=== PATIENT | female | born 1945 | race Caucasian/White ===

== ENCOUNTER 2017-02-25 03:53 | Inpatient (IN) | payer MEDICARE ==
[~2017-02-25] VITALS: Ht 157.5 cm; Wt 83.7 kg
[2017-02-25] VITALS (13 sets, daily range): BP systolic 134–178; BP diastolic 61–91; PULSE 92–115; RESP 18–19; TEMP 97.3–98.9; O2SAT 95–98
[2017-02-25] MEDS ORDERED: SODIUM CHLOR 0.9% 1000 ML INJ 1,000 ML IV SCH (04:35)
[2017-02-25] MEDS ORDERED: ASPI81CH37 CHEW (04:39)
[2017-02-25] MEDS ORDERED: XANA1TAB2 PO (04:39)
[2017-02-25] MEDS ORDERED: LEVO25TA4 PO (04:39)
[2017-02-25] MEDS ORDERED: PAXI40TA PO (04:39)
[2017-02-25] MEDS ORDERED: LISI10TA3 PO (04:39)
[2017-02-25] MEDS ORDERED: SODIUM CHLORIDE 0.9% FLUSH 10 ML FLUSH IV FLUSH PRN ×2 (04:45→07:15)
--- NOTE | 2017-02-25 05:08 | PD ---
HPI Chief Complaint: Complaint Time Seen by Provider: 04:35 Travel History International Travel<30 days: No Contact w/Intl Traveler<30days: No Traveled to known affect area: No History of Present Illness HPI 71-year-old female presents to the emergency department by private transportation for complaint of inability to urinate comfortably and decreased urine output volume since approximate 8:30 PM on evening. Patient complains of dysuria. Patient's noted some blood in her urine. Patient has prior history of kidney stones. Patient denies other concerns or complaints. Patient rates pain as moderate to severe. Patient is status post cholecystectomy. Patient also history of anxiety and took Xanax 2 mg prior to arrival to the emergency Department. No fever no chills no nausea no vomiting no flank pain. No vaginal discharge or abnormal stools. PFSH Past Medical History Narrative Medical Anxiety, hypertension, kidney stones, hypothyroidism, cholecystectomy, orthopedic surgery; no tobacco use; nursing notes reviewed Anxiety: Yes Cardiovascular Problems: Yes Diminished Hearing: No Hypertension: Yes Immunizations Current: Yes Thyroid Disease: Yes Tetanus Vaccination: Unknown Influenza Vaccination: Yes ?: Not Menopausal: Yes Social History Alcohol Use: Yes Tobacco Use: No Substance Use: No Allergies-Medications (Allergen,Severity, Reaction): Coded Allergies: No Known Allergies (Unverified , 02/25/17) Reported Meds & Prescriptions Reported Meds & Active Scripts Active Reported Xanax (Alprazolam) 1 Mg Tab 1 Mg PO Q6H PRN Aspirin Low Dose (Aspirin) 81 Mg Chew 81 Mg CHEW DAILY Lisinopril 10 Mg Tab 10 Mg PO DAILY Levothyroxine (Levothyroxine Sodium) 25 Mcg Tab 25 Mcg PO DAILY Paxil (Paroxetine HCl) 40 Mg Tab 50 Mg PO DAILY Review of Systems Except as stated in HPI: all other systems reviewed are Neg Physical Exam Narrative GENERAL: Well-developed well-nourished mildly anxious female in no respiratory distress SKIN: Warm and dry. HEAD: Normocephalic. EYES: No scleral icterus. No injection or drainage. NECK: Supple, trachea midline. No JVD or lymphadenopathy. CARDIOVASCULAR: Regular rate and rhythm without murmurs, gallops, or rubs. RESPIRATORY: Breath sounds equal bilaterally. No accessory muscle use. GASTROINTESTINAL: Abdomen soft, mild suprapubic and left sided tenderness to direct palpation without guarding or rebound, nondistended. MUSCULOSKELETAL: No cyanosis, or edema. BACK: Nontender without obvious deformity. No CVA tenderness. Data Data Last Documented VS Vital Signs Date Time Temp Pulse Resp B/P Pulse Ox O2 Delivery O2 Flow Rate FiO2 02/25/17 06:30 102 18 161/86 98 Room Air 02/25/17 04:24 98.7 Orders Basic Metabolic Panel (Bmp) (02/25/17 04:35) Complete Blood Count With Diff (02/25/17 04:35) Urinalysis - C+S If Indicated (02/25/17 04:35) Iv Access Insert/Monitor (02/25/17 04:35) Ecg Monitoring (02/25/17 04:35) Oximetry (02/25/17 04:35) Sodium Chlor 0.9% 1000 Ml Inj (Ns 1000 M (02/25/17 04:35) Sodium Chloride 0.9% Flush (Ns Flush) (02/25/17 04:45) Sodium Chlor 0.9% 1000 Ml Inj (Ns 1000 M (02/25/17 05:45) Blood Culture (02/25/17 05:31) Lactic Acid (02/25/17 05:31) Piperacil-Tazo 3.375 Gm Premix (Zosyn 3. (02/25/17 05:45) Urine Culture (02/25/17 04:50) Ct Abd/Pel W Iv Contrast(Rout) (02/25/17 ) Iohexol 350 Inj (Omnipaque 350 Inj) (02/25/17 06:15) Labs Laboratory Tests Test 02/25/17 02/25/17 04:40 04:50 Lactic Acid Level 1.7 mmol/L White Blood Count 21.0 TH/MM3 Red Blood Count 4.95 MIL/MM3 Hemoglobin 14.7 GM/DL Hematocrit 43.7 % Mean Corpuscular Volume 88.3 FL Mean Corpuscular Hemoglobin 29.6 PG Mean Corpuscular Hemoglobin 33.6 % Concent Red Cell Distribution Width 12.6 % Platelet Count 258 TH/MM3 Mean Platelet Volume 9.3 FL Neutrophils (%) (Auto) 79.1 % Lymphocytes (%) (Auto) 12.6 % Monocytes (%) (Auto) 5.3 % Eosinophils (%) (Auto) 1.7 % Basophils (%) (Auto) 1.3 % Neutrophils # (Auto) 16.5 TH/MM3 Lymphocytes # (Auto) 2.7 TH/MM3 Monocytes # (Auto) 1.1 TH/MM3 Eosinophils # (Auto) 0.4 TH/MM3 Basophils # (Auto) 0.3 TH/MM3 CBC Comment DIFF FINAL Differential Comment Urine Color YELLOW Urine Turbidity CLOUDY Urine pH 5.5 Urine Specific [place] 1.020 Urine Protein 300 OR GREATER mg/dL Urine Glucose (UA) NEG mg/dL Urine Ketones TRACE mg/dL Urine Occult Blood LARGE Urine Nitrite POS Urine Bilirubin NEG Urine Leukocyte Esterase MOD Urine RBC 50-99 /hpf Urine WBC 50-99 /hpf Urine WBC Clumps MOD Urine Squamous Epithelial 6-8 /hpf Cells Urine Bacteria MOD /hpf Microscopic Urinalysis Comment CULTURE INDICATED Sodium Level 138 MEQ/L Potassium Level 3.9 MEQ/L Chloride Level 103 MEQ/L Carbon Dioxide Level 26.1 MEQ/L Anion Gap 9 MEQ/L Blood Urea Nitrogen 17 MG/DL Creatinine 0.80 MG/DL Estimat Glomerular Filtration 71 ML/MIN Rate Random Glucose 118 MG/DL Calcium Level 9.0 MG/DL [facility] Medical Decision Making Medical Screen Exam Complete: Yes Emergency Medical Condition: Yes Medical Record Reviewed: Yes Interpretation(s) UA: Positive nitrites positive leukocyte Estrace positive WBCs positive for clumped wbc's, positive rbc's, positive blood positive bacteria cultures indicated Last Impressions Abdomen/Pelvis CT 02/25/17 0000 Signed Impressions: Service Date/Time: Saturday, February 25, 2017 06:05 - CONCLUSION: 1. Mild thickening of the bladder wall. Differential diagnosis includes cystitis in patient with history of dysuria. 2. No acute findings in the remainder of the abdomen and pelvis. Small hiatal hernia. Cholecystectomy. Mild fatty liver. Guille Justice MD CBC & BMP Diagram 02/25/17 04:50 Vital Signs Date Time Temp Pulse Resp B/P Pulse Ox O2 Delivery O2 Flow Rate FiO2 02/25/17 06:30 102 18 161/86 98 Room Air 02/25/17 06:30 102 18 02/25/17 05:34 106 18 151/75 95 Room Air 02/25/17 04:40 18 98 Room Air 02/25/17 04:26 115 18 02/25/17 04:24 98.7 115 18 178/91 98 02/25/17 04:05 98.7 115 18 178/91 98 Differential Diagnosis Cystitis, UTI, pyelonephritis, diverticulitis, renal colic, renal insufficiency , dehydration Narrative Course IV access obtained specimens collected and sent for resulting patient administered normal saline along with urine specimen collected Patient identified to have marked leukocytosis patient given additional IV fluid bolus lactic acid and blood cultures ordered patient administered Zosyn as well as CT abdomen and pelvis ordered At 6 AM patient now discloses a yesterday she had a non-syncopal trip and fall landing on her left knee and buttock but did not hit her head did not have loss of consciousness did not injure her neck or upper back also noninjected chest ribs or abdomen. Sepsis Criteria SIRS Criteria (2 or more): Heart rate over 90, WBC > 58346, < 4000 or > 10% bands Sepsis Criteria (SIRS+source): Infect source susp/known (UTI/pyelonephritis) Physician Communication Physician Communication call placed to [facility] service for admission --patient meets sepsis criterion Diagnosis Primary Impression: Cystitis Additional Impression: Sepsis Qualified Code: A41.9 - Sepsis, due to unspecified organism Admitting Information Admitting Physician Requests: Admit Maryan Kaplan MD February 25, 2017 05:08
[2017-02-25 05:10] LABS: AUTOMATED NEUTROPHIL # 16.5 TH/MM3 (1.8-7.7); BASOPHIL # 0.3 TH/MM3 (0-0.2); BASOPHIL % 1.3 % (0.0-2.0); EOSINOPHIL # 0.4 TH/MM3 (0-0.4); EOSINOPHIL % 1.7 % (0.0-4.0); HEMATOCRIT 43.7 % (35.0-46.0); LYMPH % 12.6 % (9.0-44.0); LYMPHOCYTE # 2.7 TH/MM3 (1.0-4.8); MEAN CELL VOLUME 88.3 FL (80.0-100.0); MEAN CORPUSCULAR HEMOGLOBIN 29.6 PG (27.0-34.0); MEAN CORPUSCULAR HGB CONC 33.6 % (32.0-36.0); MONO % 5.3 % (0.0-8.0); NEUT % 79.1 % (16.0-70.0); PLATELET COUNT 258 TH/MM3 (150-450); RED BLOOD COUNT 4.95 MIL/MM3 (4.00-5.30); RED CELL DISTRIBUTION WIDTH 12.6 % (11.6-17.2)
[2017-02-25 05:12] LABS: HEMO FLAGS DIFF FINAL
[2017-02-25 05:16] LABS: BLOOD, URINE LARGE (NEG); GLUCOSE,URINE NEG (NEG); KETONE, URINE TRACE mg/dL (NEG); PH, URINE 5.5 (5.0-8.5)
[2017-02-25 05:19] LABS: POTASSIUM 3.9 MEQ/L (3.5-5.1)
[2017-02-25 05:22] LABS: BICARBONATE 26.1 MEQ/L (21.0-32.0)
[2017-02-25 05:28] LABS: NITRITE,URINE POS (NEG)
[2017-02-25 05:32] LABS: URINE COLOR YELLOW (YELLW/STRAW)
[2017-02-25 05:33] LABS: BACTERIA, URINE MOD /hpf; COMMENT (UR) CULTURE INDICATED; CULTURE IF INDICATED CULTURE INDICATED
[2017-02-25] MEDS ORDERED: PIPERACIL-TAZO 3.375 GM PREMIX 50 ML IV ONE (05:45)
[2017-02-25] MEDS ORDERED: SODIUM CHLOR 0.9% 1000 ML INJ 1,000 ML IV ONE (05:45)
[2017-02-25] MEDS ORDERED: IOHEXOL 350 MG/ML 10 ML VIAL (for RAD DIAG) IV ONE (06:15)
--- NOTE | 2017-02-25 06:38 | RADHPO ---
EXAM DATE/TIME: 02/25/2017 06:05 [place] COMPARISON: No previous studies available for comparison. INDICATIONS : Dysuria. IV CONTRAST: 95 cc Omnipaque 350 (iohexol) IV ORAL CONTRAST: No oral contrast ingested. RADIATION DOSE: 16.77 CTDIvol (mGy) MEDICAL HISTORY : Hyperparathyroidism. SURGICAL HISTORY : None. ENCOUNTER: Initial ACUITY: 1 day PAIN SCALE: 4/10 LOCATION: Abdomen. TECHNIQUE: Volumetric scanning of the abdomen and pelvis was performed. Using automated exposure control and ad justment of the mA and/or kV according to patient size, radiation dose was kept as low as reasonably achievable to obtain optimal diagnostic quality images. FINDINGS: Lung bases are clear. Small hiatal hernia. Mild fatty liver. Spleen, adrenals and pancreas unremarkab le. Previous cholecystectomy. Small bilateral renal cysts. There is mild constipation. No adenopathy. No bowel obstruction. No free air or free fluid. Bladder wall is mildly thickened. Consider mild cystitis in patient with dysuria. CONCLUSION: 1. Mild thickening of the bladder wall. Differential diagnosis includes cystitis in patient with hist ory of dysuria. 2. No acute findings in the remainder of the abdomen and pelvis. Small hiatal hernia. Cholecystectomy . Mild fatty liver. Guille Justice MD on February 25, 2017 at 6:32 Board Certified Radiologist. This report was verified electronically.
[2017-02-25] MEDS ORDERED: ONDANSETRON HCL 4 MG/2 ML VIAL IVP PRN (07:15)
[2017-02-25] MEDS ORDERED: ACETAMINOPHEN 325 MG TAB PO PRN (07:15)
[2017-02-25] MEDS ORDERED: ENALAPRILAT 2.5 MG/2 ML VIAL IV PUSH PRN (07:15)
[2017-02-25] MEDS ORDERED: MAGNESIUM HYDROXIDE SUSP 30 ML CUP PO PRN (07:15)
[2017-02-25] MEDS ORDERED: SODIUM CHLORIDE 0.9% FLUSH 10 ML FLUSH IVF PRN (07:15)
[2017-02-25] MEDS ORDERED: ALPRAZolam 1 MG TAB PO PRN (07:15)
[2017-02-25] MEDS ORDERED: PILL SPLITTER OTHER PRN (07:30)
[2017-02-25] MEDS: SODIUM CHLOR 0.9% 1000 ML INJ 1,000 ML IV SCH ×2 (07:51→17:09)
[2017-02-25] MEDS: LEVOTHYROXINE SODIUM 25 MCG TAB PO SCH (07:52)
[2017-02-25] MEDS: LEVOFLOXACIN 750 MG PREMIX INJ 150 ML IV SCH (07:52)
[2017-02-25] MEDS: SODIUM CHLORIDE 0.9% FLUSH 10 ML FLUSH IV FLUSH SCH ×2 (07:54→21:00)
[2017-02-25] MEDS ORDERED: SODIUM CHLORIDE 0.9% FLUSH 10 ML FLUSH IV FLUSH SCH (09:00)
[2017-02-25] MEDS: PARoxetine HCL 20 MG TAB PO SCH (10:15)
[2017-02-25] MEDS: LISINOPRIL 10 MG TAB PO SCH (10:15)
--- NOTE | 2017-02-25 11:09 | HHI.HP ---
HPI Service [facility] Primary Care Physician Sabiha Ashton MD Admission Diagnosis Cystitis; sepsis Diagnoses: Chief Complaint: unable to urinate, suprapubic pain Travel History International Travel<30 Days: No Contact w/Intl Traveler <30 Da: No Traveled to Known Affected Are: No History of Present Illness 71-year-old female presents to the emergency department by private transportation for complaint of inability to urinate comfortably and decreased urine output volume since approximate 8:30 PM on evening. Patient complains of dysuria. Patient's noted some blood in her urine. Patient has prior history of kidney stones. Patient denies other concerns or complaints. Patient rates pain as moderate to severe. Patient is status post cholecystectomy. Patient also history of anxiety and took Xanax 2 mg prior to arrival to the emergency Department. No fever, no chills, no nausea, no vomiting, no flank pain. No vaginal discharge or abnormal stools. Patient says she was unable to urinate for 8 hrs and had severe suprapubic pain. Patient with sepsis/cystitis. Started IV abx and IVF. Patient has a good urine OP now. Review of Systems Except as stated in HPI: all other systems reviewed are Neg Past Family Social History Past Medical History HTN Hypothyroidism Depression Anxiety H/o kidney stones 19 ya Past Surgical History Cholecystectomy, orthopedic surgery Reported Medications Reported Meds & Active Scripts Active Reported Xanax (Alprazolam) 1 Mg Tab 1 Mg PO Q6H PRN Aspirin Low Dose (Aspirin) 81 Mg Chew 81 Mg CHEW DAILY Lisinopril 10 Mg Tab 10 Mg PO DAILY Levothyroxine (Levothyroxine Sodium) 25 Mcg Tab 25 Mcg PO DAILY Paxil (Paroxetine HCl) 40 Mg Tab 50 Mg PO DAILY Allergies: Coded Allergies: No Known Allergies (Unverified , 02/25/17) Family History Mother and sister with Afib Father at 53 ya, heart problems/ EtOH Social History Occasional EtOH use No tobacco use or illicit drug use Physical Exam Vital Signs Vital Signs Date Time Temp Pulse Resp B/P Pulse Ox O2 Delivery O2 Flow Rate FiO2 02/25/17 09:47 97.5 102 18 151/88 97 02/25/17 07:27 110 18 166/69 97 Room Air 02/25/17 06:30 102 18 161/86 98 Room Air 02/25/17 06:30 102 18 02/25/17 05:34 106 18 151/75 95 Room Air 02/25/17 04:40 18 98 Room Air 02/25/17 04:26 115 18 02/25/17 04:24 98.7 115 18 178/91 98 02/25/17 04:05 98.7 115 18 178/91 98 Physical Exam GENERAL: This is a pleasant 71 yo F, well-nourished, well-developed patient, in no apparent distress. SKIN: No rashes, ecchymoses or lesions. Cool and dry. HEAD: Atraumatic. Normocephalic. No temporal or scalp tenderness. EYES: Pupils equal round and reactive. Extraocular motions intact. No scleral icterus. No injection or drainage. ENT: Nose without bleeding, purulent drainage or septal hematoma. Throat without erythema, tonsillar hypertrophy or exudate. Uvula midline. Airway patent. NECK: Trachea midline. No JVD or lymphadenopathy. Supple, nontender, no meningeal signs. CARDIOVASCULAR: Regular rate and rhythm without murmurs, gallops, or rubs. RESPIRATORY: Clear to auscultation. Breath sounds equal bilaterally. No wheezes , rales, or rhonchi. GASTROINTESTINAL: Abdomen soft, mild suprapubic pain, no rebound, nondistended. No hepato-splenomegaly, or palpable masses. No guarding. MUSCULOSKELETAL: Extremities without clubbing, cyanosis, or edema. No joint tenderness, effusion, or edema noted. No calf tenderness. Negative Homans sign bilaterally. NEUROLOGICAL: Awake and alert. Cranial nerves II through XII intact. Motor and sensory grossly within normal limits. Five out of 5 muscle strength in all muscle groups. Normal speech. Laboratory Laboratory Tests Test 02/25/17 02/25/17 04:40 04:50 Lactic Acid Level 1.7 White Blood Count 21.0 Red Blood Count 4.95 Hemoglobin 14.7 Hematocrit 43.7 Mean Corpuscular Volume 88.3 Mean Corpuscular Hemoglobin 29.6 Mean Corpuscular Hemoglobin 33.6 Concent Red Cell Distribution Width 12.6 Platelet Count 258 Mean Platelet Volume 9.3 Neutrophils (%) (Auto) 79.1 Lymphocytes (%) (Auto) 12.6 Monocytes (%) (Auto) 5.3 Eosinophils (%) (Auto) 1.7 Basophils (%) (Auto) 1.3 Neutrophils # (Auto) 16.5 Lymphocytes # (Auto) 2.7 Monocytes # (Auto) 1.1 Eosinophils # (Auto) 0.4 Basophils # (Auto) 0.3 CBC Comment DIFF FINAL Differential Comment Urine Color YELLOW Urine Turbidity CLOUDY Urine pH 5.5 Urine Specific [place] 1.020 Urine Protein 300 OR GREATER Urine Glucose (UA) NEG Urine Ketones TRACE Urine Occult Blood LARGE Urine Nitrite POS Urine Bilirubin NEG Urine Leukocyte Esterase MOD Urine RBC 50-99 Urine WBC 50-99 Urine WBC Clumps MOD Urine Squamous Epithelial 6-8 Cells Urine Bacteria MOD Microscopic Urinalysis Comment CULTURE INDICATED Sodium Level 138 Potassium Level 3.9 Chloride Level 103 Carbon Dioxide Level 26.1 Anion Gap 9 Blood Urea Nitrogen 17 Creatinine 0.80 Estimat Glomerular Filtration 71 Rate Random Glucose 118 Calcium Level 9.0 Date/Time Procedure Status Source Growth 02/25/17 05:45 Aerobic Blood Culture Received Blood Peripheral Pending 02/25/17 05:45 Anaerobic Blood Culture Received Blood Peripheral Pending 02/25/17 04:50 Urine Culture Received Urine Clean Catch Pending Result Diagram: 02/25/17 0450 02/25/17 0450 Imaging Last Impressions Abdomen/Pelvis CT 02/25/17 0000 Signed Impressions: Service Date/Time: Saturday, February 25, 2017 06:05 - CONCLUSION: 1. Mild thickening of the bladder wall. Differential diagnosis includes cystitis in patient with history of dysuria. 2. No acute findings in the remainder of the abdomen and pelvis. Small hiatal hernia. Cholecystectomy. Mild fatty liver. Guille Justice MD Assessment and Plan Assessment and Plan Sepsis (Heart rate over 90, WBC > 59968, < 4000 or > 10% bands), source is UTI/ cystitis [place] normal Received zosyn IV in the ED. CT abd/pelvis reviewed and findings discussed with Dr Robertson ED physcian findings consistent with cystitis Urine cultures, blood cultures are pending Start IV levaquin Monitor VS PT for evaluation Chronic medical problems HTN, hypothyroidism, depression/anxiety appears stable at this time. Restart home meds. Monitor DVT ppx SCD/TEDs Discussed Condition With patient, nurse, ED physician Physician Certification 2 Midnight Certification Type: Admission for Inpatient Services Order for Inpatient Services The services are ordered in accordance with Medicare regulations or non- Medicare payer requirements, as applicable. In the case of services not specified as inpatient-only, they are appropriately provided as inpatient services in accordance with the 2-midnight benchmark. Estimated LOS (days): 3 days is the estimated time the patient will need to remain in the hospital, assuming treatment plan goals are met and no additional complications. Post-Hospital Plan: Not yet determined Di Olmos MD February 25, 2017 11:09
[2017-02-26 00:05] VITALS: BP 146/98; PULSE 92; RESP 16; TEMP 98.6; O2SAT 96
[2017-02-26] MEDS: SODIUM CHLOR 0.9% 1000 ML INJ 1,000 ML IV SCH (03:09)
[2017-02-26 04:16] VITALS: BP 144/73; PULSE 85; RESP 16; TEMP 97.9; O2SAT 97
[2017-02-26] MEDS: LEVOTHYROXINE SODIUM 25 MCG TAB PO SCH (05:59)
[2017-02-26 07:44] LABS: AUTOMATED NEUTROPHIL # 5.4 TH/MM3 (1.8-7.7); BASOPHIL # 0.1 TH/MM3 (0-0.2); BASOPHIL % 0.6 % (0.0-2.0); EOSINOPHIL # 0.6 TH/MM3 (0-0.4); EOSINOPHIL % 6.3 % (0.0-4.0); HEMATOCRIT 36.8 % (35.0-46.0); HEMO FLAGS DIFF FINAL; LYMPH % 29.7 % (9.0-44.0); MEAN CELL VOLUME 88.3 FL (80.0-100.0); MEAN CORPUSCULAR HEMOGLOBIN 29.7 PG (27.0-34.0); MEAN CORPUSCULAR HGB CONC 33.6 % (32.0-36.0); MONO % 9.1 % (0.0-8.0); NEUT % 54.3 % (16.0-70.0); PLATELET COUNT 210 TH/MM3 (150-450); RED BLOOD COUNT 4.16 MIL/MM3 (4.00-5.30); RED CELL DISTRIBUTION WIDTH 12.7 % (11.6-17.2)
[2017-02-26 07:57] LABS: POTASSIUM 3.6 MEQ/L (3.5-5.1)
[2017-02-26 08:00] VITALS: BP 135/69; PULSE 79; RESP 20; TEMP 96.9; O2SAT 98
[2017-02-26 08:19] LABS: BICARBONATE 26.1 MEQ/L (21.0-32.0)
[2017-02-26] MEDS: LEVOFLOXACIN 750 MG PREMIX INJ 150 ML IV SCH (08:30)
[2017-02-26] MEDS: SODIUM CHLORIDE 0.9% FLUSH 10 ML FLUSH IV FLUSH SCH ×2 (08:30→21:35)
[2017-02-26] MEDS: PARoxetine HCL 20 MG TAB PO SCH (08:31)
[2017-02-26] MEDS: LISINOPRIL 10 MG TAB PO SCH (08:31)
--- NOTE | 2017-02-26 08:43 | HHI.PR ---
Subjective Remarks Says she has increased urination now and was not able to sleep much overnight. Says urine is getting credit investigator in color. Less pain with urination. No fever or chills overnight. Able to eat some breakfast . No n/v/d/c. Feels improving today. Objective Vitals Vital Signs Date Time Temp Pulse Resp B/P Pulse Ox O2 Delivery O2 Flow Rate FiO2 02/26/17 08:00 96.9 79 20 135/69 98 02/26/17 04:16 97.9 85 16 144/73 97 02/26/17 00:05 98.6 92 16 146/98 96 02/25/17 20:40 96 21 02/25/17 20:16 98.9 92 18 134/61 97 02/25/17 20:00 92 02/25/17 16:47 96 21 02/25/17 16:20 97.6 105 18 152/87 96 02/25/17 13:22 97.3 104 19 154/89 96 02/25/17 09:47 97.5 102 18 151/88 97 I/O 02/25/17 02/25/17 02/25/17 02/26/17 02/26/17 02/26/17 07:00 15:00 23:00 07:00 15:00 23:00 Intake Total 1000 ml 900 ml 1200 ml 1200 ml Balance 1000 ml 900 ml 1200 ml 1200 ml Intake Oral 1200 ml IV Total 1000 ml 900 ml 1200 ml # Voids 4 2 Result Diagram: 02/26/17 0706 02/26/17 0706 Imaging Last Impressions Abdomen/Pelvis CT 02/25/17 0000 Signed Impressions: Service Date/Time: Saturday, February 25, 2017 06:05 - CONCLUSION: 1. Mild thickening of the bladder wall. Differential diagnosis includes cystitis in patient with history of dysuria. 2. No acute findings in the remainder of the abdomen and pelvis. Small hiatal hernia. Cholecystectomy. Mild fatty liver. Guille Justice MD Objective Remarks GENERAL: This is a pleasant 71 yo F, well-nourished, well-developed patient, in no apparent distress. SKIN: No rashes, ecchymoses or lesions. Cool and dry. HEAD: Atraumatic. Normocephalic. No temporal or scalp tenderness. EYES: Pupils equal round and reactive. Extraocular motions intact. No scleral icterus. No injection or drainage. ENT: Nose without bleeding, purulent drainage or septal hematoma. Throat without erythema, tonsillar hypertrophy or exudate. Uvula midline. Airway patent. NECK: Trachea midline. No JVD or lymphadenopathy. Supple, nontender, no meningeal signs. CARDIOVASCULAR: Regular rate and rhythm without murmurs, gallops, or rubs. RESPIRATORY: Clear to auscultation. Breath sounds equal bilaterally. No wheezes , rales, or rhonchi. GASTROINTESTINAL: Abdomen soft, mild suprapubic pain, no rebound, nondistended. No hepato-splenomegaly, or palpable masses. No guarding. MUSCULOSKELETAL: Extremities without clubbing, cyanosis, or edema. No joint tenderness, effusion, or edema noted. No calf tenderness. Negative Homans sign bilaterally. NEUROLOGICAL: Awake and alert. Cranial nerves II through XII intact. Motor and sensory grossly within normal limits. Five out of 5 muscle strength in all muscle groups. Normal speech. A/P Assessment and Plan Sepsis (Heart rate over 90, WBC > 84275, < 4000 or > 10% bands), source is UTI/ cystitis on admission [place] normal Received zosyn IV in the ED. CT abd/pelvis reviewed and findings discussed with Dr Robertson ED physcian findings consistent with cystitis Urine cultures, blood cultures are pending Continue IV levaquin Monitor VS PT for evaluation Chronic medical problems HTN, hypothyroidism, depression/anxiety appears stable at this time. Restart home meds. Monitor DVT ppx SCD/TEDs Discussed Condition With patient, nurse DC plan: PT recommends home with home health. Plan to DC when improved. Poss DC in 1-2 days if improving. Di Olmos MD February 26, 2017 08:43
[2017-02-26 12:00] VITALS: BP 141/78; PULSE 88; RESP 20; TEMP 96.4; O2SAT 96
[2017-02-26 16:00] VITALS: BP 146/86; PULSE 85; RESP 20; TEMP 97.5; O2SAT 97
[2017-02-26 21:22] VITALS: BP 155/83; PULSE 84; RESP 18; TEMP 98.4; O2SAT 96
[2017-02-27 00:55] VITALS: BP 140/83; PULSE 85; RESP 16; TEMP 98; O2SAT 96
[2017-02-27 05:12] VITALS: BP 133/65; PULSE 81; RESP 16; TEMP 97; O2SAT 96
[2017-02-27] MEDS: LEVOTHYROXINE SODIUM 25 MCG TAB PO SCH (06:12)
[2017-02-27 08:00] VITALS: BP 146/71; PULSE 83; RESP 18; TEMP 97; O2SAT 94
[2017-02-27 08:55] LABS: AUTOMATED NEUTROPHIL # 5.9 TH/MM3 (1.8-7.7); BASOPHIL # 0.1 TH/MM3 (0-0.2); BASOPHIL % 0.6 % (0.0-2.0); EOSINOPHIL # 0.7 TH/MM3 (0-0.4); EOSINOPHIL % 6.5 % (0.0-4.0); HEMATOCRIT 39.5 % (35.0-46.0); HEMO FLAGS DIFF FINAL; LYMPH % 27.5 % (9.0-44.0); LYMPHOCYTE # 2.9 TH/MM3 (1.0-4.8); MEAN CELL VOLUME 87.8 FL (80.0-100.0); MEAN CORPUSCULAR HEMOGLOBIN 29.9 PG (27.0-34.0); MEAN CORPUSCULAR HGB CONC 34.1 % (32.0-36.0); MONO % 8.2 % (0.0-8.0); NEUT % 57.2 % (16.0-70.0); PLATELET COUNT 237 TH/MM3 (150-450); RED CELL DISTRIBUTION WIDTH 13.1 % (11.6-17.2); WHITE BLOOD COUNT 10.5 TH/MM3 (4.0-11.0)
[2017-02-27] MEDS ORDERED: CIPR500T2 PO (08:57)
[2017-02-27 08:58] LABS: POTASSIUM 3.5 MEQ/L (3.5-5.1)
--- NOTE | 2017-02-27 08:58 | HHI.DS ---
Discharge Summary Admission Date February 25, 2017 at 07:12 Discharge Date: February 27, 2017 Admitting Diagnosis Cystitis; sepsis (1) Sepsis ICD Code: A41.9 Diagnosis: Principal (2) Cystitis ICD Code: N30.90 Diagnosis: Principal (3) Hypertension ICD Code: I10 Diagnosis: Secondary Procedures none Brief History - From Admission 71-year-old female presents to the emergency department by private transportation for complaint of inability to urinate comfortably and decreased urine output volume since approximate 8:30 PM on evening. Patient complains of dysuria. Patient's noted some blood in her urine. Patient has prior history of kidney stones. Patient denies other concerns or complaints. Patient rates pain as moderate to severe. Patient is status post cholecystectomy. Patient also history of anxiety and took Xanax 2 mg prior to arrival to the emergency Department. No fever, no chills, no nausea, no vomiting, no flank pain. No vaginal discharge or abnormal stools. Patient says she was unable to urinate for 8 hrs and had severe suprapubic pain. Patient with sepsis/cystitis. Started IV abx and IVF. Patient has a good urine OP now. CBC/BMP: 02/27/17 0811 02/26/17 0706 Significant Findings Laboratory Tests Test 02/25/17 02/26/17 02/27/17 04:50 07:06 08:11 Estimat Glomerular Filtration 71 ML/MIN (>89) 86 ML/MIN (>89) Rate Random Glucose 118 MG/DL (74-106) White Blood Count 21.0 TH/MM3 (4.0-11.0) Neutrophils (%) (Auto) 79.1 % (16.0-70.0) Neutrophils # (Auto) 16.5 TH/MM3 (1.8-7.7) Monocytes # (Auto) 1.1 TH/MM3 (0-0.9) Basophils # (Auto) 0.3 TH/MM3 (0-0.2) Urine Turbidity CLOUDY (CLEAR) Urine Protein 300 OR GREATER mg/dL (NEG-TRACE) Urine Ketones TRACE mg/dL (NEG) Urine Occult Blood LARGE (NEG) Urine Nitrite POS (NEG) Urine Leukocyte Esterase MOD (NEG) Urine RBC 50-99 /hpf (0-3) Urine WBC 50-99 /hpf (0-5) Urine WBC Clumps MOD (NONE) Urine Squamous Epithelial 6-8 /hpf (0-5) Cells Urine Bacteria MOD /hpf (NONE) Monocytes (%) (Auto) 9.1 % (0.0-8.0) 8.2 % (0.0-8.0) Eosinophils (%) (Auto) 6.3 % (0.0-4.0) 6.5 % (0.0-4.0) Eosinophils # (Auto) 0.6 TH/MM3 0.7 TH/MM3 (0-0.4) (0-0.4) Chloride Level 110 MEQ/L (98-107) Calcium Level 8.0 MG/DL (8.5-10.1) Imaging Last Impressions Abdomen/Pelvis CT 02/25/17 0000 Signed Impressions: Service Date/Time: Saturday, February 25, 2017 06:05 - CONCLUSION: 1. Mild thickening of the bladder wall. Differential diagnosis includes cystitis in patient with history of dysuria. 2. No acute findings in the remainder of the abdomen and pelvis. Small hiatal hernia. Cholecystectomy. Mild fatty liver. Guille Justice MD PE at Discharge GENERAL: This is a pleasant 71 yo F, well-nourished, well-developed patient, in no apparent distress. SKIN: No rashes, ecchymoses or lesions. Cool and dry. HEAD: Atraumatic. Normocephalic. No temporal or scalp tenderness. EYES: Pupils equal round and reactive. Extraocular motions intact. No scleral icterus. No injection or drainage. ENT: Nose without bleeding, purulent drainage or septal hematoma. Throat without erythema, tonsillar hypertrophy or exudate. Uvula midline. Airway patent. NECK: Trachea midline. No JVD or lymphadenopathy. Supple, nontender, no meningeal signs. CARDIOVASCULAR: Regular rate and rhythm without murmurs, gallops, or rubs. RESPIRATORY: Clear to auscultation. Breath sounds equal bilaterally. No wheezes , rales, or rhonchi. GASTROINTESTINAL: Abdomen soft, mild suprapubic pain, no rebound, nondistended. No hepato-splenomegaly, or palpable masses. No guarding. MUSCULOSKELETAL: Extremities without clubbing, cyanosis, or edema. No joint tenderness, effusion, or edema noted. No calf tenderness. Negative Homans sign bilaterally. NEUROLOGICAL: Awake and alert. Cranial nerves II through XII intact. Motor and sensory grossly within normal limits. Five out of 5 muscle strength in all muscle groups. Normal speech. Pt update on day of discharge Feels much better. No fever or chills. No events overnight. Hospital Course Sepsis (Heart rate over 90, WBC > 90724, < 4000 or > 10% bands), source is UTI/ cystitis on admission. GNR on urine cx. LA normal Received zosyn IV in the ED. CT abd/pelvis reviewed and findings discussed with ED physician findings consistent with cystitis Urine cultures GNR id and sensitivity pending, monitor and change antibiotics if need. Blood cultures are NTD Received IV levaquin, switch to PO antibiotics at DC Monitor VS PT for evaluation Chronic medical problems HTN, hypothyroidism, depression/anxiety appears stable at this time. Restart home meds. Monitor DVT ppx SCD/TEDs Discussed Condition With patient, nurse DC plan: PT recommends home with home health. Improved earlier than expected. Discharge home with home health in stable condition, to follow up as OP with PCP and consultants. Pt Condition on Discharge: Stable Discharge Disposition: Disch w/ Home Health Serv Discharge Time: > 30 minutes Discharge Instructions DIET: Follow Instructions for: Heart Healthy Diet Activities you can perform: Regular-No Restrictions Follow up Referrals: PCP Follow-up - 3-5 Days SNF/[facility]/ with [facility] New Medications: Ciprofloxacin (Ciprofloxacin) 500 Mg Tab 500 MG PO BID Infection #10 Ref 0 TAB Continued Medications: Alprazolam (Xanax) 1 Mg Tab 1 MG PO Q6H PRN ANXIETY Ref 0 TAB Aspirin (Aspirin Low Dose) 81 Mg Chew 81 MG CHEW DAILY Ref 0 TAB Levothyroxine (Levothyroxine) 25 Mcg Tab 25 MCG PO DAILY Thyroid #30 Ref 0 TAB Lisinopril (Lisinopril) 10 Mg Tab 10 MG PO DAILY #30 Ref 0 TAB Paroxetine (Paxil) 40 Mg Tab 50 MG PO DAILY #30 Ref 0 TAB Di Olmos MD February 27, 2017 08:58
[2017-02-27 09:01] LABS: BICARBONATE 28.3 MEQ/L (21.0-32.0); MAGNESIUM 2.2 MG/DL (1.5-2.5)
[2017-02-27] MEDS: LEVOFLOXACIN 750 MG PREMIX INJ 150 ML IV SCH (09:03)
[2017-02-27] MEDS: SODIUM CHLORIDE 0.9% FLUSH 10 ML FLUSH IV FLUSH SCH (09:03)
[2017-02-27] MEDS: LISINOPRIL 10 MG TAB PO SCH (09:04)
[2017-02-27] MEDS: PARoxetine HCL 20 MG TAB PO SCH (09:04)
--- NOTE | 2017-02-27 11:36 | HHI.FF ---
Face to Face Verification Diagnosis: (1) Sepsis (2) Cystitis (3) Hypertension Physical Therapy Order: Evaluate and Treat Home Health Nursing Order: Medical education Medication education-adverse effect Nursing assessment with vital signs I have seen patient Emilee Greco on 02/27/17. My clinical findings support the need for the requested home health care services because: Ltd mobility - disease progression I certify that my clinical findings support that this patient is homebound because: Post-op weakness Di Olmos MD February 27, 2017 11:36
== END 2017-02-27 11:12 | disposition home health service (06) | DRG 872 ==
LOC: PHED 03:53 → PHEDA 07:12 → PH3B 08:18
PROVIDERS: ADMIT Hospitalist; ATTEND Hospitalist
DX: A41.9 Sepsis, unspecified organism (principal); I10 Essential (primary) hypertension; N30.91 Cystitis, unspecified with hematuria; F41.9 Anxiety disorder, unspecified; E03.9 Hypothyroidism, unspecified; F32.9 Major depressive disorder, single episode, unspecified
CPT/HCPCS: 74177; 80048; 81001; 83605; 83735; 85025; 87040; 87077; 87086; 87186; 96361; 96365; J1956; J2543; J7030; Q9967

== ENCOUNTER 2017-09-06 16:47 | Emergency (ER) | payer MEDICARE ==
[~2017-09-06] VITALS: Ht 157.5 cm; Wt 82.8 kg
[~2017-09-06 16:47] MED LIST: ASPI81CH6 CHEW; CIPR500T2 PO; LEVO25TA4 PO; LISI10TA3 PO; PAXI40TA PO; XANA1TAB2 PO
[2017-09-06 17:07] VITALS: BP 148/71; PULSE 95; RESP 18; TEMP 98.1; O2SAT 97
[2017-09-06] MEDS ORDERED: PAXI30TA7 PO (17:24)
--- NOTE | 2017-09-06 17:49 | PD ---
HPI Chief Complaint: Lump, Cyst, Hernia Time Seen by Provider: 17:21 Travel History International Travel<30 days: No Contact w/Intl Traveler<30days: No Traveled to known affect area: No History of Present Illness HPI This patient came to the ER because she is had a sensation that there is a lump in her throat over the last 2-3 months. She has an ear nose throat appointment next week and has signed consent for laryngoscopy according to the . She is not having acute pain. There is no difficulty swallowing breath. Symptoms severity is mild. No alleviating factors. PFSH Past Medical History Arthritis: No Anxiety: Yes Depression: Yes Heart Rhythm Problems: No Cancer: No Cardiovascular Problems: No High Cholesterol: No Chest Pain: No Congestive Heart Failure: No Cerebrovascular Accident: No Diabetes: No Diminished Hearing: No Genitourinary: Yes Hypertension: Yes Kidney Stones: Yes Musculoskeletal: No Neurologic: No Reproductive: No Respiratory: No Immunizations Current: Yes Migraines: No Seizures: No Thyroid Disease: Yes Menopausal: Yes Past Surgical History Abdominal Surgery: Yes (lap choley) Cardiac Surgery: No Ear Surgery: No Endocrine Surgery: No Eye Surgery: No Genitourinary Surgery: Yes (enlarged ureter) Gynecologic Surgery: No Oral Surgery: No Thoracic Surgery: No Other Surgery: Yes Social History Alcohol Use: Yes Tobacco Use: No Substance Use: No Allergies-Medications (Allergen,Severity, Reaction): Coded Allergies: No Known Allergies (Unverified Adverse Reaction, Unknown, 09/06/17) Reported Meds & Prescriptions Reported Meds & Active Scripts Active Reported Paxil (Paroxetine HCl) 30 Mg Tab 50 Mg PO DAILY Xanax (Alprazolam) 1 Mg Tab 1 Mg PO Q6H PRN Aspirin Low Dose (Aspirin) 81 Mg Chew 81 Mg CHEW DAILY Lisinopril 10 Mg Tab 10 Mg PO DAILY Levothyroxine (Levothyroxine Sodium) 25 Mcg Tab 25 Mcg PO DAILY Review of Systems General / Constitutional: No: Fever HENT: No: Headaches Cardiovascular: No: Chest Pain or Discomfort Physical Exam Narrative NECK: Symmetrical appearance, midline trachea. No mass or crepitus. Thyroid without enlargement, tenderness, or mass. No visible swelling or bruising or asymmetry Oral cavity is clear with midline uvula and no swelling of lips or tongue No lesions seen SKIN: Focused skin assessment reveals no rash or ulcers. Skin is warm and dry. Palpation shows no induration or nodules. RESPIRATORY: Respiratory effort unlabored, no retractions or use of accessory muscles. Breath sounds are clear and symmetric. Data Data Last Documented VS Vital Signs Date Time Temp Pulse Resp B/P (MAP) Pulse Ox O2 Delivery O2 Flow Rate FiO2 09/06/17 17:07 98.1 95 18 148/71 (96) 97 MDM Medical Decision Making Medical Screen Exam Complete: Yes Emergency Medical Condition: Yes Medical Record Reviewed: Yes Differential Diagnosis Globus sensation, laryngeal polyp, oropharynx cancer Narrative Course I have reviewed the patient's electronic medical record. Patient has an atypical presentation of chronic sensation of lump in the throat. She is due for laryngoscopy next week. They came into the ER to see if that could be done today. No indication to do it emergently. She is in no distress. They got frustrated that this is not happening now. Tried to explain there is no practically to arrange that now. They're going to call the ENT physician tomorrow and see if that appointment can be moved up. Diagnosis Primary Impression: Globus sensation Referrals: Sabiha Ashton MD (PCP) call for appointment Patient Instructions: General Instructions Departure Forms: Tests/Procedures Disposition: DISCHARGE HOME Condition: Stable Rock Pfeiffer MD Sep 06, 2017 17:49
== END 2017-09-06 18:01 | disposition home or self-care (01) ==
LOC: PHEFT 16:47
DX: F45.8 Other somatoform disorders (principal); I10 Essential (primary) hypertension; F32.9 Major depressive disorder, single episode, unspecified; Z79.899 Other long term (current) drug therapy
CPT/HCPCS: 99281

== ENCOUNTER 2017-11-15 15:44 | Emergency (ER) | payer MEDICARE ==
[~2017-11-15 15:44] MED LIST changes: -CIPR500T2 PO; +PAXI30TA7 PO; -PAXI40TA PO
[2017-11-15 16:00] VITALS: BP 178/87; PULSE 109; RESP 18; TEMP 97.9; O2SAT 99
--- NOTE | 2017-11-15 17:21 | PD ---
HPI Chief Complaint: Fall Time Seen by Provider: 17:05 Travel History International Travel<30 days: No Contact w/Intl Traveler<30days: No Traveled to known affect area: No History of Present Illness HPI 72yo F with PMH of HTN, hypothyroidism and anxiety presents to the ED with bilateral lower back pain after trip and fall today. Pt said she trip over her shoe and fell backwards hitting her lower back at 1:30pm. Said she has not try to get up and walk. Denies any head trauma, LOC, chest pain, sob, dizziness, n/ v, abdominal pain, focal weakness or numbness, urinary complaints. Pain is worst with movement. PFSH Past Medical History Arthritis: No Anxiety: Yes Depression: Yes Heart Rhythm Problems: No Cancer: No Cardiovascular Problems: No High Cholesterol: No Chest Pain: No Congestive Heart Failure: No Cerebrovascular Accident: No Diabetes: No Diminished Hearing: No Genitourinary: Yes Hypertension: Yes Kidney Stones: Yes Musculoskeletal: No Neurologic: No Reproductive: No Respiratory: No Immunizations Current: Yes Migraines: No Seizures: No Thyroid Disease: Yes ?: Not Menopausal: Yes Past Surgical History Abdominal Surgery: Yes (lap choley) Cardiac Surgery: No Ear Surgery: No Endocrine Surgery: No Eye Surgery: No Genitourinary Surgery: Yes (enlarged ureter) Gynecologic Surgery: No Oral Surgery: No Thoracic Surgery: No Other Surgery: Yes Social History Alcohol Use: Yes Tobacco Use: No Substance Use: No Allergies-Medications (Allergen,Severity, Reaction): Coded Allergies: No Known Allergies (Unverified Adverse Reaction, Unknown, 11/15/17) Reported Meds & Prescriptions Reported Meds & Active Scripts Active Hydrocodone-Acetaminophen 5-325 mg Tab 1 Tab PO Q6H PRN Reported Paxil (Paroxetine HCl) 30 Mg Tab 50 Mg PO DAILY Xanax (Alprazolam) 1 Mg Tab 1 Mg PO Q6H PRN Aspirin Low Dose (Aspirin) 81 Mg Chew 81 Mg CHEW DAILY Lisinopril 10 Mg Tab 10 Mg PO DAILY Levothyroxine (Levothyroxine Sodium) 25 Mcg Tab 25 Mcg PO DAILY Review of Systems Except as stated in HPI: all other systems reviewed are Neg Physical Exam Narrative GENERAL: 72yo F in mild distress. SKIN: Focused skin assessment warm/dry. HEAD: Atraumatic. Normocephalic. EYES: Pupils equal and round. No scleral icterus. No injection or drainage. ENT: No nasal bleeding or discharge. Mucous membranes pink and moist. NECK: No midline cervical spine ttp. CARDIOVASCULAR: Regular rate and rhythm. No murmur appreciated. RESPIRATORY: No accessory muscle use. Clear to auscultation. Breath sounds equal bilaterally. GASTROINTESTINAL: Abdomen soft, non-tender, nondistended. No rebound tenderness or guarding. BACK: No midline ttp thoracic or lumbar spine ttp. +Paraspinal ttp bilaterally L4-L5. MUSCULOSKELETAL: No obvious deformities. No clubbing. No cyanosis. No edema. NEUROLOGICAL: Awake and alert. No obvious cranial nerve deficits. Motor grossly within normal limits in all extremities. Sensation equal and intact in all extremities. Normal speech. PSYCHIATRIC: Anxious. Data Data Last Documented VS Vital Signs Date Time Temp Pulse Resp B/P (MAP) Pulse Ox O2 Delivery O2 Flow Rate FiO2 11/15/17 20:46 100 16 152/69 (96) 98 Room Air 11/15/17 16:00 97.9 Orders Orders Pelvis, Ap Only (Routine) (11/15/17 ) Spine, Lumbar - Ltd (Ap & Lat) (11/15/17 ) Diazepam (Valium) (11/15/17 17:30) Ketorolac Inj (Toradol Inj) (11/15/17 17:30) TLSO (11/15/17 ) Acetamin-Hydrocod 325-5 Mg (Currie 5-325 (11/15/17 19:00) Hydralazine Inj (Apresoline Inj) (11/15/17 20:00) MDM Medical Decision Making Medical Screen Exam Complete: Yes Emergency Medical Condition: Yes Differential Diagnosis Musculoskeletal pain vs. fracture vs. contusion Narrative Course 72yo F here with lower back pain after mechanical fall today. No head trauma. No focal neurologic deficits. Pt is very anxious appearing. Xray LS showed compression fracture injury along superior endplate of L1. TLSO brace place. Instructed pt to follow up with neurosurgery as outpatient. Xray pelvis normal. Pt given valium, toradol but still with pain so given lortab. Said that helped with the pain and pt able to ambulate now. Return precautions given. Upon discharge, pt's blood pressure was elevated and pt denies any headache, visual changes, chest pain, sob, n/v, abdominal pain, focal weakness or numbness. Pt has history of HTN and takes losartan and said she took it today. She is insisting on IV blood pressure medication and after in depth discussion , ordered hydralazine 10mg IV. Repeat BP 152/69. Pt said she feels better now and wants to go home. Return precautions given. Diagnosis Primary Impression: Compression fracture of L1 lumbar vertebra Qualified Codes: S32.010A - Wedge compression fracture of first lumbar vertebra, initial encounter for closed fracture Referrals: Serg Alvarenga MD call for appointment Compression fracture injury along superior endplate of L1. Patient Instructions: General Instructions Departure Forms: Tests/Procedures Additional Instructions: Please follow up with neurosurgery at the earliest appointment possible. Return to the ED if symptoms worsen. Med/Other Pt SpecificInfo: Prescription(s) given Scripts Hydrocodone-Acetaminophen (Hydrocodone-Acetaminophen) 5-325 mg Tab 1 TAB PO Q6H Y for PAIN, #6 TAB 0 Refills Prov: Kristen Borrego DO 11/15/17 Disposition: 01 DISCHARGE HOME Condition: Stable Kristen Borrego DO Nov 15, 2017 17:21
[2017-11-15] MEDS ORDERED: KETOROLAC TROMETHAMINE 60 MG/2 ML (IM) VIAL IM ONE (17:30)
[2017-11-15] MEDS ORDERED: DIAZEPAM 5 MG TAB PO ONE (17:30)
--- NOTE | 2017-11-15 17:58 | RADRPT ---
EXAM DATE/TIME: 11/15/2017 17:32 [facility] COMPARISON: No previous studies available for comparison. INDICATIONS : Pelvic pain after fall. MEDICAL HISTORY : Hyperparathyroidism. SURGICAL HISTORY : Cholecystectomy. ENCOUNTER: Initial ACUITY: 1 day PAIN SCORE: 10/10 LOCATION: pelvis FINDINGS: A single frontal view of the pelvis demonstrates no evidence of fracture. The bony pelvic ring is in tact. Bony mineralization is normal. The soft tissues are intact. There are some mild degenerative changes of both hips. There is good alignment of the SI joints and pubic symphysis. CONCLUSION: Normal examination for a patient of this age. Joes C Ding MD on November 15, 2017 at 17:55 Board Certified Radiologist. This report was verified electronically.
--- NOTE | 2017-11-15 18:01 | RADRPT ---
EXAM DATE/TIME: 11/15/2017 17:33 [facility] COMPARISON: No previous studies available for comparison. INDICATIONS : Lower back pain after fall. MEDICAL HISTORY : Hyperparathyroidism. SURGICAL HISTORY : Cholecystectomy. ENCOUNTER: Initial ACUITY: 1 day PAIN SCORE: 10/10 LOCATION: lumbar FINDINGS: Two view examination was performed. There are five non-rib bearing vertebral bodies. There appears t o be some compression along the superior endplate of L1. The rest of the lumbar vertebral bodies are grossly intact. No spondylolisthesis. There is mild disc space narrowing L4-5. There is good alignmen t of the SI joints. CONCLUSION: Compression fracture injury along the superior endplate of L1. Jose C Ding MD on November 15, 2017 at 17:58 Board Certified Radiologist. This report was verified electronically.
[2017-11-15] MEDS ORDERED: ACETAMINOPHEN/HYDROcodone 325 MG/5 MG TAB PO ONE (19:00)
[2017-11-15 19:43] VITALS: BP 184/104; PULSE 134; PULSE 99; RESP 18; O2SAT 96
[2017-11-15] MEDS ORDERED: HYDR-3516 PO (19:44)
[2017-11-15] MEDS ORDERED: hydrALAZINE HCL 20 MG/ML VIAL IV PUSH ONE (20:00)
[2017-11-15 20:46] VITALS: BP 152/69; PULSE 100; RESP 16; O2SAT 98
== END 2017-11-15 21:11 | disposition home or self-care (01) ==
LOC: NEDAMB 15:44 → NEPD 21:11
DX: S32.010A Wedge compression fracture of first lumbar vertebra, initial encounter for closed fracture (principal); E03.9 Hypothyroidism, unspecified; I10 Essential (primary) hypertension; W01.0XXA Fall on same level from slipping, tripping and stumbling without subsequent striking against object, initial encounter
CPT/HCPCS: 72100; 72170; 96372; 96374; 99284; J0360; J1885; L0200; L0484

== ENCOUNTER 2017-11-17 18:35 | Emergency (ER) | payer MEDICARE ==
[~2017-11-17 18:35] MED LIST changes: +HYDR-3516 PO
[2017-11-17 18:40] VITALS: BP 181/82; PULSE 93; RESP 18; TEMP 98.4; O2SAT 96
[2017-11-17] MEDS ORDERED: KETOROLAC TROMETHAMINE 60 MG/2 ML (IM) VIAL IM ONE (19:30)
[2017-11-17] MEDS ORDERED: NORC5TAB PO (19:59)
--- NOTE | 2017-11-17 19:59 | PD ---
HPI Chief Complaint: Back/ Neck Pain or Injury Time Seen by Provider: 19:13 Travel History International Travel<30 days: No Contact w/Intl Traveler<30days: No Traveled to known affect area: No History of Present Illness HPI 72-year-old female here for low back pain. Patient was diagnosed with compression fracture several days ago. She was discharged home with a perception for [place]. Patient reports she is not taking the [place] but she does not want to take opiates. She denies reinjury or fall. She presents today for continued back pain. She denies paresthesia or weakness of the extremities. No incontinence. She has pain with movement. Pain is relieved with rest. Symptom severity is moderate. PFSH Past Medical History Arthritis: No Anxiety: Yes Depression: Yes Heart Rhythm Problems: No Cancer: No Cardiovascular Problems: No High Cholesterol: No Chest Pain: No Congestive Heart Failure: No Cerebrovascular Accident: No Diabetes: No Diminished Hearing: No Genitourinary: Yes Hypertension: Yes Kidney Stones: Yes Musculoskeletal: No Neurologic: No Reproductive: No Respiratory: No Immunizations Current: Yes Migraines: No Seizures: No Thyroid Disease: Yes ?: Not Menopausal: Yes Past Surgical History Abdominal Surgery: Yes (lap choley) Cardiac Surgery: No Ear Surgery: No Endocrine Surgery: No Eye Surgery: No Genitourinary Surgery: Yes (enlarged ureter) Gynecologic Surgery: No Oral Surgery: No Thoracic Surgery: No Other Surgery: Yes Social History Alcohol Use: Yes Tobacco Use: No Substance Use: No Allergies-Medications (Allergen,Severity, Reaction): Coded Allergies: No Known Allergies (Unverified Adverse Reaction, Unknown, 11/15/17) Reported Meds & Prescriptions Reported Meds & Active Scripts Active [place] (Hydrocodone-Acetaminophen) 5 Mg-325 Mg Tab 1 Tab PO Q6H PRN Hydrocodone-Acetaminophen 5-325 mg Tab 1 Tab PO Q6H PRN Reported Paxil (Paroxetine HCl) 30 Mg Tab 50 Mg PO DAILY Xanax (Alprazolam) 1 Mg Tab 1 Mg PO Q6H PRN Aspirin Low Dose (Aspirin) 81 Mg Chew 81 Mg CHEW DAILY Lisinopril 10 Mg Tab 10 Mg PO DAILY Levothyroxine (Levothyroxine Sodium) 25 Mcg Tab 25 Mcg PO DAILY Review of Systems Except as stated in HPI: all other systems reviewed are Neg General / Constitutional: No: Fever Eyes: No: Visual changes HENT: No: Headaches Cardiovascular: No: Chest Pain or Discomfort Respiratory: No: Shortness of Breath Gastrointestinal: No: Abdominal Pain Genitourinary: No: Dysuria Musculoskeletal: Positive: Pain (back pain) Skin: No Rash Physical Exam Narrative GENERAL: Alert and well-appearing 72-year-old female. No distress. SKIN: Warm and dry. HEAD: Normocephalic. EYES: No scleral icterus. No injection or drainage. NECK: Supple CARDIOVASCULAR: Regular rate and rhythm RESPIRATORY: Breath sounds equal bilaterally. No accessory muscle use. GASTROINTESTINAL: Abdomen soft, non-tender, nondistended. MUSCULOSKELETAL: No cyanosis, or edema. 5/5 strength in lower extremities. Normal sensation. Patient is able to flex and extend both great toes. 2+ distal pulses BACK: + Tenderness of the lumbar spine. without obvious deformity. No CVA tenderness. Data Data Last Documented VS Vital Signs Date Time Temp Pulse Resp B/P (MAP) Pulse Ox O2 Delivery O2 Flow Rate FiO2 11/17/17 18:40 98.4 93 18 181/82 (115) 96 Orders Orders Ketorolac Inj (Toradol Inj) (11/17/17 19:30) Ed Discharge Order (11/17/17 19:59) MDM Medical Decision Making Medical Screen Exam Complete: Yes Emergency Medical Condition: Yes Differential Diagnosis L1 compression fracture, medication noncompliance, other Narrative Course 72-year-old female here for low back pain. Patient was diagnosed with compression fracture several days ago. She was discharged home with a perception for [place]. Patient reports she is not taking the [place] but she does not want to take opiates. She presents today for continued back pain. She denies paresthesia or weakness of the extremities. No incontinence. She has pain with movement. Pain is relieved with rest. She was offered pain medication in the ER and declined. She did agree to take a shot of Toradol and had moderate symptom improvement. She is able to get up from the bed and ambulate to the restroom. She will be given a few more days applied [place] if needed. She was instructed take 800 mg ibuprofen every 6 hours as needed for pain. Diagnosis Primary Impression: Compression fracture of L1 lumbar vertebra Qualified Codes: S32.010D - Wedge compression fracture of first lumbar vertebra, subsequent encounter for fracture with routine healing Referrals: Orthopaedic Surgeon Primary Care Physician Additional Instructions: Take ibuprofen 800 mg every 6 hours as needed for pain. Take hydrocodone as needed for severe pain. Follow-up with her primary doctor. Follow-up with orthopedic doctor Scripts Hydrocodone-Acetaminophen ([place]) 5 Mg-325 Mg Tab 1 TAB PO Q6H Y for PAIN, #12 TAB 0 Refills Prov: Emely Coburn 11/17/17 Disposition: 01 DISCHARGE HOME Condition: Stable Emely Coburn Nov 17, 2017 19:59
== END 2017-11-17 20:28 | disposition home or self-care (01) ==
LOC: PHEFT 18:35
DX: S32.010A Wedge compression fracture of first lumbar vertebra, initial encounter for closed fracture (principal); F32.9 Major depressive disorder, single episode, unspecified; I10 Essential (primary) hypertension; X58.XXXA Exposure to other specified factors, initial encounter
CPT/HCPCS: 96372; 99283; J1885

== ENCOUNTER 2017-11-29 09:55 | Inpatient (IN) | payer MEDICARE ==
[2017-11-29] VITALS (9 sets, daily range): BP systolic 148–196; BP diastolic 76–96; PULSE 80–103; RESP 18–20; TEMP 97.5–97.8; O2SAT 94–98
[~2017-11-29 09:55] MED LIST changes: +NORC5TAB PO
[2017-11-29] MEDS ORDERED: LOSA25TA PO (10:02)
[2017-11-29] MEDS ORDERED: SODIUM CHLOR 0.9% 1000 ML INJ 1,000 ML IV ONE (10:15)
[2017-11-29 10:21] LABS: AUTOMATED NEUTROPHIL # 7.4 TH/MM3 (1.8-7.7); BASOPHIL # 0.1 TH/MM3 (0-0.2); BASOPHIL % 0.8 % (0.0-2.0); EOSINOPHIL # 0.1 TH/MM3 (0-0.4); EOSINOPHIL % 1.1 % (0.0-4.0); HEMOGLOBIN 14.1 GM/DL (11.6-15.3); LYMPH % 18.4 % (9.0-44.0); LYMPHOCYTE # 1.8 TH/MM3 (1.0-4.8); MEAN CELL VOLUME 88.2 FL (80.0-100.0); MEAN CORPUSCULAR HGB CONC 32.9 % (32.0-36.0); MEAN PLATELET VOLUME 9.4 FL (7.0-11.0); MONO % 4.4 % (0.0-8.0); MONOCYTE # 0.4 TH/MM3 (0-0.9); NEUT % 75.3 % (16.0-70.0); PLATELET COUNT 249 TH/MM3 (150-450); RED BLOOD COUNT 4.87 MIL/MM3 (4.00-5.30); RED CELL DISTRIBUTION WIDTH 13.1 % (11.6-17.2); WHITE BLOOD COUNT 9.8 TH/MM3 (4.0-11.0)
[2017-11-29 10:31] LABS: CHLORIDE 102 MEQ/L (98-107); SODIUM (NA) 136 MEQ/L (136-145)
[2017-11-29 10:34] LABS: ALBUMIN 3.4 GM/DL (3.4-5.0); BICARBONATE 26.3 MEQ/L (21.0-32.0); BLOOD UREA NITROGEN 13 MG/DL (7-18); CALCIUM 8.7 MG/DL (8.5-10.1); GLUCOSE,RANDOM 105 MG/DL (74-106)
--- NOTE | 2017-11-29 10:34 | PD ---
HPI Chief Complaint: Complaint Time Seen by Provider: 10:02 Travel History International Travel<30 days: No Contact w/Intl Traveler<30days: No Traveled to known affect area: No History of Present Illness HPI This 72-year-old female is complaining of back pain. She says the pain she is having is quite severe. It started on November 15. She had a fall on that day. She was seen in the emergency department and had x-rays done which showed that she had a compression fracture at L1. Is given prescription for Lortab and she was released. She came back on the complaining of pain. On that day she was given Toradol which seemed to help. She has not been doing well at home. She says the pain is unbearable when she tries to stand and her who is disabled himself is had to carry her around. She denies numbness or tingling in the legs. She says that she has had a loss of appetite. Initially she told me she had not urinated for 4 days later said that she was urinating but that it was difficult for her. She said when she tried to urinate sometimes urine came out and sometimes it didn't. She is not aware of any numbness or tingling. It is now been 2 weeks since the fall and she says the pain is no better now than it was initially. The pain is aggravated by sitting and by standing. She says the pain is unbearable. She is not having abdominal pain. There is been no vomiting. She does say that she has agoraphobia. PFSH Past Medical History Arthritis: No Anxiety: Yes Depression: Yes Heart Rhythm Problems: No Cancer: No Cardiovascular Problems: No High Cholesterol: No Chest Pain: No Congestive Heart Failure: No Cerebrovascular Accident: No Diabetes: No Diminished Hearing: No Genitourinary: Yes Hypertension: Yes Kidney Stones: Yes Musculoskeletal: No Neurologic: No Reproductive: No Respiratory: No Immunizations Current: Yes Migraines: No Seizures: No Thyroid Disease: Yes Menopausal: Yes Past Surgical History Abdominal Surgery: Yes (lap choley) Cardiac Surgery: No Ear Surgery: No Endocrine Surgery: No Eye Surgery: No Genitourinary Surgery: Yes (enlarged ureter) Gynecologic Surgery: No Oral Surgery: No Thoracic Surgery: No Other Surgery: Yes Social History Alcohol Use: Yes Tobacco Use: No Substance Use: No Allergies-Medications (Allergen,Severity, Reaction): Coded Allergies: No Known Allergies (Unverified Adverse Reaction, Unknown, 11/29/17) Reported Meds & Prescriptions Reported Meds & Active Scripts Active [place] (Hydrocodone-Acetaminophen) 5 Mg-325 Mg Tab 1 Tab PO Q6H PRN Reported Losartan (Losartan Potassium) 25 Mg Tab Unknown Dose PO DAILY Paxil (Paroxetine HCl) 30 Mg Tab 50 Mg PO DAILY Xanax (Alprazolam) 1 Mg Tab 1 Mg PO Q6H PRN Aspirin Low Dose (Aspirin) 81 Mg Chew 81 Mg CHEW DAILY Levothyroxine (Levothyroxine Sodium) 25 Mcg Tab 25 Mcg PO DAILY Review of Systems General / Constitutional: No: Fever, Chills Eyes: No: Diploplia, Blurred Vision HENT: No: Headaches, Vertigo Cardiovascular: No: Chest Pain or Discomfort, Palpitations Respiratory: No: Cough, Shortness of Breath Gastrointestinal: Positive: Loss of Appetite Genitourinary: Positive: Urgency, Frequency, Dysuria, Hesitancy Musculoskeletal: Positive: Arthralgias, Pain, No: Myalgias Skin: No Rash, No Itching Neurologic: No: Weakness Psychiatric: Positive: Anxiety Endocrine: No: Cold Intolerance Hematologic/Lymphatic: No: Easy Bruising Physical Exam Narrative GENERAL: Well-developed female. She complains of severe pain with movement SKIN: Focused skin assessment warm/dry. HEAD: Atraumatic. Normocephalic. EYES: Pupils equal and round. No scleral icterus. No injection or drainage. ENT: No nasal bleeding or discharge. Mucous membranes pink and moist. NECK: Trachea midline. No JVD. CARDIOVASCULAR: Regular rate and rhythm. No murmur appreciated. RESPIRATORY: No accessory muscle use. Clear to auscultation. Breath sounds equal bilaterally. GASTROINTESTINAL: Abdomen soft, non-tender, nondistended. Hepatic and splenic margins not palpable. MUSCULOSKELETAL: No obvious deformities. No clubbing. No cyanosis. No edema. NEUROLOGICAL: Awake and alert. No obvious cranial nerve deficits. Motor grossly within normal limits. Normal speech. Patient has good strength in plantar and dorsiflexion of the feet. Sensation of the feet and legs is intact. Perianal sensation was checked and is intact. [employer]ist are equal PSYCHIATRIC: Patient does have significant anxiety; insight and judgment normal. Data Data Last Documented VS Vital Signs Date Time Temp Pulse Resp B/P (MAP) Pulse Ox O2 Delivery O2 Flow Rate FiO2 11/29/17 11:32 83 20 173/91 (118) 97 11/29/17 09:57 97.8 Orders Orders Complete Blood Count With Diff (11/29/17 10:02) Comprehensive Metabolic Panel (11/29/17 10:02) Prothrombin Time / Inr (Pt) (11/29/17 10:02) Act Partial Throm Time (Ptt) (11/29/17 10:02) Urinalysis - C+S If Indicated (11/29/17 10:02) Urinary Catheter Insert/Apply (11/29/17 10:02) Sodium Chlor 0.9% 1000 Ml Inj (Ns 1000 M (11/29/17 10:15) Ct Thor Spine W/O Contrast (11/29/17 10:14) Ct Lumb Spine W/O Contrast (11/29/17 10:14) Labs Laboratory Tests Test 11/29/17 10:15 11/29/17 10:30 White Blood Count 9.8 TH/MM3 Red Blood Count 4.87 MIL/MM3 Hemoglobin 14.1 GM/DL Hematocrit 43.0 % Mean Corpuscular Volume 88.2 FL Mean Corpuscular Hemoglobin 29.0 PG Mean Corpuscular Hemoglobin Concent 32.9 % Red Cell Distribution Width 13.1 % Platelet Count 249 TH/MM3 Mean Platelet Volume 9.4 FL Neutrophils (%) (Auto) 75.3 % Lymphocytes (%) (Auto) 18.4 % Monocytes (%) (Auto) 4.4 % Eosinophils (%) (Auto) 1.1 % Basophils (%) (Auto) 0.8 % Neutrophils # (Auto) 7.4 TH/MM3 Lymphocytes # (Auto) 1.8 TH/MM3 Monocytes # (Auto) 0.4 TH/MM3 Eosinophils # (Auto) 0.1 TH/MM3 Basophils # (Auto) 0.1 TH/MM3 CBC Comment DIFF FINAL Differential Comment Prothrombin Time 10.4 SEC Prothromb Time International Ratio 1.0 RATIO Activated Partial Thromboplast Time 22.2 SEC Blood Urea Nitrogen 13 MG/DL Creatinine 0.81 MG/DL Random Glucose 105 MG/DL Total Protein 7.2 GM/DL Albumin 3.4 GM/DL Calcium Level 8.7 MG/DL Alkaline Phosphatase 132 U/L Aspartate Amino Transf (AST/SGOT) 21 U/L Alanine Aminotransferase (ALT/SGPT) 21 U/L Total Bilirubin 0.4 MG/DL Sodium Level 136 MEQ/L Potassium Level 3.8 MEQ/L Chloride Level 102 MEQ/L Carbon Dioxide Level 26.3 MEQ/L Anion Gap 8 MEQ/L Estimat Glomerular Filtration Rate 70 ML/MIN Urine Collection Type CLEAN CATCH Urine Color YELLOW Urine Turbidity CLEAR Urine pH 6.5 Urine Specific [place] 1.014 Urine Protein NEG mg/dL Urine Glucose (UA) NEG mg/dL Urine Ketones NEG mg/dL Urine Occult Blood TRACE Urine Nitrite NEG Urine Bilirubin NEG Urine Leukocyte Esterase NEG Urine WBC 0-2 /hpf Urine Squamous Epithelial Cells 0-5 /hpf Microscopic Urinalysis Comment CULT NOT INDICATED MDM Medical Decision Making Medical Screen Exam Complete: Yes Emergency Medical Condition: Yes Medical Record Reviewed: Yes Differential Diagnosis Differential includes lumbar fracture, cord compression, dehydration, intractable pain Narrative Course I advised the patient that I would like to perform an MRI of her thoracic and lumbar spines. Patient adamantly refuses MRI and says she can only tolerate an open MRI because of severe agoraphobia. Her initial diagnosis was based on plain films of the lumbar spine and I will order a CT of the thoracic and lumbar spines. CT shows L1 superior endplate compression with sclerosis and thin fracture lines and retropulsed posterior superior cortex indenting on the thecal sac. I discussed the case with Dr. Mosher. Patient is having intractable pain. She'll be admitted to the main hospital with consult to by Dr. Mosher Diagnosis Primary Impression: Fracture of L1 vertebra Additional Impression: Intractable pain Admitting Information Admitting Physician Requests: Admit Brice Blood MD Nov 29, 2017 10:34
[2017-11-29 10:35] LABS: PROTHROMBIN TIME - PATIENT 10.4 SEC (9.8-11.6)
[2017-11-29 10:37] LABS: ALT (GPT) 21 U/L (10-53); AST (GOT) 21 U/L (15-37); CREATININE 0.81 MG/DL (0.50-1.00); GLOMERULAR FILTRATION RATE 70 ML/MIN (>89)
[2017-11-29 10:38] LABS: BILIRUBIN, URINE NEG (NEG); BLOOD, URINE TRACE (NEG); GLUCOSE,URINE NEG (NEG); KETONE, URINE NEG (NEG); NITRITE,URINE NEG (NEG); PH, URINE 6.5 (5.0-8.5); URINE LEUKOCYTE ESTERASE NEG (NEG)
[2017-11-29 10:39] LABS: TOTAL BILIRUBIN ADULT 0.4 MG/DL (0.2-1.0); TOTAL PROTEIN 7.2 GM/DL (6.4-8.2)
[2017-11-29 10:40] LABS: ALKALINE PHOSPHATASE 132 U/L (45-117)
[2017-11-29 10:46] LABS: URINE COLOR YELLOW (YELLW/STRAW)
[2017-11-29 10:49] LABS: SQUAMOUS EPITHELIAL CELL URINE 0-5 /hpf (0-5); WBC, URINE 0-2 /hpf (0-5)
--- NOTE | 2017-11-29 12:07 | RADRPT ---
EXAM DATE/TIME: 11/29/2017 10:55 [facility] COMPARISON: No previous studies available for comparison. INDICATIONS : Patient fell two weeks ago. Still has pain and difficulty urinating. Abnormal xray. Evaluate for c ord compression. RADIATION DOSE: 43.13 CTDIvol (mGy) ; Combined studies - Thoracic Spine/Lumbar Spine MEDICAL HISTORY : Hypertension. SURGICAL HISTORY : Cholecystectomy. Shoulder surgery. Enlarged ureter surgery. ENCOUNTER: Initial ACUITY: 2 weeks PAIN SCALE: 9/10 LOCATION: spine TECHNIQUE: Volumetric scanning of the lumbar spine was performed. Multiplanar reconstructions in the sagittal, coronal and oblique axial planes were performed. Using automated exposure control and adjustment of the mA and/or kV according to patient size, radiation dose was kept as low as reasonably achievable t o obtain optimal diagnostic quality images. DICOM format image data is available electronically for review and comparison. FINDINGS: There is a 60% compression deformity of the superior endplate of the L1 vertebral body with sclerosis of the compressed portion and mild concentric extension and about the deformity which does causing i ndentation on the ventral thecal sac measuring 6 mm. On the axial images, there is an thin fracture lucency is horizontal to the mid vertebral body. Questionable hairline fracture through the left ped icle is seen on axial images. The remainder of the vertebral bodies of the lumbar spine are intact. No evidence of spondylolisthesis. Moderate hypertrophic changes in posterior elements L4-S1 without evidence of pars defect. T12-L1: Flattening of the ventral margin of the thecal side due to the retropulsed posterior cortex. AP dime nsion of the thecal sac measures 1.3 cm. The neural foramina are patent. L1-L2: The thecal sac has a normal diameter. No evidence of disc bulge or protrusion. The neural foramina are patent bilaterally. L2-L3: The thecal sac has a normal diameter. No evidence of disc bulge or protrusion. The neural foramina are patent bilaterally. L3-L4: Minimal bulging of the disc flattens the ventral thecal sac. The neural foramen remain patent. L4-L5: Broad-based bulging of the disc flattens the ventral to the thecal sac. There is bilateral facet rosalee nt hypertrophy and vacuum phenomenon is seen adjacent to the left facet joint indicating significant left sided neural foramina stenosis. L5-S1: The thecal sac has a normal diameter. No evidence of disc bulge or protrusion. The neural foramina are patent bilaterally. CONCLUSION: 1. L1 superior endplate compression fracture with sclerosis and thin fracture lines and retro-pulsed posterior superior cortex indenting on the thecal sac. The neural foramen remain patent. Possible n ondisplaced hairline fracture through the left pedicle. 2. Prominent bilateral facet joint hypertrophy at L4-5, greater in severity in the left side with ass ociated neural foraminal stenosis superimposed upon broad-based bulging of the disc. Augustin Simmons MD on November 29, 2017 at 11:56 Board Certified Radiologist. This report was verified electronically.
--- NOTE | 2017-11-29 12:10 | RADRPT ---
EXAM DATE/TIME: 11/29/2017 10:55 [facility] COMPARISON: No previous studies available for comparison. INDICATIONS : Patient fell two weeks ago. Still has severe pain in spine. RADIATION DOSE: 43.13 CTDIvol (mGy) ; Combined studies - Thoracic Spine/Lumbar Spine MEDICAL HISTORY : Hypertension. SURGICAL HISTORY : Cholecystectomy. Enlarged ureter surgery. Shoulder surgery. ENCOUNTER: Initial ACUITY: 2 weeks PAIN SCALE: 9/10 LOCATION: spine TECHNIQUE: Volumetric scanning of the thoracic spine was performed. Multiplanar reconstructions in the sagittal , coronal and oblique axial planes were performed. Using automated exposure control and adjustment o f the mA and/or kV according to patient size, radiation dose was kept as low as reasonably achievable to obtain optimal diagnostic quality images. DICOM format image data is available electronically f or review and comparison. FINDINGS: There is a 50% compression deformity of the superior endplate of L1 with retropulsed superior cortex indenting on the thecal sac. This is described on lumbar spine CT. The alignment of the thoracic vertebral bodies is maintained in sagittal plane and there is a mild cu rvature of the upper thoracic spine convex towards the right. Moderate degenerative changes with par tially bridging anterior vertebral ossification is present from T6-T10. No thoracic compression defo rmities. CONCLUSION: 1. No evidence of acute compression deformity or spondylolisthesis in the thoracic spine. 2. Superior endplate compression fracture at L1 with posterior protruding superior cortex indenting t he thecal sac. Augustin Simmons MD on November 29, 2017 at 12:06 Board Certified Radiologist. This report was verified electronically.
[2017-11-29] MEDS ORDERED: ALPRAZolam 1 MG TAB PO ONE (12:45)
[2017-11-29] MEDS ORDERED: LORazepam 2 MG/ML VIAL IV PUSH ONE (13:00)
[2017-11-29] MEDS ORDERED: SENNOSIDES 8.6 MG TAB PO PRN (14:00)
[2017-11-29] MEDS ORDERED: ONDANSETRON HCL 4 MG/2 ML VIAL IVP PRN (14:00)
[2017-11-29] MEDS ORDERED: NALOXONE HCL 0.4 MG/ML AMP IV PUSH PRN (14:00)
[2017-11-29] MEDS ORDERED: SODIUM CHLORIDE 0.9% FLUSH 10 ML FLUSH IV FLUSH PRN (14:00)
[2017-11-29] MEDS: SODIUM CHLOR 0.9% 1000 ML INJ 1,000 ML IV SCH (14:37)
[2017-11-29] MEDS: KETOROLAC TROMETHAMINE 30 MG/ML (IVP) VIAL IV PUSH PRN ×2 (14:42→21:30)
[2017-11-29] MEDS ORDERED: FLUMAZENIL 0.5 MG/5 ML VIAL IV PUSH PRN (15:15)
[2017-11-29] MEDS ORDERED: LORazepam 2 MG TAB PO PRN (15:15)
[2017-11-29] MEDS ORDERED: LORazepam 2 MG/ML VIAL IV PUSH PRN ×2 (15:15)
[2017-11-29] MEDS ORDERED: hydrALAZINE HCL 20 MG/ML VIAL IV PUSH ONE (15:15)
--- NOTE | 2017-11-29 15:26 | HHI.HP ---
[facility] Service [facility] Primary Care Physician Sabiha Ashton MD Admission Diagnosis FRACTURE L1, INTRACTABLE PAIN Diagnoses: Chief Complaint: back pain Travel History International Travel<30 Days: No Contact w/Intl Traveler <30 Da: No Traveled to Known Affected Are: No History of Present Illness Patient is a 72-year-old female who fell about 2 weeks ago while getting the trash out. She had pain that became pretty severe so she went to the emergency room. At that time she was told she had a L1 fracture and was prescribed hydrocodone but did not take it because she was free of "side effects". She noted Toradol did improve the pain in the past but there was only a one-time dose. Patient then has had increased pain and had not been able to ambulate. She has not had any urinary trouble and no trouble with numbness in the legs. She has had poor oral intake and reports that she feels quite dehydrated. In fact she does have some clinical picture of dehydration with dry mucous membranes. Her blood pressure however is elevated and her electrolytes appear stable at this time. Patient did have repeat imaging done in thoracic and lumbar spines which do show L1 endplate compression fracture. The patient has been admitted for further evaluation by neurosurgery and for pain control Review of Systems Constitutional: DENIES: Diaphoretic episodes, Fatigue, Fever, Weight gain, Weight loss, Chills, Dizziness, Change in appetite, Night Sweats Endocrine: DENIES: Abnorml menstrual pattern, Heat/cold intolerance, Polydipsia , Polyuria, Polyphagia Eyes: DENIES: Blurred vision, Diplopia, Eye inflammation, Eye pain, Vision loss , Photosensitivity, Double Vision Ears, nose, mouth, throat: DENIES: Tinnitus, Hearing loss, Vertigo, Nasal discharge, Oral lesions, Throat pain, Hoarseness, Ear Pain, Running Nose, Epistaxis, Sinus Pain, Toothache, Odynophagia Respiratory: DENIES: Apneas, Cough, Snoring, Wheezing, Hemoptysis, Sputum production, Shortness of breath Cardiovascular: DENIES: Chest pain, Palpitations, Syncope, Dyspnea on Exertion , PND, Lower Extremity Edema, Orthopnea, Claudication Gastrointestinal: DENIES: Abdominal pain, Black stools, Bloody stools, Constipation, Diarrhea, Nausea, Vomiting, Difficulty Swallowing, Anorexia Genitourinary: DENIES: Abnormal vaginal bleeding, Dysmenorrhea, Dyspareunia, Sexual dysfunction, Urinary frequency, Urinary incontinence, Urgency, Hematuria , Dysuria, Nocturia, Vaginal discharge Musculoskeletal: COMPLAINS OF: Back pain, DENIES: Joint pain, Muscle aches, Stiffness, Joint Swelling, Neck pain Integumentary: DENIES: Abnormal pigmentation, Pruritus, Rash, Nail changes, Breast masses, Breast skin changes, Nipple discharge Hematologic/lymphatic: DENIES: Bruising, Lymphadenopathy Immunologic/allergic: DENIES: Eczema, Urticaria Neurologic: DENIES: Abnormal gait, Headache, Localized weakness, Paresthesias, Seizures, Speech Problems, Tremor, Poor Balance Psychiatric: DENIES: Anxiety, Confusion, Mood changes, Depression, Hallucinations, Agitation, Suicidal Ideation, Homicidal Ideation, Delusions Except as stated in HPI: all other systems reviewed are Neg Past Family Social History Past Medical History Hypertension Anxiety Hypothyroid disorder Past Surgical History Shoulder spur surgery, rotatorcuff surgery, ureteral surgery as a child, cholecystectomy Reported Medications Reviewed in the EMR Allergies: Coded Allergies: No Known Allergies (Unverified Adverse Reaction, Unknown, 11/29/17) Active Ordered Medications Reviewed in the EMR Family History Mother has dementia but is alive, father at 53 from unknown causes Social History No tobacco, drinks wine every evening as well as liquor, has been in detox Physical Exam Vital Signs Vital Signs Date Time Temp Pulse Resp B/P (MAP) Pulse Ox O2 Delivery O2 Flow Rate FiO2 11/29/17 14:58 87 20 182/82 (115) 97 11/29/17 14:01 90 20 190/95 (126) 95 11/29/17 13:18 80 18 193/83 (119) 95 11/29/17 12:33 80 20 196/88 (124) 96 11/29/17 11:32 83 20 173/91 (118) 97 11/29/17 09:57 97.8 82 20 178/96 (123) 94 Physical Exam GENERAL: This is a well-nourished, well-developed patient, in no apparent distress. SKIN: [place], No rashes, ecchymoses or lesions. Cool and dry. HEAD: Atraumatic. Normocephalic. No temporal or scalp tenderness. EYES: Pupils equal round and reactive. Extraocular motions intact. No scleral icterus. No injection or drainage. ENT: Nose without bleeding, purulent drainage or septal hematoma. Throat without erythema, tonsillar hypertrophy or exudate. Uvula midline. Airway patent. NECK: Trachea midline. No JVD or lymphadenopathy. Supple, nontender, no meningeal signs. CARDIOVASCULAR: Regular rate and rhythm without murmurs, gallops, or rubs. RESPIRATORY: Clear to auscultation. Breath sounds equal bilaterally. No wheezes , rales, or rhonchi. GASTROINTESTINAL: Abdomen soft, non-tender, nondistended. No hepato-splenomegaly , or palpable masses. No guarding. MUSCULOSKELETAL: mid back pain, Extremities without clubbing, cyanosis, or edema. No joint tenderness, effusion, or edema noted. No calf tenderness. Negative Homans sign bilaterally. NEUROLOGICAL: Awake and alert. Cranial nerves II through XII intact. Motor and sensory grossly within normal limits. Five out of 5 muscle strength in all muscle groups. Normal speech. Laboratory Laboratory Tests Test 11/29/17 10:15 11/29/17 10:30 White Blood Count 9.8 Red Blood Count 4.87 Hemoglobin 14.1 Hematocrit 43.0 Mean Corpuscular Volume 88.2 Mean Corpuscular Hemoglobin 29.0 Mean Corpuscular Hemoglobin Concent 32.9 Red Cell Distribution Width 13.1 Platelet Count 249 Mean Platelet Volume 9.4 Neutrophils (%) (Auto) 75.3 Lymphocytes (%) (Auto) 18.4 Monocytes (%) (Auto) 4.4 Eosinophils (%) (Auto) 1.1 Basophils (%) (Auto) 0.8 Neutrophils # (Auto) 7.4 Lymphocytes # (Auto) 1.8 Monocytes # (Auto) 0.4 Eosinophils # (Auto) 0.1 Basophils # (Auto) 0.1 CBC Comment DIFF FINAL Differential Comment Prothrombin Time 10.4 Prothromb Time International Ratio 1.0 Activated Partial Thromboplast Time 22.2 Blood Urea Nitrogen 13 Creatinine 0.81 Random Glucose 105 Total Protein 7.2 Albumin 3.4 Calcium Level 8.7 Alkaline Phosphatase 132 Aspartate Amino Transf (AST/SGOT) 21 Alanine Aminotransferase (ALT/SGPT) 21 Total Bilirubin 0.4 Sodium Level 136 Potassium Level 3.8 Chloride Level 102 Carbon Dioxide Level 26.3 Anion Gap 8 Estimat Glomerular Filtration Rate 70 Urine Collection Type CLEAN CATCH Urine Color YELLOW Urine Turbidity CLEAR Urine pH 6.5 Urine Specific [place] 1.014 Urine Protein NEG Urine Glucose (UA) NEG Urine Ketones NEG Urine Occult Blood TRACE Urine Nitrite NEG Urine Bilirubin NEG Urine Leukocyte Esterase NEG Urine WBC 0-2 Urine Squamous Epithelial Cells 0-5 Microscopic Urinalysis Comment CULT NOT INDICATED Result Diagram: 11/29/17 1015 11/29/17 1015 Imaging Last Impressions Thoracic Spine CT 11/29/17 1014 Signed Impressions: Service Date/Time: Wednesday, November 29, 2017 10:55 - CONCLUSION: 1. No evidence of acute compression deformity or spondylolisthesis in the thoracic spine. 2. Superior endplate compression fracture at L1 with posterior protruding superior cortex indenting the thecal sac. Augustin Simmons MD Lumbar Spine CT 11/29/17 1014 Signed Impressions: Service Date/Time: Wednesday, November 29, 2017 10:55 - CONCLUSION: 1. L1 superior endplate compression fracture with sclerosis and thin fracture lines and retro-pulsed posterior superior cortex indenting on the thecal sac. The neural foramen remain patent. Possible nondisplaced hairline fracture through the left pedicle. 2. Prominent bilateral facet joint hypertrophy at L4-5, greater in severity in the left side with associated neural foraminal stenosis superimposed upon broad-based bulging of the disc. MD Anibal Freed VTE Risk Assessment Caprini VTE Risk Assessment: Mod/High Risk (score >= 2) Caprini Risk Assessment Model Point Value = 1 Point Value = 2 Point Value = 3 Point Value = 5 Age 41-60 Minor surgery BMI > 25 kg/m2 Swollen legs Varicose veins or History of unexplained or recurrent spontaneous Oral contraceptives or hormone replacement Sepsis (< 1 month) Serious lung disease, including pneumonia (< 1 month) Abnormal pulmonary function Acute myocardial infarction Congestive heart failure (< 1 month) History of inflammatory bowel disease Medical patient at bed rest Age 61-74 Arthroscopic surgery Major open surgery (> 45 min) Laparoscopic surgery (> 45 min) Malignancy Confined to bed (> 72 hours) Immobilizing plaster cast Central venous access Age >= 75 History of VTE Family history of VTE Factor V Leiden Prothrombin [id number] Lupus anticoagulant Anticardiolipin antibodies Elevated serum homocysteine Heparin-induced thrombocytopenia Other congenital or acquired thrombophilia Stroke (< 1 month) Elective arthroplasty Hip, pelvis, or leg fracture Acute spinal cord injury (< 1 month) Prophylaxis Regimen Total Risk Factor Score Risk Level Prophylaxis Regimen 0-1 Low Early ambulation 2 Moderate Order ONE of the following: *Sequential Compression Device (SCD) *Heparin 5000 units SQ BID 3-4 Higher Order ONE of the following medications: *Heparin 5000 units SQ TID *Enoxaparin/Lovenox 40 mg SQ daily (WT < 150 kg, CrCl > 30 mL/min) *Enoxaparin/Lovenox 30 mg SQ daily (WT < 150 kg, CrCl > 10-29 mL/min) *Enoxaparin/Lovenox 30 mg SQ BID (WT < 150 kg, CrCl > 30 mL/min) AND/OR *Sequential Compression Device (SCD) 5 or more Highest Order ONE of the following medications: *Heparin 5000 units SQ TID (Preferred with Epidurals) *Enoxaparin/Lovenox 40 mg SQ daily (WT < 150 kg, CrCl > 30 mL/min) *Enoxaparin/Lovenox 30 mg SQ daily (WT < 150 kg, CrCl > 10-29 mL/min) *Enoxaparin/Lovenox 30 mg SQ BID (WT < 150 kg, CrCl > 30 mL/min) AND *Sequential Compression Device (SCD) Assessment and Plan Problem List: (1) Fracture of L1 vertebra ICD Code: S32.019A - Unspecified fracture of first lumbar vertebra, initial encounter for closed fracture Status: Acute Plan: Continue with IV nonnarcotic pain regimen Follow-up with neurosurgery for further evaluation (2) Thyroid disease ICD Code: E07.9 - Disorder of thyroid, unspecified Plan: Continue Synthroid (3) HTN (hypertension) ICD Code: I10 - Essential (primary) hypertension Plan: Continue with losartan, control pain Continue with IV blood pressure medicine (4) Anxiety ICD Code: F41.9 - Anxiety disorder, unspecified Plan: Patient does take Paxil and Xanax (5) Dehydration ICD Code: E86.0 - Dehydration Plan: Continue with aggressive IV hydration, follow electrolytes Assessment and Plan transfer [place] [facility] [place] Code Status full code Discussed Condition With patient ERMD Physician Certification 2 Midnight Certification Type: Admission for Inpatient Services Order for Inpatient Services The services are ordered in accordance with Medicare regulations or non- Medicare payer requirements, as applicable. In the case of services not specified as inpatient-only, they are appropriately provided as inpatient services in accordance with the 2-midnight benchmark. Estimated LOS (days): 3 3 days is the estimated time the patient will need to remain in the hospital, assuming treatment plan goals are met and no additional complications. Post-Hospital Plan: Home Sharmila Clifton MD Nov 29, 2017 15:26
[2017-11-29] MEDS: LOSARTAN 25 MG TAB PO SCH (16:18)
--- NOTE | 2017-11-29 17:01 | PD.CONS ---
[facility] Service neurosurg Consult Requested By Dr Cook Reason for Consult Lumbar fracture Primary Care Physician Sabiha Ashton MD History of Present Illness This is a 72-year-old female who fell approximately 2 weeks ago while getting the garbage out. No head injury. No LOC. She developed back pain that became pretty severe so she went to the emergency room. At that time she was diagnosed with a L1 fracture, and was prescribed hydrocodone. She did not take it because she was free of "side effects". She toock Toradol but did improve the pain. She has had increased pain and had not been able to ambulate. She has not had any urinary trouble and no trouble with numbness in the legs. She has had poor oral intake and reports that she feels quite dehydrated. Her blood pressure however was elevated in the ER. She has been admitted for pain control Review of Systems Constitutional: DENIES: Diaphoretic episodes, Fatigue, Fever, Weight gain, Weight loss, Chills, Dizziness, Change in appetite, Night Sweats Endocrine: DENIES: Abnorml menstrual pattern, Heat/cold intolerance, Polydipsia , Polyuria, Polyphagia Eyes: DENIES: Blurred vision, Diplopia, Eye inflammation, Eye pain, Vision loss , Photosensitivity, Double Vision Ears, nose, mouth, throat: DENIES: Tinnitus, Hearing loss, Vertigo, Nasal discharge, Oral lesions, Throat pain, Hoarseness, Ear Pain, Running Nose, Epistaxis, Sinus Pain, Toothache, Odynophagia Respiratory: DENIES: Apneas, Cough, Snoring, Wheezing, Hemoptysis, Sputum production, Shortness of breath Cardiovascular: DENIES: Chest pain, Palpitations, Syncope, Dyspnea on Exertion , PND, Lower Extremity Edema, Orthopnea, Claudication Gastrointestinal: DENIES: Abdominal pain, Black stools, Bloody stools, Constipation, Diarrhea, Nausea, Vomiting, Difficulty Swallowing, Anorexia Genitourinary: DENIES: Abnormal vaginal bleeding, Dysmenorrhea, Dyspareunia, Sexual dysfunction, Urinary frequency, Urinary incontinence, Urgency, Hematuria , Dysuria, Nocturia, Vaginal discharge Musculoskeletal: COMPLAINS OF: Back pain, DENIES: Joint pain, Muscle aches, Stiffness, Joint Swelling, Neck pain Integumentary: DENIES: Abnormal pigmentation, Pruritus, Rash, Nail changes, Breast masses, Breast skin changes, Nipple discharge Hematologic/lymphatic: DENIES: Bruising, Lymphadenopathy Immunologic/allergic: DENIES: Eczema, Urticaria Neurologic: DENIES: Abnormal gait, Headache, Localized weakness, Paresthesias, Seizures, Speech Problems, Tremor, Poor Balance Psychiatric: DENIES: Anxiety, Confusion, Mood changes, Depression, Hallucinations, Agitation, Suicidal Ideation, Homicidal Ideation, Delusions Except as stated in HPI: all other systems reviewed are Neg Past Family Social History Allergies: Uncoded Allergies: NARCOTICS (Allergy, Unknown, 12/05/17) Pt does not like the way it makes her feel. Past Medical History Hypertension Anxiety Hypothyroid disorder Past Surgical History Shoulder spur surgery, rotatorcuff surgery, ureteral surgery as a child, cholecystectomy Active Ordered Medications Current Medications Sodium Chloride 1,000 ml @ 200 mls/hr Q5H ONCE IV Last administered on at 10:42; Start 11/29/17 at 10:15; Stop 11/29/17 at 15:14; Status DC Alprazolam (Xanax) 1 mg ONCE ONCE PO Last administered on 11/29/17at 12:52; Start 11/29/17 at 12:45; Stop 11/29/17 at 12:57; Status DC Lorazepam (Ativan Inj) 1 mg ONCE ONCE IV PUSH Last administered on 11/29/17at 13:16; Start 11/29/17 at 13:00; Stop 11/29/17 at 13:01; Status DC Sodium Chloride 1,000 ml @ 100 mls/hr Q10H IV Last administered on 11/29/17at 14:37; Start 11/29/17 at 14:00 Sodium Chloride (NS Flush) 2 ml UNSCH PRN IV FLUSH FLUSH AFTER USING IV ACCESS ; Start 11/29/17 at 14:00 Sodium Chloride (NS Flush) 2 ml BID IV FLUSH Last administered on 11/29/17at 20: 03; Start 11/29/17 at 21:00 Acetaminophen (Tylenol) 650 mg Q4H PRN PO TEMP > 100.4; Start 11/29/17 at 14:00 Ondansetron HCl (Zofran Inj) 4 mg Q6H PRN IVP NAUSEA OR VOMITING Last administered on 11/29/17at 17:34; Start 11/29/17 at 14:00 Naloxone HCl (Narcan Inj) 0.4 mg UNSCH PRN IV PUSH SEE LABEL COMMENTS; Start at 14:00 Sennosides (Senokot) 17.2 mg Q12H PRN PO Moderate constipation; Start 11/29/17 at 14:00 Ketorolac Tromethamine (Toradol Inj) 15 mg Q6H PRN IV PUSH PAIN SCALE 1 TO 10 Last administered on 11/29/17at 14:42; Start 11/29/17 at 14:15; Stop 12/02/17 at 13:59 Levothyroxine Sodium (Synthroid) 25 mcg DAILY PO ; Start 11/30/17 at 09:00 Paroxetine HCl (Paxil Cr) 50 mg DAILY PO ; Start 11/30/17 at 09:00 Losartan Potassium (Cozaar) 25 mg DAILY PO Last administered on 11/29/17at 16:18 ; Start 11/29/17 at 15:15 Clonidine (Catapres) 0.1 mg Q6H PRN PO SBP>160, DBP>90; Start 11/29/17 at 15:15 Flumazenil (Romazicon Inj) 0.2 mg Q1M PRN IV PUSH SEE LABEL COMMENTS; Start at 15:15 Lorazepam (Ativan) 1 mg Q4H PRN PO CIWA 8 - 10; Start 11/29/17 at 15:15 Lorazepam (Ativan Inj) 1 mg Q4H PRN IV PUSH CIWA 8 - 10 Last administered on at 17:34; Start 11/29/17 at 15:15 Lorazepam (Ativan) 2 mg Q2H PRN PO CIWA 11-14; Start 11/29/17 at 15:15 Lorazepam (Ativan Inj) 2 mg Q2H PRN IV PUSH CIWA 11-14; Start 11/29/17 at 15:15 Lorazepam (Ativan Inj) 2 mg Q1H PRN IV PUSH CIWA 15-20; Start 11/29/17 at 15:15 Lorazepam (Ativan Inj) 2 mg Q15M PRN IV PUSH CIWA > 20; Start 11/29/17 at 15:15 Hydralazine HCl (Apresoline Inj) 20 mg ONCE ONCE IV PUSH Last administered on 11/29/17at 16:04; Start 11/29/17 at 15:15; Stop 11/29/17 at 15:39; Status DC Family History Mother has dementia but is alive, father at 53 from unknown causes Social History No tobacco, drinks wine every evening as well as liquor, has been in detox Physical Exam Vital Signs Vital Signs Date Time Temp Pulse Resp B/P (MAP) Pulse Ox O2 Delivery O2 Flow Rate FiO2 11/29/17 16:05 87 20 178/83 (114) 98 11/29/17 14:58 87 20 182/82 (115) 97 11/29/17 14:01 90 20 190/95 (126) 95 11/29/17 13:18 80 18 193/83 (119) 95 11/29/17 12:33 80 20 196/88 (124) 96 11/29/17 11:32 83 20 173/91 (118) 97 11/29/17 09:57 97.8 82 20 178/96 (123) 94 Physical Exam Ms Greco is well-nourished, well-developed, in no apparent distress. Alert, awake and oriented to time, place and person. Speech is fluent. Cranial nerve examination: pupils to be equal, round and reactive to light. Extra-ocular movements are intact. Facial motor and sensory function are normal and symmetrical. Gross hearing appears intact. Sternocleidomastoid and trapezius muscles are symmetrical. Other cranial nerves are intact. Neck is soft and supple with a good range of motion without pain. Muscle strength is normal in all muscle groups of both upper and lower extremities. Sensory examination is intact to light touch and pin prick in both the upper and lower extremities. Deep tendon reflexes are symmetrical in both upper and lower extremities. There is a bilateral plantar flexion response. Cerebellar examination is unremarkable, without deficits. SKIN: No rashes, ecchymoses or lesions. Cool and dry. HEAD: Atraumatic. Normocephalic. No temporal or scalp tenderness. EYES: Pupils equal round and reactive. Extraocular motions intact. No scleral icterus. No injection or drainage. ENT: Nose without bleeding, purulent drainage or septal hematoma. Throat without erythema, tonsillar hypertrophy or exudate. Uvula midline. Airway patent. NECK: Trachea midline. No JVD or lymphadenopathy. Supple, nontender, no meningeal signs. CARDIOVASCULAR: Regular rate and rhythm without murmurs, gallops, or rubs. RESPIRATORY: Clear . Breath sounds equal bilaterally. No wheezes, rales, or rhonchi. Laboratory Laboratory Tests Test 11/29/17 10:15 11/29/17 10:30 White Blood Count 9.8 Red Blood Count 4.87 Hemoglobin 14.1 Hematocrit 43.0 Mean Corpuscular Volume 88.2 Mean Corpuscular Hemoglobin 29.0 Mean Corpuscular Hemoglobin Concent 32.9 Red Cell Distribution Width 13.1 Platelet Count 249 Mean Platelet Volume 9.4 Neutrophils (%) (Auto) 75.3 Lymphocytes (%) (Auto) 18.4 Monocytes (%) (Auto) 4.4 Eosinophils (%) (Auto) 1.1 Basophils (%) (Auto) 0.8 Neutrophils # (Auto) 7.4 Lymphocytes # (Auto) 1.8 Monocytes # (Auto) 0.4 Eosinophils # (Auto) 0.1 Basophils # (Auto) 0.1 CBC Comment DIFF FINAL Differential Comment Prothrombin Time 10.4 Prothromb Time International Ratio 1.0 Activated Partial Thromboplast Time 22.2 Blood Urea Nitrogen 13 Creatinine 0.81 Random Glucose 105 Total Protein 7.2 Albumin 3.4 Calcium Level 8.7 Alkaline Phosphatase 132 Aspartate Amino Transf (AST/SGOT) 21 Alanine Aminotransferase (ALT/SGPT) 21 Total Bilirubin 0.4 Sodium Level 136 Potassium Level 3.8 Chloride Level 102 Carbon Dioxide Level 26.3 Anion Gap 8 Estimat Glomerular Filtration Rate 70 Urine Collection Type CLEAN CATCH Urine Color YELLOW Urine Turbidity CLEAR Urine pH 6.5 Urine Specific [place] 1.014 Urine Protein NEG Urine Glucose (UA) NEG Urine Ketones NEG Urine Occult Blood TRACE Urine Nitrite NEG Urine Bilirubin NEG Urine Leukocyte Esterase NEG Urine WBC 0-2 Urine Squamous Epithelial Cells 0-5 Microscopic Urinalysis Comment CULT NOT INDICATED Result Diagram: 11/29/17 1015 11/29/17 1015 Imaging Last Impressions Thoracic Spine CT 11/29/17 1014 Signed Impressions: Service Date/Time: Wednesday, November 29, 2017 10:55 - CONCLUSION: 1. No evidence of acute compression deformity or spondylolisthesis in the thoracic spine. 2. Superior endplate compression fracture at L1 with posterior protruding superior cortex indenting the thecal sac. Augustin Simmons MD Lumbar Spine CT 11/29/17 1014 Signed Impressions: Service Date/Time: Wednesday, November 29, 2017 10:55 - CONCLUSION: 1. L1 superior endplate compression fracture with sclerosis and thin fracture lines and retro-pulsed posterior superior cortex indenting on the thecal sac. The neural foramen remain patent. Possible nondisplaced hairline fracture through the left pedicle. 2. Prominent bilateral facet joint hypertrophy at L4-5, greater in severity in the left side with associated neural foraminal stenosis superimposed upon broad-based bulging of the disc. Augustin Simmons MD Assessment and Plan Assessment and Plan Caprini VTE Risk Assessment Caprini VTE Risk Assessment Caprini VTE Risk Assessment: Mod/High Risk (score >= 2) Caprini Risk Assessment Model Point Value = 1 Point Value = 2 Point Value = 3 Point Value = 5 Age 41-60 Minor surgery BMI > 25 kg/m2 Swollen legs Varicose veins or History of unexplained or recurrent spontaneous Oral contraceptives or hormone replacement Sepsis (< 1 month) Serious lung disease, including pneumonia (< 1 month) Abnormal pulmonary function Acute myocardial infarction Congestive heart failure (< 1 month) History of inflammatory bowel disease Medical patient at bed rest Age 61-74 Arthroscopic surgery Major open surgery (> 45 min) Laparoscopic surgery (> 45 min) Malignancy Confined to bed (> 72 hours) Immobilizing plaster cast Central venous access Age >= 75 History of VTE Family history of VTE Factor V Leiden Prothrombin [id number] Lupus anticoagulant Anticardiolipin antibodies Elevated serum homocysteine Heparin-induced thrombocytopenia Other congenital or acquired thrombophilia Stroke (< 1 month) Elective arthroplasty Hip, pelvis, or leg fracture Acute spinal cord injury (< 1 month) Prophylaxis Regimen Total Risk Factor Score Risk Level Prophylaxis Regimen 0-1 Low Early ambulation 2 Moderate Order ONE of the following: *Sequential Compression Device (SCD) *Heparin 5000 units SQ BID 3-4 Higher Order ONE of the following medications: *Heparin 5000 units SQ TID *Enoxaparin/Lovenox 40 mg SQ daily (WT < 150 kg, CrCl > 30 mL/min) *Enoxaparin/Lovenox 30 mg SQ daily (WT < 150 kg, CrCl > 10-29 mL/min) *Enoxaparin/Lovenox 30 mg SQ BID (WT < 150 kg, CrCl > 30 mL/min) AND/OR *Sequential Compression Device (SCD) 5 or more Highest Order ONE of the following medications: *Heparin 5000 units SQ TID (Preferred with Epidurals) *Enoxaparin/Lovenox 40 mg SQ daily (WT < 150 kg, CrCl > 30 mL/min) *Enoxaparin/Lovenox 30 mg SQ daily (WT < 150 kg, CrCl > 10-29 mL/min) *Enoxaparin/Lovenox 30 mg SQ BID (WT < 150 kg, CrCl > 30 mL/min) AND *Sequential Compression Device (SCD) Attending Statement (1) Fracture of L1 vertebra ICD Code: S32.019A - Unspecified fracture of first lumbar vertebra, initial encounter for closed fracture Status: Acute Plan: neuro checks in a serial fashion. IV nonnarcotic pain regimen. Recommend MRI lumbar spine I discussed with her the alternatves of treatment including a kyphoplasty as a last resort. She is requesting nonoperative treatment for now. TLSO brace ordered Recommend follow up uprightr xrays (2) Thyroid disease ICD Code: E07.9 - Disorder of thyroid, unspecified Plan: Continue Synthroid (3) HTN (hypertension) ICD Code: I10 - Essential (primary) hypertension Plan: Continue with losartan, control pain Continue with IV blood pressure medicine (4) Anxiety ICD Code: F41.9 - Anxiety disorder, unspecified Plan: Patient does take Paxil and Xanax (5) Dehydration ICD Code: E86.0 - Dehydration Plan: Continue with aggressive IV hydration, follow electrolytes Protonix for stress ulver prophylaxis DVT prophylaxis with mookie szymanski and SCD;s Further recommendations depending on clinical evolution and follow up studies Wesley Mosher MD Nov 29, 2017 17:01
[2017-11-29] MEDS: LORazepam 2 MG/ML VIAL IV PUSH PRN (17:34)
[2017-11-29] MEDS ORDERED: XANA1TAB2 PO (17:54)
[2017-11-29] MEDS: SODIUM CHLORIDE 0.9% FLUSH 10 ML FLUSH IV FLUSH SCH (20:03)
[2017-11-30] VITALS (8 sets, daily range): BP systolic 134–188; BP diastolic 67–86; PULSE 87–99; RESP 18; TEMP 97.7–98.7; O2SAT 94–98
[2017-11-30] MEDS: SODIUM CHLOR 0.9% 1000 ML INJ 1,000 ML IV SCH ×3 (02:58→22:12)
[2017-11-30] MEDS: KETOROLAC TROMETHAMINE 30 MG/ML (IVP) VIAL IV PUSH PRN ×3 (03:49→21:09)
[2017-11-30] MEDS: cloNIDine HCL 0.1 MG TAB PO PRN ×2 (03:49→16:29)
[2017-11-30] MEDS: LORazepam 1 MG TAB PO PRN ×4 (04:21→21:11)
[2017-11-30] MEDS: SODIUM CHLORIDE 0.9% FLUSH 10 ML FLUSH IV FLUSH SCH ×2 (07:47→21:00)
[2017-11-30] MEDS: PARoxetine 25 MG CONTROLLED RELEASE TAB PO SCH (07:47)
[2017-11-30] MEDS: LOSARTAN 25 MG TAB PO SCH (07:47)
[2017-11-30] MEDS: LEVOTHYROXINE SODIUM 25 MCG TAB PO SCH (07:47)
--- NOTE | 2017-11-30 08:12 | EKG ---
Date Performed: 11/29/2017 Time Performed: 17:46:09 PTAGE: 72 years EKG: Sinus rhythm BORDERLINE LEFT AXIS DEVIATION BORDERLINE ECG INTERPRETATION BASED ON A DEFAULT AGE OF 41 YEARS NO PREVIOUS TRACING DOCTOR: Dagoberto Triplett Interpretating Date/Time 11/30/2017 08:11:54
--- NOTE | 2017-11-30 08:14 | HHI.PR ---
Subjective Remarks In the bed , says pain in her back is fairly controlled. Says she is anxious and xanax works better for her. Thinks she will not tolerate MRI because of anxiety. No n/v/d/c. No fever or chills. Objective Vitals Vital Signs Date Time Temp Pulse Resp B/P (MAP) Pulse Ox O2 Delivery O2 Flow Rate FiO2 11/30/17 05:57 134/68 (90) 11/30/17 03:43 98.1 99 18 188/86 (120) 97 11/30/17 00:02 97.7 99 18 158/78 (104) 97 11/29/17 20:00 97.5 95 18 148/76 (100) 97 11/29/17 19:04 11/29/17 17:20 103 20 180/78 (112) 96 11/29/17 16:05 87 20 178/83 (114) 98 11/29/17 14:58 87 20 182/82 (115) 97 11/29/17 14:01 90 20 190/95 (126) 95 11/29/17 13:18 80 18 193/83 (119) 95 11/29/17 12:33 80 20 196/88 (124) 96 11/29/17 11:32 83 20 173/91 (118) 97 11/29/17 09:57 97.8 82 20 178/96 (123) 94 I/O 11/29/17 11/29/17 11/29/17 11/30/17 11/30/17 11/30/17 07:00 15:00 23:00 07:00 15:00 23:00 Intake Total 1000 ml Output Total 900 ml Balance 100 ml Intake IV Total 1000 ml Output Urine Total 900 ml Bladder Scan Volume Amount 4 ml Result Diagram: 11/29/17 1015 11/29/17 1015 Imaging Last Impressions Thoracic Spine CT 11/29/17 1014 Signed Impressions: Service Date/Time: Wednesday, November 29, 2017 10:55 - CONCLUSION: 1. No evidence of acute compression deformity or spondylolisthesis in the thoracic spine. 2. Superior endplate compression fracture at L1 with posterior protruding superior cortex indenting the thecal sac. Augustin Simmons MD Lumbar Spine CT 11/29/17 1014 Signed Impressions: Service Date/Time: Wednesday, November 29, 2017 10:55 - CONCLUSION: 1. L1 superior endplate compression fracture with sclerosis and thin fracture lines and retro-pulsed posterior superior cortex indenting on the thecal sac. The neural foramen remain patent. Possible nondisplaced hairline fracture through the left pedicle. 2. Prominent bilateral facet joint hypertrophy at L4-5, greater in severity in the left side with associated neural foraminal stenosis superimposed upon broad-based bulging of the disc. Augustin Simmons MD Objective Remarks GENERAL: This is a well-nourished, well-developed patient, in no apparent distress. SKIN: No rashes, ecchymoses or lesions. Cool and dry. CARDIOVASCULAR: Regular rate and rhythm without murmurs, gallops, or rubs. RESPIRATORY: Clear to auscultation. Breath sounds equal bilaterally. No wheezes , rales, or rhonchi. GASTROINTESTINAL: Abdomen soft, non-tender, nondistended. No hepato-splenomegaly , or palpable masses. No guarding. MUSCULOSKELETAL: Mid back pain, Extremities without clubbing, cyanosis, or edema. No joint tenderness, effusion, or edema noted. No calf tenderness. Negative Homans sign bilaterally. NEUROLOGICAL: Awake and alert. Cranial nerves II through XII intact. Motor and sensory grossly within normal limits. Five out of 5 muscle strength in all muscle groups. Normal speech. A/P Problem List: (1) Fracture of L1 vertebra ICD Code: S32.019A - Unspecified fracture of first lumbar vertebra, initial encounter for closed fracture Status: Acute (2) Thyroid disease ICD Code: E07.9 - Disorder of thyroid, unspecified (3) HTN (hypertension) ICD Code: I10 - Essential (primary) hypertension (4) Anxiety ICD Code: F41.9 - Anxiety disorder, unspecified (5) Dehydration ICD Code: E86.0 - Dehydration Assessment and Plan Fracture of L1 vertebra Continue with IV nonnarcotic pain regimen Neurosurgery consulted, appreciate recommendations continue conservative managemnt at this time. Thyroid disease Continue Synthroid HTN (hypertension) Continue with losartan, control pain Continue with IV blood pressure medicine Anxiety Patient does take Paxil and Xanax Dehydration Continue with aggressive IV hydration, follow electrolytes Assessment and Plan transfer to [facility] [place] nsgy eval Code Status full code Discussed Condition With patient, nurse Di Olmos MD Nov 30, 2017 08:14
[2017-11-30 09:18] LABS: AUTOMATED NEUTROPHIL # 8.3 TH/MM3 (1.8-7.7); BASOPHIL % 0.3 % (0.0-2.0); EOSINOPHIL # 0.1 TH/MM3 (0-0.4); HEMATOCRIT 40.3 % (35.0-46.0); HEMOGLOBIN 13.5 GM/DL (11.6-15.3); LYMPH % 18.3 % (9.0-44.0); LYMPHOCYTE # 2.1 TH/MM3 (1.0-4.8); MEAN CELL VOLUME 88.2 FL (80.0-100.0); MEAN CORPUSCULAR HEMOGLOBIN 29.5 PG (27.0-34.0); MEAN CORPUSCULAR HGB CONC 33.5 % (32.0-36.0); MEAN PLATELET VOLUME 9.2 FL (7.0-11.0); MONO % 6.2 % (0.0-8.0); MONOCYTE # 0.7 TH/MM3 (0-0.9); NEUT % 74.2 % (16.0-70.0); PLATELET COUNT 277 TH/MM3 (150-450); RED BLOOD COUNT 4.57 MIL/MM3 (4.00-5.30); RED CELL DISTRIBUTION WIDTH 14.2 % (11.6-17.2); WHITE BLOOD COUNT 11.2 TH/MM3 (4.0-11.0)
[2017-11-30 09:49] LABS: BICARBONATE 25.5 MEQ/L (21.0-32.0); CALCIUM 8.7 MG/DL (8.5-10.1); CREATININE 0.61 MG/DL (0.50-1.00)
[2017-11-30] MEDS: LORazepam 0.5 MG TAB PO PRN (12:25)
[2017-11-30] MEDS ORDERED: ALPRAZolam 1 MG TAB PO ONE (14:15)
--- NOTE | 2017-11-30 15:20 | HHI.NSPN ---
(Jazmine Avalos) Note Status Status: Progress Note (Jazmine Avalos) Interval History Interval History 11/30: remains painful in the low back, pain worsens with movement. reports to be severely claustrophobic does not feel she can go through an MRI without being put to sleep. (Jazmine Avalos) Labs, Micro, & Vital Signs Results Date Time Temp Pulse Resp B/P (MAP) Pulse Ox O2 Delivery O2 Flow Rate FiO2 11/30/17 12:00 98.0 95 18 167/81 (109) 97 11/30/17 10:39 140/67 (91) 11/30/17 08:00 98.7 95 18 170/83 (112) 97 11/30/17 05:57 134/68 (90) 11/30/17 03:43 98.1 99 18 188/86 (120) 97 11/30/17 00:02 97.7 99 18 158/78 (104) 97 11/29/17 20:00 97.5 95 18 148/76 (100) 97 11/29/17 19:04 11/29/17 17:20 103 20 180/78 (112) 96 11/29/17 16:05 87 20 178/83 (114) 98 12/01/17 06:59 Output Total 400 ml Balance -400 ml Constitutional Vital Signs Date Time Temp Pulse Resp B/P (MAP) Pulse Ox O2 Delivery O2 Flow Rate FiO2 11/30/17 12:00 98.0 95 18 167/81 (109) 97 11/30/17 10:39 140/67 (91) 11/30/17 08:00 98.7 95 18 170/83 (112) 97 11/30/17 05:57 134/68 (90) 11/30/17 03:43 98.1 99 18 188/86 (120) 97 11/30/17 00:02 97.7 99 18 158/78 (104) 97 11/29/17 20:00 97.5 95 18 148/76 (100) 97 11/29/17 19:04 11/29/17 17:20 103 20 180/78 (112) 96 11/29/17 16:05 87 20 178/83 (114) 98 12/01/17 06:59 Output Total 400 ml Balance -400 ml (Jazmine Avalos) Review of Systems Constitutional: DENIES: Fever Respiratory: DENIES: Shortness of breath Cardiovascular: DENIES: Chest pain, Palpitations Musculoskeletal: COMPLAINS OF: Back pain Neurologic: DENIES: Localized weakness (Jazmine Avalos) Physical Exam Ms. Greco is alert, awake and oriented to time, place and person. Speech is fluent. Cranial nerve examination: pupils equal, round, and reactive to light. Extra- ocular movements are intact. Facial motor are normal and symmetrical. HEENT: normocephalic. nonicteric sclera. Neck is soft and supple. Musculoskeletal: moves all four extremities well Sensory examination is intact to light touch in both the upper and lower extremities Deep tendon reflexes: In the lower extremities, the patellar and Achilles are 1+ , bilaterally. There is a bilateral plantar flexion response. There is no clonus Heart: regular rate Lungs: clear, no wheezing (Jazmine Avalos) Ms. Greco is alert, awake and oriented to time, place and person. Speech is fluent. Cranial nerve examination: pupils equal, round, and reactive to light. Extra- ocular movements are intact. Facial motor are normal and symmetrical. HEENT: normocephalic. nonicteric sclera. Neck is soft and supple. Musculoskeletal: moves all four extremities well Sensory examination is intact to light touch in both the upper and lower extremities Deep tendon reflexes: In the lower extremities, the patellar and Achilles are 1+ , bilaterally. There is a bilateral plantar flexion response. There is no clonus Heart: regular rate Lungs: clear, no wheezing (Wesley Mosher MD) Medications Current Medications Current Medications Medications (Trade) Dose Ordered Sig/Faith Route PRN Reason Start Time Stop Time Status Last Admin Dose Admin Sodium Chloride 1,000 ml @ 100 mls/hr Q10H IV 11/29/17 14:00 11/30/17 02:58 Sodium Chloride (NS Flush) 2 ml UNSCH PRN IV FLUSH FLUSH AFTER USING IV ACCESS 11/29/17 14:00 Sodium Chloride (NS Flush) 2 ml BID IV FLUSH 11/29/17 21:00 11/30/17 07:47 Acetaminophen (Tylenol) 650 mg Q4H PRN PO TEMP > 100.4 11/29/17 14:00 Ondansetron HCl (Zofran Inj) 4 mg Q6H PRN IVP NAUSEA OR VOMITING 11/29/17 14:00 11/29/17 17:34 Naloxone HCl (Narcan Inj) 0.4 mg UNSCH PRN IV PUSH SEE LABEL COMMENTS 11/29/17 14:00 Sennosides (Senokot) 17.2 mg Q12H PRN PO Moderate constipation 11/29/17 14:00 Ketorolac Tromethamine (Toradol Inj) 15 mg Q6H PRN IV PUSH PAIN SCALE 1 TO 10 11/29/17 14:15 12/02/17 13:59 11/30/17 14:00 Levothyroxine Sodium (Synthroid) 25 mcg DAILY PO 11/30/17 09:00 11/30/17 07:47 Paroxetine HCl (Paxil Cr) 50 mg DAILY PO 11/30/17 09:00 11/30/17 07:47 Losartan Potassium (Cozaar) 25 mg DAILY PO 11/29/17 15:15 11/30/17 07:47 Clonidine (Catapres) 0.1 mg Q6H PRN PO SBP>160, DBP>90 11/29/17 15:15 11/30/17 03:49 Flumazenil (Romazicon Inj) 0.2 mg Q1M PRN IV PUSH SEE LABEL COMMENTS 11/29/17 15:15 Lorazepam (Ativan) 1 mg Q4H PRN PO CIWA 8 - 10 11/29/17 15:15 11/30/17 08:19 Lorazepam (Ativan Inj) 1 mg Q4H PRN IV PUSH CIWA 8 - 10 11/29/17 15:15 11/29/17 17:34 Lorazepam (Ativan) 2 mg Q2H PRN PO CIWA 11-14 11/29/17 15:15 Lorazepam (Ativan Inj) 2 mg Q2H PRN IV PUSH CIWA 11-14 11/29/17 15:15 Lorazepam (Ativan Inj) 2 mg Q1H PRN IV PUSH CIWA 15-20 11/29/17 15:15 Lorazepam (Ativan Inj) 2 mg Q15M PRN IV PUSH CIWA > 20 11/29/17 15:15 Lorazepam (Ativan) 0.5 mg Q8H PRN PO anxiety 11/30/17 11:00 11/30/17 12:25 Haloperidol Lactate (Haldol Inj) 2 mg Q8HR PRN IV PUSH ANXIETY /AGITATION 11/30/17 15:00 (Jazmine Avalos) Current Medications Current Medications Sodium Chloride 1,000 ml @ 200 mls/hr Q5H ONCE IV Last administered on at 10:42; Start 11/29/17 at 10:15; Stop 11/29/17 at 15:14; Status DC Alprazolam (Xanax) 1 mg ONCE ONCE PO Last administered on 11/29/17at 12:52; Start 11/29/17 at 12:45; Stop 11/29/17 at 12:57; Status DC Lorazepam (Ativan Inj) 1 mg ONCE ONCE IV PUSH Last administered on 11/29/17at 13:16; Start 11/29/17 at 13:00; Stop 11/29/17 at 13:01; Status DC Sodium Chloride 1,000 ml @ 100 mls/hr Q10H IV Last administered on 12/01/17at 06:00; Start 11/29/17 at 14:00; Stop 12/01/17 at 10:17; Status DC Sodium Chloride (NS Flush) 2 ml UNSCH PRN IV FLUSH FLUSH AFTER USING IV ACCESS ; Start 11/29/17 at 14:00 Sodium Chloride (NS Flush) 2 ml BID IV FLUSH Last administered on 12/02/17at 09: 00; Start 11/29/17 at 21:00 Acetaminophen (Tylenol) 650 mg Q4H PRN PO TEMP > 100.4; Start 11/29/17 at 14:00 Ondansetron HCl (Zofran Inj) 4 mg Q6H PRN IVP NAUSEA OR VOMITING Last administered on 11/29/17at 17:34; Start 11/29/17 at 14:00 Naloxone HCl (Narcan Inj) 0.4 mg UNSCH PRN IV PUSH SEE LABEL COMMENTS; Start at 14:00 Sennosides (Senokot) 17.2 mg Q12H PRN PO Moderate constipation; Start 11/29/17 at 14:00 Ketorolac Tromethamine (Toradol Inj) 15 mg Q6H PRN IV PUSH PAIN SCALE 1 TO 10 Last administered on 12/02/17at 12:06; Start 11/29/17 at 14:15; Stop 12/02/17 at 13:59; Status DC Levothyroxine Sodium (Synthroid) 25 mcg DAILY PO Last administered on at 09:31; Start 11/30/17 at 09:00 Paroxetine HCl (Paxil Cr) 50 mg DAILY PO Last administered on 12/02/17 09:30; Start 11/30/17 at 09:00 Losartan Potassium (Cozaar) 25 mg DAILY PO Last administered on 12/02/17 09:30 ; Start 11/29/17 at 15:15 Clonidine (Catapres) 0.1 mg Q6H PRN PO SBP>160, DBP>90 Last administered on at 05:54; Start 11/29/17 at 15:15 Flumazenil (Romazicon Inj) 0.2 mg Q1M PRN IV PUSH SEE LABEL COMMENTS; Start at 15:15 Lorazepam (Ativan) 1 mg Q4H PRN PO CIWA 8 - 10 Last administered on 12/02/17at 05:54; Start 11/29/17 at 15:15 Lorazepam (Ativan Inj) 1 mg Q4H PRN IV PUSH CIWA 8 - 10 Last administered on at 17:34; Start 11/29/17 at 15:15 Lorazepam (Ativan) 2 mg Q2H PRN PO CIWA 11-14; Start 11/29/17 at 15:15 Lorazepam (Ativan Inj) 2 mg Q2H PRN IV PUSH CIWA 11-14 Last administered on at 10:08; Start 11/29/17 at 15:15 Lorazepam (Ativan Inj) 2 mg Q1H PRN IV PUSH CIWA 15-20 Last administered on at 16:25; Start 11/29/17 at 15:15 Lorazepam (Ativan Inj) 2 mg Q15M PRN IV PUSH CIWA > 20; Start 11/29/17 at 15:15 Hydralazine HCl (Apresoline Inj) 20 mg ONCE ONCE IV PUSH Last administered on 11/29/17at 16:04; Start 11/29/17 at 15:15; Stop 11/29/17 at 15:39; Status DC Lorazepam (Ativan) 0.5 mg Q8H PRN PO anxiety Last administered on 12/01/17at 06: 46; Start 11/30/17 at 11:00 Alprazolam (Xanax) 1 mg [employer] ONCE PO Last administered on 11/30/17at 14:15; Start 11/30/17 at 14:15; Stop 11/30/17 at 14:16; Status DC Haloperidol Lactate (Haldol Inj) 2 mg Q8HR PRN IV PUSH ANXIETY /AGITATION Last administered on 12/01/17at 15:48; Start 11/30/17 at 15:00 Potassium Chloride (KCl) 40 meq ONCE ONCE PO Last administered on 12/01/17at 10 :45; Start 12/01/17 at 10:30; Stop 12/01/17 at 10:31; Status DC Alprazolam (Xanax) 1 mg Q8H PRN PO ANXIETY if refusing ativan; Start 12/01/17 at 10:30; Stop 12/01/17 at 13:48; Status DC Alprazolam (Xanax) 1 mg Q6H PRN PO ANXIETY if refusing ativan Last administered on 12/02/17at 09:39; Start 12/01/17 at 14:00; Stop 12/02/17 at 10:51 ; Status DC Diphenhydramine HCl (Benadryl Inj) 25 mg [employer] ONCE IM Last administered on 12/01/17at 15:52; Start 12/01/17 at 14:00; Stop 12/01/17 at 14:01; Status DC Gadodiamide (Omniscan Pf Inj) 15 ml STK-MED ONCE IVCONTRAST Last administered on 12/01/17at 17:37; Start 12/01/17 at 17:37; Stop 12/01/17 at 17:38; Status DC Potassium Chloride (KCl) 30 meq ONCE ONCE PO Last administered on 12/02/17at 09 :39; Start 12/02/17 at 08:15; Stop 12/02/17 at 08:16; Status DC Gabapentin (Neurontin) 300 mg TID PO Last administered on 12/02/17at 12:07; Start 12/02/17 at 13:00 Potassium Chloride (KCl) 40 meq ONCE ONCE PO ; Start 12/02/17 at 15:00; Stop at 15:01; Status DC (Wesley Mosher MD) Medical Decision Making MDM Remarks 72 y/o female s/p fall with intractable back pain CT studies with L1 compression fracture (Jazmine Avalos) MDM Remarks Last 48 hours Impressions Lumbar Spine MRI 12/01/17 0000 Signed Impressions: Service Date/Time: November 16:44 - CONCLUSION: Moderate severity subacute compression fracture injury at L1. This lesion does appear amenable to reduction and stabilization with kyphoplasty. Chano Cade MD (Wesley Mosher MD) Plan Plan Remarks Dr. Mosher recommends MRI L spine, patient however is claustrophobic will require heavy sedation, Dr. Mosher derring to attending physician cont supportive care further recommendations to follow upon completion of MRI (Jazmine Avalos) Plan Remarks well-nourished, well-developed patient, in no apparent distress. Alert, awake and oriented to time, place and person. Speech is fluent. Cranial nerve examination: pupils to be equal, round and reactive to light. Extra-ocular movements are intact. Facial motor and sensory function are normal and symmetrical. Gross hearing appears intact. Sternocleidomastoid and trapezius muscles are symmetrical. Other cranial nerves are intact. Neck is soft and supple with a good range of motion without pain. Muscle strength is normal in all muscle groups of both upper and lower extremities. Sensory examination is intact to light touch and pin prick in both the upper and lower extremities. Deep tendon reflexes are symmetrical in both upper and lower extremities. There is a bilateral plantar flexion response. Cerebellar examination is unremarkable, without deficits. SKIN: No rashes, ecchymoses or lesions. Cool and dry. HEAD: Atraumatic. Normocephalic. No temporal or scalp tenderness. EYES: Pupils equal round and reactive. Extraocular motions intact. No scleral icterus. No injection or drainage. ENT: Nose without bleeding, purulent drainage or septal hematoma. Throat without erythema, tonsillar hypertrophy or exudate. Uvula midline. Airway patent. NECK: Trachea midline. No JVD or lymphadenopathy. Supple, nontender, no meningeal signs. CARDIOVASCULAR: Regular rate and rhythm without murmurs, gallops, or rubs. RESPIRATORY: Clear . Breath sounds equal bilaterally. No wheezes, rales, or rhonchi. Laboratory Laboratory Tests Test 11/29/17 10:15 11/29/17 10:30 White Blood Count 9.8 Red Blood Count 4.87 Hemoglobin 14.1 Hematocrit 43.0 Mean Corpuscular Volume 88.2 Mean Corpuscular Hemoglobin 29.0 Mean Corpuscular Hemoglobin Concent 32.9 Red Cell Distribution Width 13.1 Platelet Count 249 Mean Platelet Volume 9.4 Neutrophils (%) (Auto) 75.3 Lymphocytes (%) (Auto) 18.4 Monocytes (%) (Auto) 4.4 Eosinophils (%) (Auto) 1.1 Basophils (%) (Auto) 0.8 Neutrophils # (Auto) 7.4 Lymphocytes # (Auto) 1.8 Monocytes # (Auto) 0.4 Eosinophils # (Auto) 0.1 Basophils # (Auto) 0.1 CBC Comment DIFF FINAL Differential Comment Prothrombin Time 10.4 Prothromb Time International Ratio 1.0 Activated Partial Thromboplast Time 22.2 Blood Urea Nitrogen 13 Creatinine 0.81 Random Glucose 105 Total Protein 7.2 Albumin 3.4 Calcium Level 8.7 Alkaline Phosphatase 132 Aspartate Amino Transf (AST/SGOT) 21 Alanine Aminotransferase (ALT/SGPT) 21 Total Bilirubin 0.4 Sodium Level 136 Potassium Level 3.8 Chloride Level 102 Carbon Dioxide Level 26.3 Anion Gap 8 Estimat Glomerular Filtration Rate 70 Urine Collection Type CLEAN CATCH Urine Color YELLOW Urine Turbidity CLEAR Urine pH 6.5 Urine Specific Hyndman 1.014 Urine Protein NEG Urine Glucose (UA) NEG Urine Ketones NEG Urine Occult Blood TRACE Urine Nitrite NEG Urine Bilirubin NEG Urine Leukocyte Esterase NEG Urine WBC 0-2 Urine Squamous Epithelial Cells 0-5 Microscopic Urinalysis Comment CULT NOT INDICATED Result Diagram: 11/29/17 1015 11/29/17 1015 Imaging Last Impressions Thoracic Spine CT 11/29/17 1014 Signed Impressions: Service Date/Time: Wednesday, November 29, 2017 10:55 - CONCLUSION: 1. No evidence of acute compression deformity or spondylolisthesis in the thoracic spine. 2. Superior endplate compression fracture at L1 with posterior protruding superior cortex indenting the thecal sac. Augustin Simmons MD Lumbar Spine CT 11/29/17 1014 Signed Impressions: Service Date/Time: Wednesday, November 29, 2017 10:55 - CONCLUSION: 1. L1 superior endplate compression fracture with sclerosis and thin fracture lines and retro-pulsed posterior superior cortex indenting on the thecal sac. The neural foramen remain patent. Possible nondisplaced hairline fracture through the left pedicle. 2. Prominent bilateral facet joint hypertrophy at L4-5, greater in severity in the left side with associated neural foraminal stenosis superimposed upon broad-based bulging of the disc. Augustin Simmons MD Assessment and Plan Assessment and Plan Caprini VTE Risk Assessment Caprini VTE Risk Assessment Caprini VTE Risk Assessment: Mod/High Risk (score >= 2) Caprini Risk Assessment Model Point Value = 1 Point Value = 2 Point Value = 3 Point Value = 5 Age 41-60 Minor surgery BMI > 25 kg/m2 Swollen legs Varicose veins or History of unexplained or recurrent spontaneous Oral contraceptives or hormone replacement Sepsis (< 1 month) Serious lung disease, including pneumonia (< 1 month) Abnormal pulmonary function Acute myocardial infarction Congestive heart failure (< 1 month) History of inflammatory bowel disease Medical patient at bed rest Age 61-74 Arthroscopic surgery Major open surgery (> 45 min) Laparoscopic surgery (> 45 min) Malignancy Confined to bed (> 72 hours) Immobilizing plaster cast Central venous access Age >= 75 History of VTE Family history of VTE Factor V Leiden Prothrombin [id number] Lupus anticoagulant Anticardiolipin antibodies Elevated serum homocysteine Heparin-induced thrombocytopenia Other congenital or acquired thrombophilia Stroke (< 1 month) Elective arthroplasty Hip, pelvis, or leg fracture Acute spinal cord injury (< 1 month) Prophylaxis Regimen Total Risk Factor Score Risk Level Prophylaxis Regimen 0-1 Low Early ambulation 2 Moderate Order ONE of the following: *Sequential Compression Device (SCD) *Heparin 5000 units SQ BID 3-4 Higher Order ONE of the following medications: *Heparin 5000 units SQ TID *Enoxaparin/Lovenox 40 mg SQ daily (WT < 150 kg, CrCl > 30 mL/min) *Enoxaparin/Lovenox 30 mg SQ daily (WT < 150 kg, CrCl > 10-29 mL/min) *Enoxaparin/Lovenox 30 mg SQ BID (WT < 150 kg, CrCl > 30 mL/min) AND/OR *Sequential Compression Device (SCD) 5 or more Highest Order ONE of the following medications: *Heparin 5000 units SQ TID (Preferred with Epidurals) *Enoxaparin/Lovenox 40 mg SQ daily (WT < 150 kg, CrCl > 30 mL/min) *Enoxaparin/Lovenox 30 mg SQ daily (WT < 150 kg, CrCl > 10-29 mL/min) *Enoxaparin/Lovenox 30 mg SQ BID (WT < 150 kg, CrCl > 30 mL/min) AND *Sequential Compression Device (SCD) (Wesley Mosher MD) Attending Statement (1) Fracture of L1 vertebra ICD Code: S32.019A - Unspecified fracture of first lumbar vertebra, initial encounter for closed fracture Status: Acute Plan: neuro checks in a serial fashion. IV nonnarcotic pain regimen. I reviewed her MRI lumbar spine and discussed with her the alternatves of treatment, including a kyphoplasty as a last resort. She is continuing to request nonoperative treatment for now. TLSO brace ordered Recommend follow up uprightr xrays (2) Thyroid disease ICD Code: E07.9 - Disorder of thyroid, unspecified Plan: Continue Synthroid (3) HTN (hypertension) ICD Code: I10 - Essential (primary) hypertension Plan: Continue with losartan, control pain Continue with IV blood pressure medicine (4) Anxiety ICD Code: F41.9 - Anxiety disorder, unspecified Plan: Patient does take Paxil and Xanax (5) Dehydration ICD Code: E86.0 - Dehydration Plan: Continue with aggressive IV hydration, follow electrolytes Protonix for stress ulver prophylaxis DVT prophylaxis with mookie hose and SCD;s Further recommendations depending on clinical evolution and follow up studiesThe exam, history, and the medical decision-making described in the above note were completed with the assistance of the mid-level provider. I reviewed and agree with the findings presented. I attest that I had a face-to- face encounter with the patient on the same day, and personally performed and documented my assessment and findings in the medical record. (Wesley Mosher MD) Jazmine Avalos Nov 30, 2017 15:20 Wesley Mosher MD Dec 02, 2017 15:58
[2017-12-01] VITALS: BP 167/77; PULSE 92; RESP 18; TEMP 98.3; O2SAT 97
[2017-12-01 04:00] VITALS: BP 188/84; PULSE 100; RESP 18; TEMP 98.6; O2SAT 95
[2017-12-01 05:34] LABS: AUTOMATED NEUTROPHIL # 8.1 TH/MM3 (1.8-7.7); BASOPHIL % 0.4 % (0.0-2.0); EOSINOPHIL # 0.2 TH/MM3 (0-0.4); HEMATOCRIT 39.7 % (35.0-46.0); HEMOGLOBIN 13.3 GM/DL (11.6-15.3); LYMPHOCYTE # 2.4 TH/MM3 (1.0-4.8); MEAN CELL VOLUME 88.4 FL (80.0-100.0); MEAN CORPUSCULAR HEMOGLOBIN 29.7 PG (27.0-34.0); MEAN CORPUSCULAR HGB CONC 33.6 % (32.0-36.0); MEAN PLATELET VOLUME 9.6 FL (7.0-11.0); MONO % 6.5 % (0.0-8.0); MONOCYTE # 0.8 TH/MM3 (0-0.9); NEUT % 70.1 % (16.0-70.0); PLATELET COUNT 267 TH/MM3 (150-450); RED BLOOD COUNT 4.49 MIL/MM3 (4.00-5.30); RED CELL DISTRIBUTION WIDTH 13.5 % (11.6-17.2); WHITE BLOOD COUNT 11.5 TH/MM3 (4.0-11.0)
[2017-12-01 05:48] LABS: CALCIUM 8.2 MG/DL (8.5-10.1); CREATININE 0.63 MG/DL (0.50-1.00); MAGNESIUM 1.8 MG/DL (1.5-2.5)
[2017-12-01] MEDS: SODIUM CHLOR 0.9% 1000 ML INJ 1,000 ML IV SCH (06:00)
[2017-12-01] MEDS: KETOROLAC TROMETHAMINE 30 MG/ML (IVP) VIAL IV PUSH PRN ×3 (06:45→21:20)
[2017-12-01] MEDS: LORazepam 0.5 MG TAB PO PRN (06:46)
[2017-12-01] MEDS: LEVOTHYROXINE SODIUM 25 MCG TAB PO SCH (08:23)
[2017-12-01] MEDS: PARoxetine 25 MG CONTROLLED RELEASE TAB PO SCH (08:23)
[2017-12-01] MEDS: SODIUM CHLORIDE 0.9% FLUSH 10 ML FLUSH IV FLUSH SCH ×2 (08:23→21:25)
[2017-12-01] MEDS: LOSARTAN 25 MG TAB PO SCH (08:23)
[2017-12-01 08:26] VITALS: BP 159/91; PULSE 94; RESP 18; TEMP 98; O2SAT 97
[2017-12-01] MEDS ORDERED: ALPRAZolam 1 MG TAB PO PRN (10:30)
[2017-12-01] MEDS ORDERED: POTASSIUM CHLORIDE 10 MEQ CONTROLLED RELEASE TAB PO ONE (10:30)
[2017-12-01 12:00] VITALS: BP 192/91; PULSE 95; RESP 18; TEMP 98.3; O2SAT 95
--- NOTE | 2017-12-01 12:49 | HHI.PR ---
Subjective Remarks Back pain controlled by meds. She is however anxious for going to MRI No motor or sensory deficit. No fever or chills. No n/v/d/c. Objective Vitals Vital Signs Date Time Temp Pulse Resp B/P (MAP) Pulse Ox O2 Delivery O2 Flow Rate FiO2 12/01/17 12:00 98.3 95 18 192/91 (124) 95 12/01/17 08:26 98.0 94 18 159/91 (113) 97 12/01/17 04:00 98.6 100 18 188/84 (118) 95 12/01/17 00:00 98.3 92 18 167/77 (107) 97 11/30/17 20:00 98.7 87 18 174/83 (113) 98 11/30/17 16:04 98.1 91 18 178/81 (113) 94 I/O 11/30/17 11/30/17 11/30/17 12/01/17 12/01/17 12/01/17 07:00 15:00 23:00 07:00 15:00 23:00 Intake Total 1000 ml 480 ml Output Total 900 ml 400 ml 200 ml Balance 100 ml 80 ml -200 ml Intake Oral 480 ml IV Total 1000 ml Output Urine Total 900 ml 400 ml 200 ml Bladder Scan Volume Amount 4 ml # Voids 5 5 Result Diagram: 12/01/17 0441 12/01/17 0441 Imaging Last Impressions Lumbar Spine MRI 12/01/17 0000 Signed Impressions: Service Date/Time: November 16:44 - CONCLUSION: Moderate severity subacute compression fracture injury at L1. This lesion does appear amenable to reduction and stabilization with kyphoplasty. Chano Cade MD Thoracic Spine CT 11/29/17 1014 Signed Impressions: Service Date/Time: Wednesday, November 29, 2017 10:55 - CONCLUSION: 1. No evidence of acute compression deformity or spondylolisthesis in the thoracic spine. 2. Superior endplate compression fracture at L1 with posterior protruding superior cortex indenting the thecal sac. Augustin Simmons MD Lumbar Spine CT 11/29/17 1014 Signed Impressions: Service Date/Time: Wednesday, November 29, 2017 10:55 - CONCLUSION: 1. L1 superior endplate compression fracture with sclerosis and thin fracture lines and retro-pulsed posterior superior cortex indenting on the thecal sac. The neural foramen remain patent. Possible nondisplaced hairline fracture through the left pedicle. 2. Prominent bilateral facet joint hypertrophy at L4-5, greater in severity in the left side with associated neural foraminal stenosis superimposed upon broad-based bulging of the disc. Augustin Simmons MD Objective Remarks GENERAL: This is a well-nourished, well-developed patient, in no apparent distress. SKIN: No rashes, ecchymoses or lesions. Cool and dry. CARDIOVASCULAR: Regular rate and rhythm without murmurs, gallops, or rubs. RESPIRATORY: Clear to auscultation. Breath sounds equal bilaterally. No wheezes , rales, or rhonchi. GASTROINTESTINAL: Abdomen soft, non-tender, nondistended. No hepato-splenomegaly , or palpable masses. No guarding. MUSCULOSKELETAL: Mid back pain, Extremities without clubbing, cyanosis, or edema. No joint tenderness, effusion, or edema noted. No calf tenderness. Negative Homans sign bilaterally. NEUROLOGICAL: Awake and alert. Cranial nerves II through XII intact. Motor and sensory grossly within normal limits. Five out of 5 muscle strength in all muscle groups. Normal speech. A/P Problem List: (1) Fracture of L1 vertebra ICD Code: S32.019A - Unspecified fracture of first lumbar vertebra, initial encounter for closed fracture Status: Acute (2) Thyroid disease ICD Code: E07.9 - Disorder of thyroid, unspecified (3) HTN (hypertension) ICD Code: I10 - Essential (primary) hypertension (4) Anxiety ICD Code: F41.9 - Anxiety disorder, unspecified (5) Dehydration ICD Code: E86.0 - Dehydration Assessment and Plan Fracture of L1 vertebra Continue with IV nonnarcotic pain regimen Neurosurgery consulted, appreciate recommendations continue conservative management at this time. plan for MRI , patient with anxiety, will pretreat before MRI Thyroid disease Continue Synthroid HTN (hypertension) Continue with losartan, control pain Continue with IV blood pressure medicine Anxiety Patient does take Paxil and Xanax. on ciwa protocol Consult psych Dehydration Continue with aggressive IV hydration, follow electrolytes Code Status full code Discussed Condition With patient, nurse Di Olmos MD Dec 01, 2017 12:49
[2017-12-01] MEDS: LORazepam 2 MG/ML VIAL IV PUSH PRN ×2 (13:18→16:25)
[2017-12-01] MEDS ORDERED: diphenhydrAMINE HCL 50 MG/ML VIAL IM ONE (14:00)
[2017-12-01] MEDS: ALPRAZolam 1 MG TAB PO PRN (15:48)
[2017-12-01] MEDS: HALOPERIDOL LACTATE 5 MG/ML AMP IV PUSH PRN (15:48)
[2017-12-01 16:03] VITALS: BP 156/74; PULSE 94; RESP 18; TEMP 98.3; O2SAT 96
[2017-12-01] MEDS ORDERED: GADODIAMIDE PF 287 MG/ML 5 ML VIAL (for RAD MRI) IVCONTRAST ONE (17:37)
--- NOTE | 2017-12-01 17:59 | RADRPT ---
EXAM DATE/TIME: 12/01/2017 16:44 [facility] COMPARISON: No previous studies available for comparison. INDICATIONS : Pain. CONTRAST: 15 cc Omniscan (gadodiamide) IV MEDICAL HISTORY : Hypertension. Renal insufficiency. SURGICAL HISTORY : Cholecystectomy. Tonsillectomy. Right kidney and right rotator cuff. ENCOUNTER: Initial ACUITY: 1 day PAIN SCORE: 6/10 LOCATION: Lower back. TECHNIQUE: Multiplanar multisequence MRI of the lumbar spine was performed with and without contrast. FINDINGS: The most caudal appearing lumbar vertebra is numbered as L5. VERTEBRAE: There is a moderate severity subacute compression injury involving L1 vertebral body with close to 50 % loss of central vertebral body height. There is minimal dorsal retropulsion of the upper aspect of the posterior vertebral body. There is nothing to suggest a pathologic etiology. The vertebrae are ot herwise intact. Alignment is normal CONUS: Normal level and configuration. POST CONTRAST: Other than enhancement within the fractured vertebra, no suspicious enhancement is identified in or a round the canal T12-L1: Slight dorsal retropulsion of the upper aspect of L1 vertebral body with minimal indentation of the t hecal sac Central to slightly left paracentral. L1-L2: The thecal sac has a normal diameter. No evidence of disc bulge or protrusion. The neural foramina are patent bilaterally. L2-L3: The thecal sac has a normal diameter. No evidence of disc bulge or protrusion. The neural foramina are patent bilaterally. L3-L4: Minimal annular disc bulge without focal protrusion, canal or foraminal stenosis. L4-L5: Normal annular disc bulge without focal protrusion, canal or foraminal stenosis. Moderate bilateral p osterior facet arthropathy. L5-S1: The thecal sac has a normal diameter. No evidence of disc bulge or protrusion. The neural foramina are patent bilaterally. Moderate bilateral posterior facet arthropathy. CONCLUSION: Moderate severity subacute compression fracture injury at L1. This lesion does appear amenable to red uction and stabilization with kyphoplasty. Chano Cade MD on December 01, 2017 at 17:53 Board Certified Radiologist. This report was verified electronically.
[2017-12-01 20:41] VITALS: BP 168/76; PULSE 93; RESP 18; TEMP 99.1; O2SAT 96
[2017-12-01] MEDS: LORazepam 1 MG TAB PO PRN (21:20)
[2017-12-02] VITALS: BP 164/74; PULSE 85; RESP 19; TEMP 98.2; O2SAT 97
[2017-12-02 04:59] VITALS: BP 169/80; PULSE 90; RESP 19; TEMP 98.2; O2SAT 96
[2017-12-02] MEDS: LORazepam 1 MG TAB PO PRN ×2 (05:54→20:46)
[2017-12-02] MEDS: KETOROLAC TROMETHAMINE 30 MG/ML (IVP) VIAL IV PUSH PRN ×2 (05:54→12:06)
[2017-12-02] MEDS: cloNIDine HCL 0.1 MG TAB PO PRN (05:54)
[2017-12-02 08:00] VITALS: BP 146/70; PULSE 81; RESP 18; TEMP 98.5; O2SAT 98
[2017-12-02] MEDS ORDERED: POTASSIUM CHLORIDE 10 MEQ CONTROLLED RELEASE TAB PO ONE ×2 (08:15→15:00)
[2017-12-02] MEDS: SODIUM CHLORIDE 0.9% FLUSH 10 ML FLUSH IV FLUSH SCH ×2 (09:00→21:00)
--- NOTE | 2017-12-02 09:07 | HHI.NSPN ---
(Jazmine Avalos) Note Status Status: Progress Note (Jazmine Avalos) Interval History Interval History 11/30: remains painful in the low back, pain worsens with movement. reports to be severely claustrophobic does not feel she can go through an MRI without being put to sleep. 12/02: MRI Lumbar spine completed late yesterday afternoon shows subacute L1 compression fracture amenable to Kyphoplasty. she reports to be doing better however, lumbar pain better and controlled on pain medications. denies focal weakness, radiculopathy, bowel or bladder incontinence, fevers, chills, chest pain, difficulty breathing, SOB. (Jazmine Avalos) Labs, Micro, & Vital Signs Results Date Time Temp Pulse Resp B/P (MAP) Pulse Ox O2 Delivery O2 Flow Rate FiO2 12/02/17 08:00 98.5 81 18 146/70 (95) 98 12/02/17 04:59 98.2 90 19 169/80 (109) 96 12/02/17 00:00 98.2 85 19 164/74 (104) 97 12/01/17 20:41 99.1 93 18 168/76 (106) 96 12/01/17 16:03 98.3 94 18 156/74 (101) 96 12/01/17 12:00 98.3 95 18 192/91 (124) 95 Constitutional Vital Signs Date Time Temp Pulse Resp B/P (MAP) Pulse Ox O2 Delivery O2 Flow Rate FiO2 12/02/17 08:00 98.5 81 18 146/70 (95) 98 12/02/17 04:59 98.2 90 19 169/80 (109) 96 12/02/17 00:00 98.2 85 19 164/74 (104) 97 12/01/17 20:41 99.1 93 18 168/76 (106) 96 12/01/17 16:03 98.3 94 18 156/74 (101) 96 12/01/17 12:00 98.3 95 18 192/91 (124) 95 (Jazmine Avalos) Physical Exam Ms. Greco is alert, awake and oriented to time, place and person. Speech is fluent. Cranial nerve examination: pupils equal, round, and reactive to light. Extra- ocular movements are intact. Facial motor are normal and symmetrical. HEENT: normocephalic. nonicteric sclera. Neck is soft and supple. Musculoskeletal: moves all four extremities well 5/5 Sensory examination is intact to light touch in both the upper and lower extremities Deep tendon reflexes: In the lower extremities, the patellar and Achilles are 1+ , bilaterally. There is a bilateral plantar flexion response. There is no clonus Heart: regular rate Lungs: clear, no wheezing (Jazmine Avalos) Ms. Greco is alert, awake and oriented to time, place and person. Speech is fluent. Cranial nerve examination: pupils equal, round, and reactive to light. Extra- ocular movements are intact. Facial motor are normal and symmetrical. HEENT: normocephalic. nonicteric sclera. Neck is soft and supple. Musculoskeletal: moves all four extremities well 5/5 Sensory examination is intact to light touch in both the upper and lower extremities Deep tendon reflexes: In the lower extremities, the patellar and Achilles are 1+ , bilaterally. There is a bilateral plantar flexion response. There is no clonus Heart: regular rate Lungs: clear, no wheezing (Wesley Mosher MD) Medications Current Medications Current Medications Medications (Trade) Dose Ordered Sig/Faith Route PRN Reason Start Time Stop Time Status Last Admin Dose Admin Sodium Chloride (NS Flush) 2 ml UNSCH PRN IV FLUSH FLUSH AFTER USING IV ACCESS 11/29/17 14:00 Sodium Chloride (NS Flush) 2 ml BID IV FLUSH 11/29/17 21:00 12/01/17 21:25 Acetaminophen (Tylenol) 650 mg Q4H PRN PO TEMP > 100.4 11/29/17 14:00 Ondansetron HCl (Zofran Inj) 4 mg Q6H PRN IVP NAUSEA OR VOMITING 11/29/17 14:00 11/29/17 17:34 Naloxone HCl (Narcan Inj) 0.4 mg UNSCH PRN IV PUSH SEE LABEL COMMENTS 11/29/17 14:00 Sennosides (Senokot) 17.2 mg Q12H PRN PO Moderate constipation 11/29/17 14:00 Ketorolac Tromethamine (Toradol Inj) 15 mg Q6H PRN IV PUSH PAIN SCALE 1 TO 10 11/29/17 14:15 12/02/17 13:59 12/02/17 05:54 Levothyroxine Sodium (Synthroid) 25 mcg DAILY PO 11/30/17 09:00 12/01/17 08:23 Paroxetine HCl (Paxil Cr) 50 mg DAILY PO 11/30/17 09:00 12/01/17 08:23 Losartan Potassium (Cozaar) 25 mg DAILY PO 11/29/17 15:15 12/01/17 08:23 Clonidine (Catapres) 0.1 mg Q6H PRN PO SBP>160, DBP>90 11/29/17 15:15 12/02/17 05:54 Flumazenil (Romazicon Inj) 0.2 mg Q1M PRN IV PUSH SEE LABEL COMMENTS 11/29/17 15:15 Lorazepam (Ativan) 1 mg Q4H PRN PO CIWA 8 - 10 11/29/17 15:15 12/02/17 05:54 Lorazepam (Ativan Inj) 1 mg Q4H PRN IV PUSH CIWA 8 - 10 11/29/17 15:15 11/29/17 17:34 Lorazepam (Ativan) 2 mg Q2H PRN PO CIWA 11-14 11/29/17 15:15 Lorazepam (Ativan Inj) 2 mg Q2H PRN IV PUSH CIWA 11-14 11/29/17 15:15 12/01/17 10:08 Lorazepam (Ativan Inj) 2 mg Q1H PRN IV PUSH CIWA 15-20 11/29/17 15:15 12/01/17 16:25 Lorazepam (Ativan Inj) 2 mg Q15M PRN IV PUSH CIWA > 20 11/29/17 15:15 Lorazepam (Ativan) 0.5 mg Q8H PRN PO anxiety 11/30/17 11:00 12/01/17 06:46 Haloperidol Lactate (Haldol Inj) 2 mg Q8HR PRN IV PUSH ANXIETY /AGITATION 11/30/17 15:00 12/01/17 15:48 Alprazolam (Xanax) 1 mg Q6H PRN PO ANXIETY if refusing ativan 12/01/17 14:00 12/01/17 15:48 (Jazmine Avalos) Current Medications Current Medications Sodium Chloride 1,000 ml @ 200 mls/hr Q5H ONCE IV Last administered on at 10:42; Start 11/29/17 at 10:15; Stop 11/29/17 at 15:14; Status DC Alprazolam (Xanax) 1 mg ONCE ONCE PO Last administered on 11/29/17at 12:52; Start 11/29/17 at 12:45; Stop 11/29/17 at 12:57; Status DC Lorazepam (Ativan Inj) 1 mg ONCE ONCE IV PUSH Last administered on 11/29/17at 13:16; Start 11/29/17 at 13:00; Stop 11/29/17 at 13:01; Status DC Sodium Chloride 1,000 ml @ 100 mls/hr Q10H IV Last administered on 12/01/17at 06:00; Start 11/29/17 at 14:00; Stop 12/01/17 at 10:17; Status DC Sodium Chloride (NS Flush) 2 ml UNSCH PRN IV FLUSH FLUSH AFTER USING IV ACCESS ; Start 11/29/17 at 14:00; Stop 12/08/17 at 13:31; Status DC Sodium Chloride (NS Flush) 2 ml BID IV FLUSH Last administered on 12/08/17at 08: 23; Start 11/29/17 at 21:00; Stop 12/08/17 at 13:31; Status DC Acetaminophen (Tylenol) 650 mg Q4H PRN PO TEMP > 100.4/pain 1 - 10 Last administered on 12/05/17at 02:56; Start 11/29/17 at 14:00; Stop 12/08/17 at 13:31 ; Status DC Ondansetron HCl (Zofran Inj) 4 mg Q6H PRN IVP NAUSEA OR VOMITING Last administered on 11/29/17at 17:34; Start 11/29/17 at 14:00; Stop 12/08/17 at 13:31 ; Status DC Naloxone HCl (Narcan Inj) 0.4 mg UNSCH PRN IV PUSH SEE LABEL COMMENTS; Start at 14:00; Stop 12/08/17 at 13:31; Status DC Sennosides (Senokot) 17.2 mg Q12H PRN PO Moderate constipation; Start 11/29/17 at 14:00; Stop 12/08/17 at 13:31; Status DC Ketorolac Tromethamine (Toradol Inj) 15 mg Q6H PRN IV PUSH PAIN SCALE 1 TO 10 Last administered on 12/02/17at 12:06; Start 11/29/17 at 14:15; Stop 12/02/17 at 13:59; Status DC Levothyroxine Sodium (Synthroid) 25 mcg DAILY PO Last administered on 12/08/17at 08:23; Start 11/30/17 at 09:00; Stop 12/08/17 at 13:31; Status DC Paroxetine HCl (Paxil Cr) 50 mg DAILY PO Last administered on 12/08/17at 08:29; Start 11/30/17 at 09:00; Stop 12/08/17 at 13:31; Status DC Losartan Potassium (Cozaar) 25 mg DAILY PO Last administered on 12/08/17at 08:23 ; Start 11/29/17 at 15:15; Stop 12/08/17 at 13:31; Status DC Clonidine (Catapres) 0.1 mg Q6H PRN PO SBP>160, DBP>90 Last administered on at 05:30; Start 11/29/17 at 15:15; Stop 12/08/17 at 13:31; Status DC Flumazenil (Romazicon Inj) 0.2 mg Q1M PRN IV PUSH SEE LABEL COMMENTS; Start at 15:15; Stop 12/08/17 at 13:31; Status DC Lorazepam (Ativan) 1 mg Q4H PRN PO CIWA 8 - 10 Last administered on 12/03/17at 05:58; Start 11/29/17 at 15:15; Stop 12/03/17 at 12:55; Status DC Lorazepam (Ativan Inj) 1 mg Q4H PRN IV PUSH CIWA 8 - 10 Last administered on at 16:22; Start 11/29/17 at 15:15; Stop 12/03/17 at 12:55; Status DC Lorazepam (Ativan) 2 mg Q2H PRN PO CIWA 11-14; Start 11/29/17 at 15:15; Stop at 12:55; Status DC Lorazepam (Ativan Inj) 2 mg Q2H PRN IV PUSH CIWA 11-14 Last administered on at 10:08; Start 11/29/17 at 15:15; Stop 12/03/17 at 12:55; Status DC Lorazepam (Ativan Inj) 2 mg Q1H PRN IV PUSH CIWA 15-20 Last administered on at 16:25; Start 11/29/17 at 15:15; Stop 12/03/17 at 12:55; Status DC Lorazepam (Ativan Inj) 2 mg Q15M PRN IV PUSH CIWA > 20; Start 11/29/17 at 15:15 ; Stop 12/03/17 at 12:55; Status DC Hydralazine HCl (Apresoline Inj) 20 mg ONCE ONCE IV PUSH Last administered on 11/29/17at 16:04; Start 11/29/17 at 15:15; Stop 11/29/17 at 15:39; Status DC Lorazepam (Ativan) 0.5 mg Q8H PRN PO anxiety Last administered on 12/03/17at 08: 50; Start 11/30/17 at 11:00; Stop 12/03/17 at 12:55; Status DC Alprazolam (Xanax) 1 mg [place] ONCE PO Last administered on 11/30/17at 14:15; Start 11/30/17 at 14:15; Stop 11/30/17 at 14:16; Status DC Haloperidol Lactate (Haldol Inj) 2 mg Q8HR PRN IV PUSH ANXIETY /AGITATION Last administered on 12/04/17at 14:57; Start 11/30/17 at 15:00; Stop 12/08/17 at 13:31; Status DC Potassium Chloride (KCl) 40 meq ONCE ONCE PO Last administered on 12/01/17at 10 :45; Start 12/01/17 at 10:30; Stop 12/01/17 at 10:31; Status DC Alprazolam (Xanax) 1 mg Q8H PRN PO ANXIETY if refusing ativan; Start 12/01/17 at 10:30; Stop 12/01/17 at 13:48; Status DC Alprazolam (Xanax) 1 mg Q6H PRN PO ANXIETY if refusing ativan Last administered on 12/02/17at 09:39; Start 12/01/17 at 14:00; Stop 12/02/17 at 10:51 ; Status DC Diphenhydramine HCl (Benadryl Inj) 25 mg [place] ONCE IM Last administered on 12/01/17at 15:52; Start 12/01/17 at 14:00; Stop 12/01/17 at 14:01; Status DC Gadodiamide (Omniscan Pf Inj) 15 ml STK-MED ONCE IVCONTRAST Last administered on 12/01/17at 17:37; Start 12/01/17 at 17:37; Stop 12/01/17 at 17:38; Status DC Potassium Chloride (KCl) 30 meq ONCE ONCE PO Last administered on 12/02/17at 09 :39; Start 12/02/17 at 08:15; Stop 12/02/17 at 08:16; Status DC Gabapentin (Neurontin) 300 mg TID PO Last administered on 12/08/17at 08:23; Start 12/02/17 at 13:00; Stop 12/08/17 at 13:31; Status DC Potassium Chloride (KCl) 40 meq ONCE ONCE PO Last administered on 12/02/17at 16 :20; Start 12/02/17 at 15:00; Stop 12/02/17 at 15:01; Status DC Tramadol HCl (Ultram) 50 mg Q6H PRN PO pain 2-10 Last administered on at 12:03; Start 12/02/17 at 21:45; Stop 12/05/17 at 15:33; Status DC Ketorolac Tromethamine (Toradol Inj) 15 mg Q6H PRN IM breakthrough pain Last administered on 12/04/17at 20:41; Start 12/02/17 at 21:45; Stop 12/04/17 at 21:44 ; Status DC Alprazolam (Xanax) 0.5 mg Q8H PRN PO anxiety Last administered on 12/04/17at 09 :01; Start 12/03/17 at 13:00; Stop 12/04/17 at 10:01; Status DC Gabapentin (Neurontin) 300 mg TID PO ; Start 12/04/17 at 10:00; Status Cancel Lactulose (Lactulose Liq) 30 ml ONCE ONCE PO Last administered on 12/04/17at 10 :50; Start 12/04/17 at 10:00; Stop 12/04/17 at 10:02; Status DC Alprazolam (Xanax) 0.5 mg Q8H PRN PO preoperative anxiety Last administered on 12/07/17at 21:03; Start 12/05/17 at 09:30; Stop 12/08/17 at 06:00; Status DC Lactated Ringer's 1,000 ml @ 30 mls/hr Q24H PRN IV SEE LABEL COMMENTS; Start at 12:00; Stop 12/08/17 at 11:59; Status DC Sodium Chloride 500 ml @ 30 mls/hr [id number] PRN IV SEE LABEL COMMENTS; Start at 12:00; Stop 12/08/17 at 11:59; Status DC Metoprolol Tartrate (Lopressor) 25 mg [place] PRN PO SEE LABEL COMMENTS; Start 12/05/17 at 12:00; Stop 12/08/17 at 11:59; Status DC Povidone Iodine (Betadine 5% Antisepsis Kit) 1 applic [place] PRN EACH NARE SEE LABEL COMMENTS; Start 12/05/17 at 12:00; Stop 12/08/17 at 11:59; Status DC Chlorhexidine Gluconate (Chlorhexidine 2% Cloth) 3 pack [place] PRN TOPICAL SEE LABEL COMMENTS; Start 12/05/17 at 12:00; Stop 12/08/17 at 11:59; Status DC Acetaminophen/ Hydrocodone Bitart ([place]ola 10-325 Mg) 1 tab Q4H PRN PO PAIN SCALE 1 TO 5 Last administered on 12/05/17at 16:24; Start 12/05/17 at 15:45; Stop 12/05/17 at 18:08; Status DC Acetaminophen/ Hydrocodone Bitart (Viola 10-325 Mg) 2 tab Q4H PRN PO PAIN SCALE 6 TO 10; Start 12/05/17 at 15:45; Stop 12/05/17 at 18:08; Status DC Morphine Sulfate (Morphine Inj) 2 mg Q2HR PRN IV PUSH breakthrough pain; Start 12/05/17 at 15:45; Stop 12/05/17 at 18:08; Status DC Cefazolin Sodium/ Dextrose 50 ml @ 150 mls/hr ONCE ONCE IV Last administered on 12/06/17at 15:40; Start 12/06/17 at 06:00; Stop 12/06/17 at 06:19; Status DC Chlorhexidine Gluconate (Hibiclens 4% Top Soln) 1 applic HS TOP Last administered on 12/07/17at 20:30; Start 12/05/17 at 21:00; Stop 12/07/17 at 21:01 ; Status DC Tramadol HCl (Ultram) 50 mg Q6H PRN PO pain Last administered on 12/08/17at 08:32 ; Start 12/05/17 at 18:15; Stop 12/08/17 at 13:31; Status DC Bupivacaine HCl/ Epinephrine Bitart (Sensorcaine-Epinephrine Pf 0.5% Inj) 30 ml STK-MED ONCE .ROUTE Last administered on 12/06/17at 16:33; Start 12/06/17 at 15: 27; Stop 12/06/17 at 15:28; Status DC Sodium Chloride 1,000 ml @ 100 mls/hr Q10H IV Last administered on 12/06/17at 18:00; Start 12/06/17 at 15:28; Stop 12/08/17 at 13:31; Status DC Cefazolin Sodium/ Dextrose 50 ml @ 100 mls/hr Q8H IV Last administered on 12/07at 17:22; Start 12/07/17 at 00:00; Stop 12/07/17 at 16:29; Status DC Pantoprazole Sodium (Protonix) 40 mg DAILY PO Last administered on 12/08/17at 08: 22; Start 12/07/17 at 09:00; Stop 12/08/17 at 13:31; Status DC Albuterol Sulfate (Albuterol Neb) 2.5 mg Q4HR NEB PRN INH WHEEZING; Start 12/06 at 15:30; Stop 12/08/17 at 13:31; Status DC Midazolam HCl (Versed Inj) 2 mg STK-MED ONCE .ROUTE ; Start 12/06/17 at 16:31; Stop 12/06/17 at 16:32; Status DC Acetaminophen 100 ml @ As Directed STK-MED ONCE IV ; Start 12/06/17 at 16:34; Stop 12/06/17 at 16:35; Status DC Ondansetron HCl (*ZOFRAN INJ PERIprocedural ONLY) 4 mg STK-MED ONCE .ROUTE Last administered on 12/06/17at 17:21; Start 12/06/17 at 17:21; Stop 12/06/17 at 17:22; Status DC Fentanyl Citrate (fentaNYL INJ) 100 mcg STK-MED ONCE .ROUTE ; Start 12/06/17 at 17:36; Stop 12/06/17 at 17:37; Status DC Midazolam HCl (Versed Inj) 4 mg STK-MED ONCE .ROUTE ; Start 12/06/17 at 17:36; Stop 12/06/17 at 17:37; Status DC Sugammadex Sodium (Bridion Inj) 200 mg STK-MED ONCE IV PUSH ; Start 12/06/17 at 17:36; Stop 12/06/17 at 17:37; Status DC Labetalol HCl (Trandate Inj) 100 mg STK-MED ONCE .ROUTE Last administered on at 17:54; Start 12/06/17 at 17:54; Stop 12/06/17 at 17:55; Status DC Miscellaneous Information ALL NURSING DEPARTME... UNSCH PRN .XX SEE LABEL COMMENTS; Start 12/06/17 at 17:11; Stop 12/07/17 at 17:10; Status DC Lidocaine HCl (Xylocaine-Mpf 1% Inj) 5 ml STK-MED ONCE OTHER ; Start 12/06/17 at 12:00; Stop 12/08/17 at 10:43; Status DC Rocuronium [place] (Zemuron Inj) 50 mg STK-MED ONCE IV PUSH ; Start 12/06/17 at 12:00; Stop 12/08/17 at 10:43; Status DC Phenylephrine HCl (Neosynephrine/ NS 1000 Mcg/10ml Syr) 1,000 mcg STK-MED ONCE IV ; Start 12/06/17 at 12:00; Stop 12/08/17 at 10:44; Status DC Ephedrine Sulfate (ePHEDrine/NS 25 MG/5 ML SYR) 25 mg STK-MED ONCE IV ; Start at 12:00; Stop 12/08/17 at 10:44; Status DC Metoprolol Tartrate (Lopressor Inj) 5 mg STK-MED ONCE IV PUSH ; Start 12/06/17 at 12:00; Stop 12/08/17 at 10:44; Status DC Ketorolac Tromethamine (Toradol Inj) 30 mg STK-MED ONCE IV PUSH ; Start at 12:00; Stop 12/08/17 at 10:44; Status DC Dexamethasone Sodium Phosphate (Decadron Inj) 8 mg STK-MED ONCE IV ; Start 12/06 at 12:00; Stop 12/08/17 at 10:44; Status DC Ondansetron HCl (Zofran Inj) 4 mg STK-MED ONCE IV PUSH ; Start 12/06/17 at 12:00 ; Stop 12/08/17 at 10:44; Status DC (Wesley Mosher MD) Medical Decision Making MDM Remarks 72 y/o female s/p fall with intractable back pain, subacute L1 compression fracture Last Impressions Lumbar Spine MRI 12/01/17 0000 Signed Impressions: Service Date/Time: November 16:44 - CONCLUSION: Moderate severity subacute compression fracture injury at L1. This lesion does appear amenable to reduction and stabilization with kyphoplasty. Chano Cade MD Thoracic Spine CT 11/29/17 1014 Signed Impressions: Service Date/Time: Wednesday, November 29, 2017 10:55 - CONCLUSION: 1. No evidence of acute compression deformity or spondylolisthesis in the thoracic spine. 2. Superior endplate compression fracture at L1 with posterior protruding superior cortex indenting the thecal sac. Augustin Simmons MD Lumbar Spine CT 11/29/17 1014 Signed Impressions: Service Date/Time: Wednesday, November 29, 2017 10:55 - CONCLUSION: 1. L1 superior endplate compression fracture with sclerosis and thin fracture lines and retro-pulsed posterior superior cortex indenting on the thecal sac. The neural foramen remain patent. Possible nondisplaced hairline fracture through the left pedicle. 2. Prominent bilateral facet joint hypertrophy at L4-5, greater in severity in the left side with associated neural foraminal stenosis superimposed upon broad-based bulging of the disc. Augustin Simmons MD (Jazmine Avalos) MDM Remarks Caprini Risk Assessment Model Point Value = 1 Point Value = 2 Point Value = 3 Point Value = 5 Age 41-60 Minor surgery BMI > 25 kg/m2 Swollen legs Varicose veins or History of unexplained or recurrent spontaneous Oral contraceptives or hormone replacement Sepsis (< 1 month) Serious lung disease, including pneumonia (< 1 month) Abnormal pulmonary function Acute myocardial infarction Congestive heart failure (< 1 month) History of inflammatory bowel disease Medical patient at bed rest Age 61-74 Arthroscopic surgery Major open surgery (> 45 min) Laparoscopic surgery (> 45 min) Malignancy Confined to bed (> 72 hours) Immobilizing plaster cast Central venous access Age >= 75 History of VTE Family history of VTE Factor V Leiden Prothrombin [id number] Lupus anticoagulant Anticardiolipin antibodies Elevated serum homocysteine Heparin-induced thrombocytopenia Other congenital or acquired thrombophilia Stroke (< 1 month) Elective arthroplasty Hip, pelvis, or leg fracture Acute spinal cord injury (< 1 month) Prophylaxis Regimen Total Risk Factor Score Risk Level Prophylaxis Regimen 0-1 Low Early ambulation 2 Moderate Order ONE of the following: *Sequential Compression Device (SCD) *Heparin 5000 units SQ BID 3-4 Higher Order ONE of the following medications: *Heparin 5000 units SQ TID *Enoxaparin/Lovenox 40 mg SQ daily (WT < 150 kg, CrCl > 30 mL/min) *Enoxaparin/Lovenox 30 mg SQ daily (WT < 150 kg, CrCl > 10-29 mL/min) *Enoxaparin/Lovenox 30 mg SQ BID (WT < 150 kg, CrCl > 30 mL/min) AND/OR *Sequential Compression Device (SCD) 5 or more Highest Order ONE of the following medications: *Heparin 5000 units SQ TID (Preferred with Epidurals) *Enoxaparin/Lovenox 40 mg SQ daily (WT < 150 kg, CrCl > 30 mL/min) *Enoxaparin/Lovenox 30 mg SQ daily (WT < 150 kg, CrCl > 10-29 mL/min) *Enoxaparin/Lovenox 30 mg SQ BID (WT < 150 kg, CrCl > 30 mL/min) AND *Sequential Compression Device (SCD) (Wesley Mosher MD) Plan Plan Remarks MRI Lumbar spine reviewed, TLSO brace ordered, clear OOB with brace and assistance dw patient, she reports pain currently better and controlled with pain medications, dw patient her options of conservative management with TLSO and analgesics vs surgery with Kyphoplasty she requests to think it over and discus with her prior to making her decision if patient requests nonsurgical management, ok to dc home with TLSO brace, if she requests to proceed with surgery, schedule poss on Kyphoplasty update: discussed with her over the phone, he would like for her to proceed with Kyphoplasty next week. dw nursing. (Jazmine Avalos) Attending Statement As above Continue neuro checks. I discussed alternatives of gtreatment including possible kyphoplasty Pulmonary.. Continue aggressive pulmonary toilette, nasotracheal suction, and breathing treatments with nebulizers. Nutrition. NPO Renal. monitor closely urine output, BUN and creatinine Endocrine. Monitor serial Acu checks and SSI as needed in detail ID monitor for signs of infection Protonix for stress ulcer prophylaxis Jeancarlos hose and SCD's for DVT prophylaxis The exam, history, and the medical decision-making described in the above note were completed with the assistance of the mid-level provider. I reviewed and agree with the findings presented. I attest that I had a [id number] encounter with the patient on the same day, and personally performed and documented my assessment and findings in the medical record. (Wesley Mosher MD) Jazmine Avalos Dec 02, 2017 09:07 Wesley Mosher MD Dec 11, 2017 20:41
[2017-12-02] MEDS: PARoxetine 25 MG CONTROLLED RELEASE TAB PO SCH (09:30)
[2017-12-02] MEDS: LOSARTAN 25 MG TAB PO SCH (09:30)
[2017-12-02] MEDS: LEVOTHYROXINE SODIUM 25 MCG TAB PO SCH (09:31)
[2017-12-02] MEDS: ALPRAZolam 1 MG TAB PO PRN (09:39)
--- NOTE | 2017-12-02 11:05 | PD.PSY.CON ---
Provisional Diagnosis Admission Date Nov 29, 2017 at 12:56 [place] I. Adjustment disorder with anxiety, history of generalized anxiety disorder and panic disorder, r/o alcohol use disorder, R/o benzodiazepine use disorder [place] II. Deferred [place] III. Hypothyroidism, hypertension, osteoporosis, lumbar fracture History of Present Illness Service Psychiatry Consult Requested By Medical team Reason for Consult Anxiety Primary Care Physician Sabiha Ashton MD HPI The patient 72-year-old woman, domicile with her in [place], mother of 3 kids, with psychiatric history of anxiety, depression, 1 remote psychiatric hospitalization, alcohol use disorder, she has an established outpatient care with Dr. Pritchard for her anxiety, she is on Xanax 1 mg 3 times a day, also Paxil 50 mg, no previous suicidal attempts, medical history hypothyroidism, hypertension, osteoporosis, who fell about 2 weeks ago while getting the trash out. She had pain that became pretty severe so she went to the emergency room. At that time she was told she had a L1 fracture and was prescribed hydrocodone but did not take it because she was free of "side effects". Patient did have repeat imaging done in thoracic and lumbar spines which do show L1 endplate compression fracture. The patient has been admitted for further evaluation by neurosurgery and for pain control and also due to dehydration. Consulted to psychiatry to manage anxiety. On psychiatric evaluation the patient is calm, cooperative. She reports that today she is feeling much better of her pain. the patient is more under control. Patient says that her anxiety has been increased in frequency, severity and intensity in the hospital primarily due to the pain her medical situation. At the same time she also has been sad due to the same problem. However, she denies hopelessness, denies helplessness, denies anhedonia, denies suicidal and homicidal ideation, she denies visual and auditory hallucinations. She reported that her depression and anxiety have been under control with medication prescribed by Dr. Pritchard, now exacerbated due to the hospitalization and the pain. At this moment she reports good sleep, her appetite was poor during the last days, but improvement since yesterday. Good energy, good level of concentration. She denies intrusive thoughts, recent panic attacks. I note that the patient is having some bilateral tremors, and also some owen tremors, and I asked her if she has been drinking alcohol, at the beginning she denies, but after redirection and reassurance, and after a conversation about the importance of treating a potential alcoholism and the danger of not taking medications for withdrawal, the patient kind of admits that "I take alcohol 3 or 4 times per week, usually 1 or 2 glasses of wine, and also some beers". She reports history of withdrawal in the past, she also reports that she has been in detox and rehabilitation in the past. She denies the use of other substances , and illegal drugs. Review of Systems Constitutional: DENIES: Diaphoretic episodes, Fatigue, Fever, Weight gain, Weight loss, Chills, Dizziness, Change in appetite, Night Sweats Endocrine: DENIES: Abnorml menstrual pattern, Heat/cold intolerance, Polydipsia , Polyuria, Polyphagia Eyes: DENIES: Blurred vision, Diplopia, Eye inflammation, Eye pain, Vision loss , Photosensitivity, Double Vision Ears, nose, mouth, throat: DENIES: Tinnitus, Hearing loss, Vertigo, Nasal discharge, Oral lesions, Throat pain, Hoarseness, Ear Pain, Running Nose, Epistaxis, Sinus Pain, Toothache, Odynophagia Respiratory: DENIES: Apneas, Cough, Snoring, Wheezing, Hemoptysis, Sputum production, Shortness of breath Cardiovascular: DENIES: Chest pain, Palpitations, Syncope, Dyspnea on Exertion , PND, Lower Extremity Edema, Orthopnea, Claudication Genitourinary: DENIES: Abnormal vaginal bleeding, Dysmenorrhea, Dyspareunia, Sexual dysfunction, Urinary frequency, Urinary incontinence, Urgency, Hematuria , Dysuria, Nocturia, Vaginal discharge Musculoskeletal: DENIES: Joint pain, Muscle aches, Stiffness, Joint Swelling, Back pain, Neck pain Integumentary: DENIES: Abnormal pigmentation, Pruritus, Rash, Nail changes, Breast masses, Breast skin changes, Nipple discharge Hematologic/lymphatic: DENIES: Bruising, Lymphadenopathy Immunologic/allergic: DENIES: Eczema, Urticaria Neurologic: DENIES: Abnormal gait, Headache, Localized weakness, Paresthesias, Seizures, Speech Problems, Tremor, Poor Balance Psychiatric: COMPLAINS OF: Anxiety, Depression, DENIES: Confusion, Mood changes , Hallucinations, Agitation, Suicidal Ideation, Homicidal Ideation, Delusions Past Family Social History Coded Allergies: No Known Allergies (Unverified Adverse Reaction, Unknown, 11/29/17) Active Scripts Hydrocodone-Acetaminophen ([place]) 5 Mg-325 Mg Tab, 1 TAB PO Q6H Y for PAIN, #12 TAB 0 Refills Prov:Emely Coburn [facility] [employer] 11/17/17 Reported Medications Alprazolam (Xanax) 1 Mg Tab, 1 MG PO Q6H Y for ANXIETY, TAB 0 Refills 11/29/17 Losartan (Losartan) 25 Mg Tab, PO DAILY for Blood Pressure Management, #15 TAB 0 Refills 11/29/17 Paroxetine (Paxil) 30 Mg Tab, 50 MG PO DAILY, #30 TAB 0 Refills 09/06/17 Alprazolam (Xanax) 1 Mg Tab, 1 MG PO Q6H Y for ANXIETY, TAB 0 Refills 02/25/17 Aspirin (Aspirin Low Dose) 81 Mg Chew, 81 MG CHEW DAILY, TAB 0 Refills 02/25/17 Levothyroxine (Levothyroxine) 25 Mcg Tab, 25 MCG PO DAILY for Thyroid, #30 TAB 0 Refills 02/25/17 Discontinued Reported Medications Lisinopril (Lisinopril) 10 Mg Tab, 10 MG PO DAILY, #30 TAB 0 Refills 02/25/17 Discontinued Scripts Hydrocodone-Acetaminophen (Hydrocodone-Acetaminophen) 5-325 mg Tab, 1 TAB PO Q6H Y for PAIN, #6 TAB 0 Refills Prov:Kristen Borrego DO 11/15/17 Current Medications Medications (Trade) Dose Ordered Sig/Faith Route Start Time Stop Time Status Last Admin (NS Flush) 2 ml UNSCH PRN IV FLUSH 11/29/17 14:00 (NS Flush) 2 ml BID IV FLUSH 11/29/17 21:00 12/02/17 09:00 (Tylenol) 650 mg Q4H PRN PO 11/29/17 14:00 (Zofran Inj) 4 mg Q6H PRN IVP 11/29/17 14:00 11/29/17 17:34 (Narcan Inj) 0.4 mg UNSCH PRN IV PUSH 11/29/17 14:00 (Senokot) 17.2 mg Q12H PRN PO 11/29/17 14:00 (Toradol Inj) 15 mg Q6H PRN IV PUSH 11/29/17 14:15 12/02/17 13:59 12/02/17 05:54 (Synthroid) 25 mcg DAILY PO 11/30/17 09:00 12/02/17 09:31 (Paxil Cr) 50 mg DAILY PO 11/30/17 09:00 12/02/17 09:30 (Cozaar) 25 mg DAILY PO 11/29/17 15:15 12/02/17 09:30 (Catapres) 0.1 mg Q6H PRN PO 11/29/17 15:15 12/02/17 05:54 (Romazicon Inj) 0.2 mg Q1M PRN IV PUSH 11/29/17 15:15 (Ativan) 1 mg Q4H PRN PO 11/29/17 15:15 12/02/17 05:54 (Ativan Inj) 1 mg Q4H PRN IV PUSH 11/29/17 15:15 11/29/17 17:34 (Ativan) 2 mg Q2H PRN PO 11/29/17 15:15 (Ativan Inj) 2 mg Q2H PRN IV PUSH 11/29/17 15:15 12/01/17 10:08 (Ativan Inj) 2 mg Q1H PRN IV PUSH 11/29/17 15:15 12/01/17 16:25 (Ativan Inj) 2 mg Q15M PRN IV PUSH 11/29/17 15:15 (Ativan) 0.5 mg Q8H PRN PO 11/30/17 11:00 12/01/17 06:46 (Haldol Inj) 2 mg Q8HR PRN IV PUSH 11/30/17 15:00 12/01/17 15:48 (Xanax) 1 mg Q6H PRN PO 12/01/17 14:00 12/02/17 09:39 Family Psych History She denies family psychiatric history Social History Patient was born in [place], she lives in [place] with her , she has 3 kids, they are in their 40s, she is supported by senior living benefits, her highest level of education is 4 years of college. Patient's Strengths (min. 2) Outpatient psychiatric care Physical Exam Bilateral tremor, some sweating, Vital Signs Vital Signs Date Time Temp Pulse Resp B/P (MAP) Pulse Ox O2 Delivery O2 Flow Rate FiO2 12/02/17 08:00 98.5 81 18 146/70 (95) 98 Mental Status Examination Appearance: Appropriate Consciousness: Alert Orientation: x4 Motor Activity: Normal gait Speech: Unremarkable Language: Adequate Fund of Knowledge: Adequate Attention and Concentration: Adequate Memory: Unremarkable Mood: Irritable Affect: Irritable, Anxious Thought Process & Associations: Intact Thought Content: Appropriate Hallucination Type: None Delusion Type: None Suicidal Ideation: No Suicidal Plan: No Suicidal Intention: No Homicidal Ideation: No Homicidal Plan: No Homicidal Intention: No Insight: Fair Judgment: Impulsive Assessment & Plan Problem List: (1) Anxiety ICD Codes: F41.9 - Anxiety disorder, unspecified Assessment & Plan: On psychiatric evaluation today the patient reports sad mood , increased anxiety in the last days is the patient is admitted in the hospital , her anxiety and depression, as per patient relates, has increased secondary to pain and reason medical decompensation. She denies anhedonia, she denies hopelessness, she denies helplessness, she reports improved appetite, good level of energy, good sleep at night. She denies suicidal and homicidal ideation, she denies visual and auditory hallucinations. The patient is oriented 3, no fluctuation of consciousness, no attention deficit, no gross cognitive impairment present. She does have bilateral visible tremors, also some sweating, and tongue tremors. Current neuropsychiatric symptoms seems to be related with adjustment as appropriate of her current medical situation. However, even though the patient minimizes her alcohol intake, and seems to be in precontemplation stage, I do think that the patient has clear alcohol and potential benzodiazepine withdrawal denies to be addressed. Continue CIWA protocol. I will avoid benzodiazepines for anxiety as much is possible. I would prefer gabapentin 300 mg 3 times a day since the patient has history of alcohol abuse and Potentially be abusing alcohol currently. Agree with Paxil 50 mg for anxiety and depression. Brief supportive psychotherapy and psychoeducation provided. She does not meet criteria for involuntary psychiatric admission. Consult appreciated. Assessment & Plan Estimated LOS: Joqauin Anderson MD Dec 02, 2017 11:05
[2017-12-02 12:00] VITALS: BP 127/60; PULSE 92; RESP 18; TEMP 97.4; O2SAT 96
[2017-12-02] MEDS: GABAPENTIN 300 MG CAP PO SCH ×2 (12:07→16:21)
[2017-12-02] MEDS ORDERED: XANA1TAB2 PO (14:05)
[2017-12-02] MEDS ORDERED: NORC5TAB PO (14:05)
[2017-12-02] MEDS ORDERED: NEUR300C PO (14:05)
--- NOTE | 2017-12-02 14:06 | HHI.DS ---
Discharge Summary Admission Date Nov 29, 2017 at 12:56 Discharge Date: Dec 02, 2017 Admitting Diagnosis FRACTURE L1, INTRACTABLE PAIN (1) Fracture of L1 vertebra ICD Code: S32.019A - Unspecified fracture of first lumbar vertebra, initial encounter for closed fracture Status: Acute (2) Thyroid disease ICD Code: E07.9 - Disorder of thyroid, unspecified (3) HTN (hypertension) ICD Code: I10 - Essential (primary) hypertension (4) Anxiety ICD Code: F41.9 - Anxiety disorder, unspecified (5) Dehydration ICD Code: E86.0 - Dehydration Procedures none Brief History - From Admission Patient is a 72-year-old female who fell about 2 weeks ago while getting the trash out. She had pain that became pretty severe so she went to the emergency room. At that time she was told she had a L1 fracture and was prescribed hydrocodone but did not take it because she was free of "side effects". She noted Toradol did improve the pain in the past but there was only a one-time dose. Patient then has had increased pain and had not been able to ambulate. She has not had any urinary trouble and no trouble with numbness in the legs. She has had poor oral intake and reports that she feels quite dehydrated. In fact she does have some clinical picture of dehydration with dry mucous membranes. Her blood pressure however is elevated and her electrolytes appear stable at this time. Patient did have repeat imaging done in thoracic and lumbar spines which do show L1 endplate compression fracture. The patient has been admitted for further evaluation by neurosurgery and for pain control CBC/BMP: 12/01/17 0441 12/01/17 0441 Significant Findings Laboratory Tests Test 11/30/17 08:56 12/01/17 04:11 12/01/17 04:41 White Blood Count 11.2 TH/MM3 (4.0-11.0) 11.5 TH/MM3 (4.0-11.0) Neutrophils (%) (Auto) 74.2 % (16.0-70.0) 70.1 % (16.0-70.0) Neutrophils # (Auto) 8.3 TH/MM3 (1.8-7.7) 8.1 TH/MM3 (1.8-7.7) Random Glucose 109 MG/DL (74-106) 109 MG/DL (74-106) Thyroid Stimulating Hormone 3rd Gen 9.110 uIU/ML (0.358-3.740) Calcium Level 8.2 MG/DL (8.5-10.1) Potassium Level 3.3 MEQ/L (3.5-5.1) Imaging Last Impressions Lumbar Spine MRI 12/01/17 0000 Signed Impressions: Service Date/Time: November 16:44 - CONCLUSION: Moderate severity subacute compression fracture injury at L1. This lesion does appear amenable to reduction and stabilization with kyphoplasty. Chano Cade MD Thoracic Spine CT 11/29/17 1014 Signed Impressions: Service Date/Time: Wednesday, November 29, 2017 10:55 - CONCLUSION: 1. No evidence of acute compression deformity or spondylolisthesis in the thoracic spine. 2. Superior endplate compression fracture at L1 with posterior protruding superior cortex indenting the thecal sac. Augustin Simmons MD Lumbar Spine CT 11/29/17 1014 Signed Impressions: Service Date/Time: Wednesday, November 29, 2017 10:55 - CONCLUSION: 1. L1 superior endplate compression fracture with sclerosis and thin fracture lines and retro-pulsed posterior superior cortex indenting on the thecal sac. The neural foramen remain patent. Possible nondisplaced hairline fracture through the left pedicle. 2. Prominent bilateral facet joint hypertrophy at L4-5, greater in severity in the left side with associated neural foraminal stenosis superimposed upon broad-based bulging of the disc. Augustin Simmons MD PE at Discharge GENERAL: This is a well-nourished, well-developed patient, in no apparent distress. SKIN: No rashes, ecchymoses or lesions. Cool and dry. CARDIOVASCULAR: Regular rate and rhythm without murmurs, gallops, or rubs. RESPIRATORY: Clear to auscultation. Breath sounds equal bilaterally. No wheezes , rales, or rhonchi. GASTROINTESTINAL: Abdomen soft, non-tender, nondistended. No hepato-splenomegaly , or palpable masses. No guarding. MUSCULOSKELETAL: Mid back pain, Extremities without clubbing, cyanosis, or edema. No joint tenderness, effusion, or edema noted. No calf tenderness. Negative Homans sign bilaterally. NEUROLOGICAL: Awake and alert. Cranial nerves II through XII intact. Motor and sensory grossly within normal limits. Five out of 5 muscle strength in all muscle groups. Normal speech. Hospital Course Fracture of L1 vertebra Continue with IV nonnarcotic pain regimen Neurosurgery consulted, appreciate recommendations continue conservative management at this time. Patient to have TLSO brace. Also if patient decides for surgery can be done on Tuesday. MRI reviewed Thyroid disease Continue Synthroid HTN (hypertension) Continue with losartan, control pain Continue with IV blood pressure medicine Anxiety Patient does take Paxil and Xanax Dehydration Continue with aggressive IV hydration, follow electrolytes Code Status full code Discussed Condition With patient, nurse Pt Condition on Discharge: Stable Discharge Disposition: Discharge Home Discharge Time: > 30 minutes Discharge Instructions DIET: Follow Instructions for: As Tolerated, No Restrictions Activities you can perform: Regular-No Restrictions Follow up Referrals: Neurosurgery - 1 Week PCP Follow-up - 2-3 Days New Medications: Gabapentin (Neurontin) 300 Mg Cap 300 MG PO TID for neuropathy/pain , #90 CAP Changed Medications: Alprazolam (Xanax) 1 Mg Tab 0.5 MG PO Q8HR PRN for ANXIETY, #10 TAB 0 Refills (Changed from: 1 MG; Q6H) Continued Medications: Aspirin (Aspirin Low Dose) 81 Mg Chew 81 MG CHEW DAILY, TAB 0 Refills Hydrocodone-Acetaminophen ([place]) 5 Mg-325 Mg Tab 1 TAB PO Q6H PRN for PAIN, #20 TAB 0 Refills (This prescription has been renewed ) Levothyroxine (Levothyroxine) 25 Mcg Tab 25 MCG PO DAILY for Thyroid, #30 TAB 0 Refills Losartan (Losartan) 25 Mg Tab Unknown Dose PO DAILY for Blood Pressure Management, #15 TAB 0 Refills Paroxetine (Paxil) 30 Mg Tab 50 MG PO DAILY, #30 TAB 0 Refills Discontinued Medications: Alprazolam (Xanax) 1 Mg Tab 1 MG PO Q6H PRN for ANXIETY, TAB 0 Refills Di Olmos MD Dec 02, 2017 14:06
--- NOTE | 2017-12-02 14:58 | HHI.PR ---
Subjective Remarks The patient is in bed says she has some pain in her back. She is awaiting for Zakiya. Had the MRI yesterday. She is seen to have bowel surgery however she wants to consult her . Less anxious today. Seen by psychiatry as well. No new motor deficit. No nausea, vomiting diarrhea or constipation. Objective Vitals Vital Signs Date Time Temp Pulse Resp B/P (MAP) Pulse Ox O2 Delivery O2 Flow Rate FiO2 12/02/17 12:00 97.4 92 18 127/60 (82) 96 12/02/17 08:00 98.5 81 18 146/70 (95) 98 12/02/17 04:59 98.2 90 19 169/80 (109) 96 12/02/17 00:00 98.2 85 19 164/74 (104) 97 12/01/17 20:41 99.1 93 18 168/76 (106) 96 12/01/17 16:03 98.3 94 18 156/74 (101) 96 I/O 12/01/17 12/01/17 12/01/17 12/02/17 12/02/17 12/02/17 07:00 15:00 23:00 07:00 15:00 23:00 Intake Total 480 ml Balance 480 ml Intake Oral 480 ml # Voids 10 3 # Bowel Movements 3 Result Diagram: 12/01/17 0441 12/01/17 0441 Imaging Last Impressions Lumbar Spine MRI 12/01/17 0000 Signed Impressions: Service Date/Time: November 16:44 - CONCLUSION: Moderate severity subacute compression fracture injury at L1. This lesion does appear amenable to reduction and stabilization with kyphoplasty. Chano Cade MD Thoracic Spine CT 11/29/17 1014 Signed Impressions: Service Date/Time: Wednesday, November 29, 2017 10:55 - CONCLUSION: 1. No evidence of acute compression deformity or spondylolisthesis in the thoracic spine. 2. Superior endplate compression fracture at L1 with posterior protruding superior cortex indenting the thecal sac. Augustin Simmons MD Lumbar Spine CT 11/29/17 1014 Signed Impressions: Service Date/Time: Wednesday, November 29, 2017 10:55 - CONCLUSION: 1. L1 superior endplate compression fracture with sclerosis and thin fracture lines and retro-pulsed posterior superior cortex indenting on the thecal sac. The neural foramen remain patent. Possible nondisplaced hairline fracture through the left pedicle. 2. Prominent bilateral facet joint hypertrophy at L4-5, greater in severity in the left side with associated neural foraminal stenosis superimposed upon broad-based bulging of the disc. Augustin Simmons MD Objective Remarks GENERAL: This is a well-nourished, well-developed patient, in no apparent distress. SKIN: No rashes, ecchymoses or lesions. Cool and dry. CARDIOVASCULAR: Regular rate and rhythm without murmurs, gallops, or rubs. RESPIRATORY: Clear to auscultation. Breath sounds equal bilaterally. No wheezes , rales, or rhonchi. GASTROINTESTINAL: Abdomen soft, non-tender, nondistended. No hepato-splenomegaly , or palpable masses. No guarding. MUSCULOSKELETAL: Mid back pain, Extremities without clubbing, cyanosis, or edema. No joint tenderness, effusion, or edema noted. No calf tenderness. Negative Homans sign bilaterally. NEUROLOGICAL: Awake and alert. Cranial nerves II through XII intact. Motor and sensory grossly within normal limits. Five out of 5 muscle strength in all muscle groups. Normal speech. A/P Problem List: (1) Fracture of L1 vertebra ICD Code: S32.019A - Unspecified fracture of first lumbar vertebra, initial encounter for closed fracture Status: Acute (2) Thyroid disease ICD Code: E07.9 - Disorder of thyroid, unspecified (3) HTN (hypertension) ICD Code: I10 - Essential (primary) hypertension (4) Anxiety ICD Code: F41.9 - Anxiety disorder, unspecified (5) Dehydration ICD Code: E86.0 - Dehydration Assessment and Plan Fracture of L1 vertebra Continue with IV nonnarcotic pain regimen Neurosurgery consulted, appreciate recommendations continue conservative management at this time. Patient to have TLSO brace. Also if patient decides for surgery can be done on Tuesday. MRI reviewed Thyroid disease Continue Synthroid HTN (hypertension) Continue with losartan, control pain Continue with IV blood pressure medicine Anxiety Patient does take Paxil and Xanax Dehydration Continue with aggressive IV hydration, follow electrolytes Code Status full code Discussed Condition With patient, nurse Di Olmos MD Dec 02, 2017 14:58
[2017-12-02 16:00] VITALS: BP 159/84; PULSE 92; RESP 18; TEMP 98.7; O2SAT 97
[2017-12-02] MEDS: LORazepam 2 MG/ML VIAL IV PUSH PRN (16:22)
[2017-12-02 20:00] VITALS: BP 133/60; PULSE 99; RESP 18; TEMP 97.5; O2SAT 97
[2017-12-02] MEDS: traMADol HCL 50 MG TAB PO PRN (22:03)
[2017-12-03] VITALS: BP 158/73; PULSE 104; RESP 20; TEMP 97.9; O2SAT 96
[2017-12-03] MEDS: LORazepam 1 MG TAB PO PRN ×2 (00:17→05:58)
[2017-12-03] MEDS: KETOROLAC TROMETHAMINE 60 MG/2 ML (IM) VIAL IM PRN ×2 (00:18→22:56)
[2017-12-03 04:00] VITALS: BP 144/67; PULSE 89; RESP 18; TEMP 98; O2SAT 95
[2017-12-03] MEDS: traMADol HCL 50 MG TAB PO PRN ×3 (05:58→20:42)
[2017-12-03 08:00] VITALS: BP 139/68; PULSE 87; RESP 18; TEMP 97.7; O2SAT 96
[2017-12-03] MEDS: LORazepam 0.5 MG TAB PO PRN (08:50)
[2017-12-03] MEDS: GABAPENTIN 300 MG CAP PO SCH ×3 (08:52→18:13)
[2017-12-03] MEDS: PARoxetine 25 MG CONTROLLED RELEASE TAB PO SCH (08:52)
[2017-12-03] MEDS: LOSARTAN 25 MG TAB PO SCH (08:52)
[2017-12-03] MEDS: LEVOTHYROXINE SODIUM 25 MCG TAB PO SCH (08:52)
[2017-12-03] MEDS: SODIUM CHLORIDE 0.9% FLUSH 10 ML FLUSH IV FLUSH SCH ×2 (08:53→20:42)
--- NOTE | 2017-12-03 08:54 | HHI.PR ---
Subjective Remarks Not tolerating the brace. Says she has pain however refusing narcotics, takes toradol and feels nauseated. Still with pain . No n/v/d/c. No tremors. Less anxious. No fever or chills. Objective Vitals Vital Signs Date Time Temp Pulse Resp B/P (MAP) Pulse Ox O2 Delivery O2 Flow Rate FiO2 12/03/17 08:00 97.7 87 18 139/68 (91) 96 12/03/17 04:00 98.0 89 18 144/67 (92) 95 12/03/17 00:00 97.9 104 20 158/73 (101) 96 12/02/17 20:00 97.5 99 18 133/60 (84) 97 12/02/17 16:00 98.7 92 18 159/84 (109) 97 12/02/17 12:00 97.4 92 18 127/60 (82) 96 I/O 12/02/17 12/02/17 12/02/17 12/03/17 12/03/17 12/03/17 06:59 14:59 22:59 06:59 14:59 22:59 Intake Total 960 ml Balance 960 ml Intake Oral 960 ml # Voids 3 2 3 # Bowel Movements 3 0 Result Diagram: 12/01/17 0441 12/01/17 0441 Imaging Last Impressions Lumbar Spine MRI 12/01/17 0000 Signed Impressions: Service Date/Time: November 16:44 - CONCLUSION: Moderate severity subacute compression fracture injury at L1. This lesion does appear amenable to reduction and stabilization with kyphoplasty. Chano Cade MD Thoracic Spine CT 11/29/17 1014 Signed Impressions: Service Date/Time: Wednesday, November 29, 2017 10:55 - CONCLUSION: 1. No evidence of acute compression deformity or spondylolisthesis in the thoracic spine. 2. Superior endplate compression fracture at L1 with posterior protruding superior cortex indenting the thecal sac. Augustin Simmons MD Lumbar Spine CT 11/29/17 1014 Signed Impressions: Service Date/Time: Wednesday, November 29, 2017 10:55 - CONCLUSION: 1. L1 superior endplate compression fracture with sclerosis and thin fracture lines and retro-pulsed posterior superior cortex indenting on the thecal sac. The neural foramen remain patent. Possible nondisplaced hairline fracture through the left pedicle. 2. Prominent bilateral facet joint hypertrophy at L4-5, greater in severity in the left side with associated neural foraminal stenosis superimposed upon broad-based bulging of the disc. Augustin Simmons MD Objective Remarks GENERAL: This is a well-nourished, well-developed patient, in no apparent distress. SKIN: No rashes, ecchymoses or lesions. Cool and dry. CARDIOVASCULAR: Regular rate and rhythm without murmurs, gallops, or rubs. RESPIRATORY: Clear to auscultation. Breath sounds equal bilaterally. No wheezes , rales, or rhonchi. GASTROINTESTINAL: Abdomen soft, non-tender, nondistended. No hepato-splenomegaly , or palpable masses. No guarding. MUSCULOSKELETAL: Mid back pain, Extremities without clubbing, cyanosis, or edema. No joint tenderness, effusion, or edema noted. No calf tenderness. Negative Homans sign bilaterally. NEUROLOGICAL: Awake and alert. Cranial nerves II through XII intact. Motor and sensory grossly within normal limits. Five out of 5 muscle strength in all muscle groups. Normal speech. Procedures none A/P Problem List: (1) Fracture of L1 vertebra ICD Code: S32.019A - Unspecified fracture of first lumbar vertebra, initial encounter for closed fracture Status: Acute (2) Thyroid disease ICD Code: E07.9 - Disorder of thyroid, unspecified (3) HTN (hypertension) ICD Code: I10 - Essential (primary) hypertension (4) Anxiety ICD Code: F41.9 - Anxiety disorder, unspecified (5) Dehydration ICD Code: E86.0 - Dehydration Assessment and Plan Fracture of L1 vertebra Continue with IV nonnarcotic pain regimen Neurosurgery consulted, appreciate recommendations continue conservative management at this time. had MRI. patient with L1 vertebral fracture patient with anxiety, pretreated before MRI plan for kyphoplasty on Tuesday, Dr Mosher Thyroid disease Continue Synthroid HTN (hypertension) Continue with losartan, control pain Continue with IV blood pressure medicine Anxiety Patient does take Paxil and Xanax. on ciwa protocol Consult psych, appreciate recommendations Dehydration Continue with aggressive IV hydration, follow electrolytes Code Status full code Discussed Condition With patient, nurse Di Olmos MD Dec 03, 2017 08:54
[2017-12-03 11:02] LABS: AUTOMATED NEUTROPHIL # 6.8 TH/MM3 (1.8-7.7); BASOPHIL # 0.1 TH/MM3 (0-0.2); BASOPHIL % 0.6 % (0.0-2.0); EOSINOPHIL # 0.4 TH/MM3 (0-0.4); EOSINOPHIL % 3.3 % (0.0-4.0); HEMATOCRIT 40.9 % (35.0-46.0); LYMPHOCYTE # 2.9 TH/MM3 (1.0-4.8); MEAN CELL VOLUME 88.8 FL (80.0-100.0); MEAN CORPUSCULAR HEMOGLOBIN 30.3 PG (27.0-34.0); MEAN CORPUSCULAR HGB CONC 34.1 % (32.0-36.0); MEAN PLATELET VOLUME 9.8 FL (7.0-11.0); MONO % 8.3 % (0.0-8.0); MONOCYTE # 0.9 TH/MM3 (0-0.9); NEUT % 61.8 % (16.0-70.0); PLATELET COUNT 268 TH/MM3 (150-450); RED BLOOD COUNT 4.61 MIL/MM3 (4.00-5.30); RED CELL DISTRIBUTION WIDTH 14.1 % (11.6-17.2)
[2017-12-03 11:22] LABS: BICARBONATE 26.2 MEQ/L (21.0-32.0); CALCIUM 8.9 MG/DL (8.5-10.1); CREATININE 0.75 MG/DL (0.50-1.00); MAGNESIUM 1.9 MG/DL (1.5-2.5)
[2017-12-03 12:00] VITALS: BP 146/78; PULSE 101; RESP 18; TEMP 97.6; O2SAT 96
[2017-12-03] MEDS: ALPRAZolam 0.5 MG TAB PO PRN ×2 (13:08→20:42)
--- NOTE | 2017-12-03 15:34 | HHI.NSPN ---
History Chief Complaint: low back pain. Interval History 12/03/17: Pt complains of low back pain. No radiculopathy in LEs. She is ambulating to the bathroom with her TLSO brace. She states she wants to proceed with surgery with Dr. Mosher on Tuesday. Review of Systems General: Negative for: fever, chills, insomnia Respiratory: Negative for: shortness of breath, cough, sputum Cardiovascular: Negative for: chest pain Gastrointestinal: Negative for: nausea, vomitting, diarrhea, constipation Exam Results Vital Signs Date Time Temp Pulse Resp B/P (MAP) Pulse Ox O2 Delivery O2 Flow Rate FiO2 12/03/17 12:00 97.6 101 18 146/78 (100) 96 Physical Examination General: Pt awake and alert complaining of low back pain. Eyes: Pupils equal. Sclera anicteric. Resp: CTA bilaterally. Heart: NSR no murmurs. Abd: Soft positive bs. Skin: No cyanosis or erythema. Muscle: Moves all 4 extremities with good strength. Neuro: Pt awake and alert. Follows commands well. Speech clear and appropriate. Sensation in LEs intact to light touch. Lab, Micro, Other Results Last Impressions Lumbar Spine MRI 12/01/17 0000 Signed Impressions: Service Date/Time: November 16:44 - CONCLUSION: Moderate severity subacute compression fracture injury at L1. This lesion does appear amenable to reduction and stabilization with kyphoplasty. Chano Cade MD Thoracic Spine CT 11/29/17 1014 Signed Impressions: Service Date/Time: Wednesday, November 29, 2017 10:55 - CONCLUSION: 1. No evidence of acute compression deformity or spondylolisthesis in the thoracic spine. 2. Superior endplate compression fracture at L1 with posterior protruding superior cortex indenting the thecal sac. Augustin Simmons MD Lumbar Spine CT 11/29/17 1014 Signed Impressions: Service Date/Time: Wednesday, November 29, 2017 10:55 - CONCLUSION: 1. L1 superior endplate compression fracture with sclerosis and thin fracture lines and retro-pulsed posterior superior cortex indenting on the thecal sac. The neural foramen remain patent. Possible nondisplaced hairline fracture through the left pedicle. 2. Prominent bilateral facet joint hypertrophy at L4-5, greater in severity in the left side with associated neural foraminal stenosis superimposed upon broad-based bulging of the disc. Augustin Simmons MD Laboratory Tests Test 12/03/17 08:35 White Blood Count 11.0 TH/MM3 Red Blood Count 4.61 MIL/MM3 Hemoglobin 14.0 GM/DL Hematocrit 40.9 % Mean Corpuscular Volume 88.8 FL Mean Corpuscular Hemoglobin 30.3 PG Mean Corpuscular Hemoglobin Concent 34.1 % Red Cell Distribution Width 14.1 % Platelet Count 268 TH/MM3 Mean Platelet Volume 9.8 FL Neutrophils (%) (Auto) 61.8 % Lymphocytes (%) (Auto) 26.0 % Monocytes (%) (Auto) 8.3 % Eosinophils (%) (Auto) 3.3 % Basophils (%) (Auto) 0.6 % Neutrophils # (Auto) 6.8 TH/MM3 Lymphocytes # (Auto) 2.9 TH/MM3 Monocytes # (Auto) 0.9 TH/MM3 Eosinophils # (Auto) 0.4 TH/MM3 Basophils # (Auto) 0.1 TH/MM3 CBC Comment DIFF FINAL Differential Comment Blood Urea Nitrogen 17 MG/DL Creatinine 0.75 MG/DL Random Glucose 82 MG/DL Calcium Level 8.9 MG/DL Magnesium Level 1.9 MG/DL Sodium Level 136 MEQ/L Potassium Level 4.2 MEQ/L Chloride Level 102 MEQ/L Carbon Dioxide Level 26.2 MEQ/L Anion Gap 8 MEQ/L Estimat Glomerular Filtration Rate 76 ML/MIN Medical Decision Making Impression and Plan A: 72 y/o FM with L1 compression fracture P: Continue with pain control Dr. Mosher planning on kyphoplasty on Tuesday. Bhaskar Harrison Dec 03, 2017 3:34 pm
[2017-12-03 16:00] VITALS: BP 116/59; PULSE 90; RESP 19; TEMP 98.1; O2SAT 97
[2017-12-03 21:45] VITALS: BP 146/71; PULSE 80; RESP 16; TEMP 98.3; O2SAT 96
[2017-12-03] MEDS: ACETAMINOPHEN 325 MG TAB PO PRN (22:57)
[2017-12-04] VITALS (7 sets, daily range): BP systolic 122–178; BP diastolic 73–88; PULSE 68–96; RESP 17–19; TEMP 97.1–98; O2SAT 93–98
[2017-12-04] MEDS: traMADol HCL 50 MG TAB PO PRN ×3 (02:30→18:27)
[2017-12-04] MEDS: KETOROLAC TROMETHAMINE 60 MG/2 ML (IM) VIAL IM PRN ×3 (06:14→20:41)
[2017-12-04] MEDS: LOSARTAN 25 MG TAB PO SCH (08:56)
[2017-12-04] MEDS: GABAPENTIN 300 MG CAP PO SCH ×3 (08:57→18:27)
[2017-12-04] MEDS: LEVOTHYROXINE SODIUM 25 MCG TAB PO SCH (08:57)
[2017-12-04] MEDS: PARoxetine 25 MG CONTROLLED RELEASE TAB PO SCH (08:57)
[2017-12-04] MEDS: SODIUM CHLORIDE 0.9% FLUSH 10 ML FLUSH IV FLUSH SCH ×2 (09:00→20:40)
[2017-12-04] MEDS: ALPRAZolam 0.5 MG TAB PO PRN (09:01)
[2017-12-04] MEDS ORDERED: GABAPENTIN 300 MG CAP PO SCH (10:00)
[2017-12-04] MEDS ORDERED: LACTULOSE SYRUP 20 GM/30 ML CUP PO ONE (10:00)
--- NOTE | 2017-12-04 10:07 | HHI.PR ---
Subjective Remarks f/u for fracture patient stated she needs xanax for her agoraphobia. she stated the pharmacist told her that works best. patient stated she is a very anxious person. pain controlled. she stated she is shaking inside. no other complaints. discussed case with patient's nurse. no events overnight. Objective Vitals Vital Signs Date Time Temp Pulse Resp B/P (MAP) Pulse Ox O2 Delivery O2 Flow Rate FiO2 12/04/17 08:00 97.4 89 18 174/81 (112) 96 12/04/17 06:40 98.0 68 19 122/80 (94) 96 12/04/17 00:00 97.7 78 17 132/74 (93) 96 12/03/17 21:45 98.3 80 16 146/71 (96) 96 12/03/17 16:00 98.1 90 19 116/59 (78) 97 12/03/17 14:11 18 12/03/17 12:00 97.6 101 18 146/78 (100) 96 I/O 12/03/17 12/03/17 12/03/17 12/04/17 12/04/17 12/04/17 07:00 15:00 23:00 07:00 15:00 23:00 Intake Total 800 ml 700 ml Balance 800 ml 700 ml Intake Oral 800 ml 700 ml # Voids 3 7 4 # Bowel Movements 0 0 Result Diagram: 12/03/17 0835 12/03/17 0835 Objective Remarks GENERAL: in NAD CARDIOVASCULAR: Regular rate and rhythm without murmurs, gallops, or rubs. RESPIRATORY: Breath sounds equal bilaterally. No accessory muscle use. GASTROINTESTINAL: Abdomen soft, non-tender, nondistended. NEURO: No tremors noted. She is AAO 3. Procedures none Medications and IVs Current Medications Sodium Chloride 1,000 ml @ 200 mls/hr Q5H ONCE IV Last administered on at 10:42; Start 11/29/17 at 10:15; Stop 11/29/17 at 15:14; Status DC Alprazolam (Xanax) 1 mg ONCE ONCE PO Last administered on 11/29/17at 12:52; Start 11/29/17 at 12:45; Stop 11/29/17 at 12:57; Status DC Lorazepam (Ativan Inj) 1 mg ONCE ONCE IV PUSH Last administered on 11/29/17 13:16; Start 11/29/17 at 13:00; Stop 11/29/17 at 13:01; Status DC Sodium Chloride 1,000 ml @ 100 mls/hr Q10H IV Last administered on 12/01/17at 06:00; Start 11/29/17 at 14:00; Stop 12/01/17 at 10:17; Status DC Sodium Chloride (NS Flush) 2 ml UNSCH PRN IV FLUSH FLUSH AFTER USING IV ACCESS ; Start 11/29/17 at 14:00 Sodium Chloride (NS Flush) 2 ml BID IV FLUSH Last administered on 12/03/17at 20: 42; Start 11/29/17 at 21:00 Acetaminophen (Tylenol) 650 mg Q4H PRN PO TEMP > 100.4/pain 1 - 10 Last administered on 12/03/17 22:57; Start 11/29/17 at 14:00 Ondansetron HCl (Zofran Inj) 4 mg Q6H PRN IVP NAUSEA OR VOMITING Last administered on 11/29/17at 17:34; Start 11/29/17 at 14:00 Naloxone HCl (Narcan Inj) 0.4 mg UNSCH PRN IV PUSH SEE LABEL COMMENTS; Start at 14:00 Sennosides (Senokot) 17.2 mg Q12H PRN PO Moderate constipation; Start 11/29/17 at 14:00 Ketorolac Tromethamine (Toradol Inj) 15 mg Q6H PRN IV PUSH PAIN SCALE 1 TO 10 Last administered on 12/02/17at 12:06; Start 11/29/17 at 14:15; Stop 12/02/17 at 13:59; Status DC Levothyroxine Sodium (Synthroid) 25 mcg DAILY PO Last administered on 08:57; Start 11/30/17 at 09:00 Paroxetine HCl (Paxil Cr) 50 mg DAILY PO Last administered on 12/04/17 08:57; Start 11/30/17 at 09:00 Losartan Potassium (Cozaar) 25 mg DAILY PO Last administered on 12/04/17 08:56 ; Start 11/29/17 at 15:15 Clonidine (Catapres) 0.1 mg Q6H PRN PO SBP>160, DBP>90 Last administered on at 05:54; Start 11/29/17 at 15:15 Flumazenil (Romazicon Inj) 0.2 mg Q1M PRN IV PUSH SEE LABEL COMMENTS; Start at 15:15 Lorazepam (Ativan) 1 mg Q4H PRN PO CIWA 8 - 10 Last administered on 12/03/17at 05:58; Start 11/29/17 at 15:15; Stop 12/03/17 at 12:55; Status DC Lorazepam (Ativan Inj) 1 mg Q4H PRN IV PUSH CIWA 8 - 10 Last administered on at 16:22; Start 11/29/17 at 15:15; Stop 12/03/17 at 12:55; Status DC Lorazepam (Ativan) 2 mg Q2H PRN PO CIWA 11-14; Start 11/29/17 at 15:15; Stop at 12:55; Status DC Lorazepam (Ativan Inj) 2 mg Q2H PRN IV PUSH CIWA 11-14 Last administered on at 10:08; Start 11/29/17 at 15:15; Stop 12/03/17 at 12:55; Status DC Lorazepam (Ativan Inj) 2 mg Q1H PRN IV PUSH CIWA 15-20 Last administered on at 16:25; Start 11/29/17 at 15:15; Stop 12/03/17 at 12:55; Status DC Lorazepam (Ativan Inj) 2 mg Q15M PRN IV PUSH CIWA > 20; Start 11/29/17 at 15:15 ; Stop 12/03/17 at 12:55; Status DC Hydralazine HCl (Apresoline Inj) 20 mg ONCE ONCE IV PUSH Last administered on 11/29/17at 16:04; Start 11/29/17 at 15:15; Stop 11/29/17 at 15:39; Status DC Lorazepam (Ativan) 0.5 mg Q8H PRN PO anxiety Last administered on 12/03/17at 08: 50; Start 11/30/17 at 11:00; Stop 12/03/17 at 12:55; Status DC Alprazolam (Xanax) 1 mg FOOD E[employer]IPMENT SERVICE TECHNICIAN ONCE PO Last administered on 11/30/17at 14:15; Start 11/30/17 at 14:15; Stop 11/30/17 at 14:16; Status DC Haloperidol Lactate (Haldol Inj) 2 mg Q8HR PRN IV PUSH ANXIETY /AGITATION Last administered on 12/01/17at 15:48; Start 11/30/17 at 15:00 Potassium Chloride (KCl) 40 meq ONCE ONCE PO Last administered on 12/01/17at 10 :45; Start 12/01/17 at 10:30; Stop 12/01/17 at 10:31; Status DC Alprazolam (Xanax) 1 mg Q8H PRN PO ANXIETY if refusing ativan; Start 12/01/17 at 10:30; Stop 12/01/17 at 13:48; Status DC Alprazolam (Xanax) 1 mg Q6H PRN PO ANXIETY if refusing ativan Last administered on 12/02/17at 09:39; Start 12/01/17 at 14:00; Stop 12/02/17 at 10:51 ; Status DC Diphenhydramine HCl (Benadryl Inj) 25 mg [employer]OD EQUIPMENT SERVICE TECHNICIAN ONCE IM Last administered on 12/01/17at 15:52; Start 12/01/17 at 14:00; Stop 12/01/17 at 14:01; Status DC Gadodiamide (Omniscan Pf Inj) 15 ml STK-MED ONCE IVCONTRAST Last administered on 12/01/17at 17:37; Start 12/01/17 at 17:37; Stop 12/01/17 at 17:38; Status DC Potassium Chloride (KCl) 30 meq ONCE ONCE PO Last administered on 12/02/17at 09 :39; Start 12/02/17 at 08:15; Stop 12/02/17 at 08:16; Status DC Gabapentin (Neurontin) 300 mg TID PO Last administered on 12/04/17at 08:57; Start 12/02/17 at 13:00 Potassium Chloride (KCl) 40 meq ONCE ONCE PO Last administered on 12/02/17at 16 :20; Start 12/02/17 at 15:00; Stop 12/02/17 at 15:01; Status DC Tramadol HCl (Ultram) 50 mg Q6H PRN PO pain 2-10 Last administered on at 08:57; Start 12/02/17 at 21:45 Ketorolac Tromethamine (Toradol Inj) 15 mg Q6H PRN IM breakthrough pain Last administered on 12/04/17at 06:14; Start 12/02/17 at 21:45; Stop 12/04/17 at 21:44 Alprazolam (Xanax) 0.5 mg Q8H PRN PO anxiety Last administered on 12/04/17at 09 :01; Start 12/03/17 at 13:00 A/P Problem List: (1) Fracture of L1 vertebra ICD Code: S32.019A - Unspecified fracture of first lumbar vertebra, initial encounter for closed fracture Status: Acute (2) Thyroid disease ICD Code: E07.9 - Disorder of thyroid, unspecified (3) HTN (hypertension) ICD Code: I10 - Essential (primary) hypertension (4) Anxiety ICD Code: F41.9 - Anxiety disorder, unspecified (5) Dehydration ICD Code: E86.0 - Dehydration Assessment and Plan Fracture of L1 vertebra Continue with IV nonnarcotic pain regimen Neurosurgery consulted, appreciate recommendations continue conservative management at this time. had MRI. patient with L1 vertebral fracture patient with anxiety, pretreated before MRI plan for kyphoplasty on Tuesday, Dr Mosher Thyroid disease Continue Synthroid HTN (hypertension) Continue with losartan, control pain Continue with IV blood pressure medicine Anxiety Patient does take Paxil. Psychiatrist was consulted. Recommendation was to avoid benzos. Will DC Xanax. Patient was put on gabapentin yesterday. Continue with gabapentin. There are no signs of alcoholic withdrawals. Patient is requesting Xanax. I educated patient on use and psychiatrist recommendations. Dehydration Continue with aggressive IV hydration, follow electrolytes Code Status full code Discharge Planning Patient scheduled for kyphoplasty on Tuesday. Priya Truong MD Dec 04, 2017 10:07
[2017-12-04] MEDS: HALOPERIDOL LACTATE 5 MG/ML AMP IV PUSH PRN (14:57)
[2017-12-04] MEDS: cloNIDine HCL 0.1 MG TAB PO PRN (20:40)
[2017-12-05] VITALS: BP 136/68; PULSE 87; RESP 18; TEMP 97.5; O2SAT 96
[2017-12-05] MEDS: traMADol HCL 50 MG TAB PO PRN ×4 (00:15→23:04)
[2017-12-05] MEDS: ACETAMINOPHEN 325 MG TAB PO PRN (02:56)
[2017-12-05 04:00] VITALS: BP 141/75; PULSE 90; RESP 18; TEMP 97.8; O2SAT 95
[2017-12-05 08:27] VITALS: BP 173/85; PULSE 87; RESP 16; TEMP 97.9; O2SAT 94
[2017-12-05] MEDS: SODIUM CHLORIDE 0.9% FLUSH 10 ML FLUSH IV FLUSH SCH ×2 (08:57→20:34)
[2017-12-05] MEDS: LEVOTHYROXINE SODIUM 25 MCG TAB PO SCH (08:57)
[2017-12-05] MEDS: PARoxetine 25 MG CONTROLLED RELEASE TAB PO SCH (08:57)
[2017-12-05] MEDS: GABAPENTIN 300 MG CAP PO SCH ×3 (08:57→17:25)
[2017-12-05] MEDS: LOSARTAN 25 MG TAB PO SCH (08:57)
[2017-12-05] MEDS: cloNIDine HCL 0.1 MG TAB PO PRN (08:57)
--- NOTE | 2017-12-05 09:54 | HHI.PR ---
Subjective Remarks f/u for anxiety and back pain patient c/o being off of benzos. She stated that her pharmacist told her that xanax is a treatment of choice for agoraphobia. she has no complaints. Objective Vitals Vital Signs Date Time Temp Pulse Resp B/P (MAP) Pulse Ox O2 Delivery O2 Flow Rate FiO2 12/05/17 08:27 97.9 87 16 173/85 (114) 94 12/05/17 04:00 97.8 90 18 141/75 (97) 95 12/05/17 00:00 97.5 87 18 136/68 (90) 96 12/04/17 20:00 97.8 88 18 176/86 (116) 98 12/04/17 18:28 156/73 (100) 12/04/17 16:00 97.1 96 18 178/84 (115) 93 12/04/17 14:30 19 12/04/17 12:00 97.7 89 18 155/88 (110) 95 12/04/17 09:57 19 I/O 12/04/17 12/04/17 12/04/17 12/05/17 12/05/17 12/05/17 07:00 15:00 23:00 07:00 15:00 23:00 Intake Total 700 ml Balance 700 ml Intake Oral 700 ml # Voids 4 1 # Bowel Movements 0 1 Result Diagram: 12/03/17 0835 12/03/17 0835 Objective Remarks GENERAL: in NAD CARDIOVASCULAR: Regular rate and rhythm without murmurs, gallops, or rubs. RESPIRATORY: Breath sounds equal bilaterally. No accessory muscle use. GASTROINTESTINAL: Abdomen soft, non-tender, nondistended. NEURO: No tremors noted. She is AAO 3. Procedures none Medications and IVs Current Medications Sodium Chloride 1,000 ml @ 200 mls/hr Q5H ONCE IV Last administered on at 10:42; Start 11/29/17 at 10:15; Stop 11/29/17 at 15:14; Status DC Alprazolam (Xanax) 1 mg ONCE ONCE PO Last administered on 11/29/17at 12:52; Start 11/29/17 at 12:45; Stop 11/29/17 at 12:57; Status DC Lorazepam (Ativan Inj) 1 mg ONCE ONCE IV PUSH Last administered on 11/29/17at 13:16; Start 11/29/17 at 13:00; Stop 11/29/17 at 13:01; Status DC Sodium Chloride 1,000 ml @ 100 mls/hr Q10H IV Last administered on 12/01/17at 06:00; Start 11/29/17 at 14:00; Stop 12/01/17 at 10:17; Status DC Sodium Chloride (NS Flush) 2 ml UNSCH PRN IV FLUSH FLUSH AFTER USING IV ACCESS ; Start 11/29/17 at 14:00 Sodium Chloride (NS Flush) 2 ml BID IV FLUSH Last administered on 12/05/17at 08: 57; Start 11/29/17 at 21:00 Acetaminophen (Tylenol) 650 mg Q4H PRN PO TEMP > 100.4/pain 1 - 10 Last administered on 12/05/17at 02:56; Start 11/29/17 at 14:00 Ondansetron HCl (Zofran Inj) 4 mg Q6H PRN IVP NAUSEA OR VOMITING Last administered on 11/29/17at 17:34; Start 11/29/17 at 14:00 Naloxone HCl (Narcan Inj) 0.4 mg UNSCH PRN IV PUSH SEE LABEL COMMENTS; Start at 14:00 Sennosides (Senokot) 17.2 mg Q12H PRN PO Moderate constipation; Start 11/29/17 at 14:00 Ketorolac Tromethamine (Toradol Inj) 15 mg Q6H PRN IV PUSH PAIN SCALE 1 TO 10 Last administered on 12/02/17at 12:06; Start 11/29/17 at 14:15; Stop 12/02/17 at 13:59; Status DC Levothyroxine Sodium (Synthroid) 25 mcg DAILY PO Last administered on at 08:57; Start 11/30/17 at 09:00 Paroxetine HCl (Paxil Cr) 50 mg DAILY PO Last administered on 12/05/17 08:57; Start 11/30/17 at 09:00 Losartan Potassium (Cozaar) 25 mg DAILY PO Last administered on 12/05/17at 08:57 ; Start 11/29/17 at 15:15 Clonidine (Catapres) 0.1 mg Q6H PRN PO SBP>160, DBP>90 Last administered on at 08:57; Start 11/29/17 at 15:15 Flumazenil (Romazicon Inj) 0.2 mg Q1M PRN IV PUSH SEE LABEL COMMENTS; Start at 15:15 Lorazepam (Ativan) 1 mg Q4H PRN PO CIWA 8 - 10 Last administered on 12/03/17at 05:58; Start 11/29/17 at 15:15; Stop 12/03/17 at 12:55; Status DC Lorazepam (Ativan Inj) 1 mg Q4H PRN IV PUSH CIWA 8 - 10 Last administered on at 16:22; Start 11/29/17 at 15:15; Stop 12/03/17 at 12:55; Status DC Lorazepam (Ativan) 2 mg Q2H PRN PO CIWA 11-14; Start 11/29/17 at 15:15; Stop at 12:55; Status DC Lorazepam (Ativan Inj) 2 mg Q2H PRN IV PUSH CIWA 11-14 Last administered on at 10:08; Start 11/29/17 at 15:15; Stop 12/03/17 at 12:55; Status DC Lorazepam (Ativan Inj) 2 mg Q1H PRN IV PUSH CIWA 15-20 Last administered on at 16:25; Start 11/29/17 at 15:15; Stop 12/03/17 at 12:55; Status DC Lorazepam (Ativan Inj) 2 mg Q15M PRN IV PUSH CIWA > 20; Start 11/29/17 at 15:15 ; Stop 12/03/17 at 12:55; Status DC Hydralazine HCl (Apresoline Inj) 20 mg ONCE ONCE IV PUSH Last administered on 11/29/17at 16:04; Start 11/29/17 at 15:15; Stop 11/29/17 at 15:39; Status DC Lorazepam (Ativan) 0.5 mg Q8H PRN PO anxiety Last administered on 12/03/17at 08: 50; Start 11/30/17 at 11:00; Stop 12/03/17 at 12:55; Status DC Alprazolam (Xanax) 1 mg MONEY COUNTER ONCE PO Last administered on 11/30/17at 14:15; Start 11/30/17 at 14:15; Stop 11/30/17 at 14:16; Status DC Haloperidol Lactate (Haldol Inj) 2 mg Q8HR PRN IV PUSH ANXIETY /AGITATION Last administered on 12/04/17at 14:57; Start 11/30/17 at 15:00 Potassium Chloride (KCl) 40 meq ONCE ONCE PO Last administered on 12/01/17at 10 :45; Start 12/01/17 at 10:30; Stop 12/01/17 at 10:31; Status DC Alprazolam (Xanax) 1 mg Q8H PRN PO ANXIETY if refusing ativan; Start 12/01/17 at 10:30; Stop 12/01/17 at 13:48; Status DC Alprazolam (Xanax) 1 mg Q6H PRN PO ANXIETY if refusing ativan Last administered on 12/02/17at 09:39; Start 12/01/17 at 14:00; Stop 12/02/17 at 10:51 ; Status DC Diphenhydramine HCl (Benadryl Inj) 25 mg MONEY COUNTER ONCE IM Last administered on 12/01/17at 15:52; Start 12/01/17 at 14:00; Stop 12/01/17 at 14:01; Status DC Gadodiamide (Omniscan Pf Inj) 15 ml STK-MED ONCE IVCONTRAST Last administered on 12/01/17at 17:37; Start 12/01/17 at 17:37; Stop 12/01/17 at 17:38; Status DC Potassium Chloride (KCl) 30 meq ONCE ONCE PO Last administered on 12/02/17at 09 :39; Start 12/02/17 at 08:15; Stop 12/02/17 at 08:16; Status DC Gabapentin (Neurontin) 300 mg TID PO Last administered on 12/05/17at 08:57; Start 12/02/17 at 13:00 Potassium Chloride (KCl) 40 meq ONCE ONCE PO Last administered on 12/02/17at 16 :20; Start 12/02/17 at 15:00; Stop 12/02/17 at 15:01; Status DC Tramadol HCl (Ultram) 50 mg Q6H PRN PO pain 2-10 Last administered on at 06:05; Start 12/02/17 at 21:45 Ketorolac Tromethamine (Toradol Inj) 15 mg Q6H PRN IM breakthrough pain Last administered on 12/04/17at 20:41; Start 12/02/17 at 21:45; Stop 12/04/17 at 21:44 ; Status DC Alprazolam (Xanax) 0.5 mg Q8H PRN PO anxiety Last administered on 12/04/17at 09 :01; Start 12/03/17 at 13:00; Stop 12/04/17 at 10:01; Status DC Gabapentin (Neurontin) 300 mg TID PO ; Start 12/04/17 at 10:00; Status Cancel Lactulose (Lactulose Liq) 30 ml ONCE ONCE PO Last administered on 12/04/17at 10 :50; Start 12/04/17 at 10:00; Stop 12/04/17 at 10:02; Status DC Alprazolam (Xanax) 0.5 mg Q8H PRN PO preoperative anxiety; Start 12/05/17 at 09 :30; Status UNV A/P Problem List: (1) Fracture of L1 vertebra ICD Code: S32.019A - Unspecified fracture of first lumbar vertebra, initial encounter for closed fracture Status: Acute (2) Thyroid disease ICD Code: E07.9 - Disorder of thyroid, unspecified (3) HTN (hypertension) ICD Code: I10 - Essential (primary) hypertension (4) Anxiety ICD Code: F41.9 - Anxiety disorder, unspecified (5) Dehydration ICD Code: E86.0 - Dehydration Assessment and Plan Fracture of L1 vertebra Continue with IV nonnarcotic pain regimen Neurosurgery consulted, appreciate recommendations continue conservative management at this time. had MRI. patient with L1 vertebral fracture patient with anxiety, pretreated before MRI scheduled for kyphoplasty on Tuesday, Dr Mosher Thyroid disease Continue Synthroid HTN (hypertension) Continue with losartan, control pain Continue with IV blood pressure medicine Anxiety Patient does take Paxil. Psychiatrist was consulted. Recommendation was to avoid benzos. Continue gabapentin. We will treat as directed by psychiatrist. Dehydration Continue with aggressive IV hydration, follow electrolytes Code Status full code Discharge Planning Patient scheduled for kyphoplasty tomorrow. Priya Truong MD Dec 05, 2017 09:54
--- NOTE | 2017-12-05 10:39 | HHI.NSPN ---
(Jazmine Avalos) Note Status Status: Progress Note (Jazmine Avalos) Interval History Interval History 11/30: remains painful in the low back, pain worsens with movement. reports to be severely claustrophobic does not feel she can go through an MRI without being put to sleep. 12/02: MRI Lumbar spine completed late yesterday afternoon shows subacute L1 compression fracture amenable to Kyphoplasty. she reports to be doing better however, lumbar pain better and controlled on pain medications. denies focal weakness, radiculopathy, bowel or bladder incontinence, fevers, chills, chest pain, difficulty breathing, SOB. 12/05: having a lot of anxiety regarding surgery, requesting xanax. reports significant pain in her lumbar spine - would like to proceed with surgery. (Jazmine Avalos) Labs, Micro, & Vital Signs Results Date Time Temp Pulse Resp B/P (MAP) Pulse Ox O2 Delivery O2 Flow Rate FiO2 12/05/17 08:27 97.9 87 16 173/85 (114) 94 12/05/17 04:00 97.8 90 18 141/75 (97) 95 12/05/17 00:00 97.5 87 18 136/68 (90) 96 12/04/17 20:00 97.8 88 18 176/86 (116) 98 12/04/17 18:28 156/73 (100) 12/04/17 16:00 97.1 96 18 178/84 (115) 93 12/04/17 14:30 19 12/04/17 12:00 97.7 89 18 155/88 (110) 95 Constitutional Vital Signs Date Time Temp Pulse Resp B/P (MAP) Pulse Ox O2 Delivery O2 Flow Rate FiO2 12/05/17 08:27 97.9 87 16 173/85 (114) 94 12/05/17 04:00 97.8 90 18 141/75 (97) 95 12/05/17 00:00 97.5 87 18 136/68 (90) 96 12/04/17 20:00 97.8 88 18 176/86 (116) 98 12/04/17 18:28 156/73 (100) 12/04/17 16:00 97.1 96 18 178/84 (115) 93 12/04/17 14:30 19 12/04/17 12:00 97.7 89 18 155/88 (110) 95 (Jazmine Avalos) Review of Systems Constitutional: DENIES: Fever Cardiovascular: DENIES: Chest pain Neurologic: DENIES: Localized weakness, Paresthesias Psychiatric: COMPLAINS OF: Anxiety (Jazmine Avalos) Physical Exam General: Pt awake and alert complaining of low back pain. Eyes: Pupils equal. Sclera anicteric. Resp: CTA bilaterally. Heart: NSR no murmurs. Abd: Soft positive bs. Skin: No cyanosis or erythema. Muscle: Moves all 4 extremities with good strength. Neuro: Pt awake and alert. Follows commands well. Speech clear and appropriate. Sensation in LEs intact to light touch. (Jazmine Avalos) Ms. Greco is alert, awake and oriented to time, place and person. Speech is fluent. Cranial nerve examination: pupils equal, round, and reactive to light. Extra- ocular movements are intact. Facial motor are normal and symmetrical. HEENT: normocephalic. nonicteric sclera. Neck is soft and supple. Musculoskeletal: moves all four extremities well 5/5 Sensory examination is intact to light touch in both the upper and lower extremities Deep tendon reflexes: In the lower extremities, the patellar and Achilles are 1+ , bilaterally. There is a bilateral plantar flexion response. There is no clonus Heart: regular rate Lungs: clear, no wheezing (Wesley Mosher MD) Medications Current Medications Current Medications Medications (Trade) Dose Ordered Sig/Faith Route PRN Reason Start Time Stop Time Status Last Admin Dose Admin Sodium Chloride (NS Flush) 2 ml UNSCH PRN IV FLUSH FLUSH AFTER USING IV ACCESS 11/29/17 14:00 Sodium Chloride (NS Flush) 2 ml BID IV FLUSH 11/29/17 21:00 12/05/17 08:57 Acetaminophen (Tylenol) 650 mg Q4H PRN PO TEMP > 100.4/pain 1 - 10 11/29/17 14:00 12/05/17 02:56 Ondansetron HCl (Zofran Inj) 4 mg Q6H PRN IVP NAUSEA OR VOMITING 11/29/17 14:00 11/29/17 17:34 Naloxone HCl (Narcan Inj) 0.4 mg UNSCH PRN IV PUSH SEE LABEL COMMENTS 11/29/17 14:00 Sennosides (Senokot) 17.2 mg Q12H PRN PO Moderate constipation 11/29/17 14:00 Levothyroxine Sodium (Synthroid) 25 mcg DAILY PO 11/30/17 09:00 12/05/17 08:57 Paroxetine HCl (Paxil Cr) 50 mg DAILY PO 11/30/17 09:00 12/05/17 08:57 Losartan Potassium (Cozaar) 25 mg DAILY PO 11/29/17 15:15 12/05/17 08:57 Clonidine (Catapres) 0.1 mg Q6H PRN PO SBP>160, DBP>90 11/29/17 15:15 12/05/17 08:57 Flumazenil (Romazicon Inj) 0.2 mg Q1M PRN IV PUSH SEE LABEL COMMENTS 11/29/17 15:15 Haloperidol Lactate (Haldol Inj) 2 mg Q8HR PRN IV PUSH ANXIETY /AGITATION 11/30/17 15:00 12/04/17 14:57 Gabapentin (Neurontin) 300 mg TID PO 12/02/17 13:00 12/05/17 08:57 Tramadol HCl (Ultram) 50 mg Q6H PRN PO pain 2-10 12/02/17 21:45 12/05/17 06:05 Alprazolam (Xanax) 0.5 mg Q8H PRN PO preoperative anxiety 12/05/17 09:30 (Jazmine Avalos) Current Medications Current Medications Sodium Chloride 1,000 ml @ 200 mls/hr Q5H ONCE IV Last administered on at 10:42; Start 11/29/17 at 10:15; Stop 11/29/17 at 15:14; Status DC Alprazolam (Xanax) 1 mg ONCE ONCE PO Last administered on 11/29/17at 12:52; Start 11/29/17 at 12:45; Stop 11/29/17 at 12:57; Status DC Lorazepam (Ativan Inj) 1 mg ONCE ONCE IV PUSH Last administered on 11/29/17at 13:16; Start 11/29/17 at 13:00; Stop 11/29/17 at 13:01; Status DC Sodium Chloride 1,000 ml @ 100 mls/hr Q10H IV Last administered on 12/01/17at 06:00; Start 11/29/17 at 14:00; Stop 12/01/17 at 10:17; Status DC Sodium Chloride (NS Flush) 2 ml UNSCH PRN IV FLUSH FLUSH AFTER USING IV ACCESS ; Start 11/29/17 at 14:00; Stop 12/08/17 at 13:31; Status DC Sodium Chloride (NS Flush) 2 ml BID IV FLUSH Last administered on 12/08/17at 08: 23; Start 11/29/17 at 21:00; Stop 12/08/17 at 13:31; Status DC Acetaminophen (Tylenol) 650 mg Q4H PRN PO TEMP > 100.4/pain 1 - 10 Last administered on 12/05/17at 02:56; Start 11/29/17 at 14:00; Stop 12/08/17 at 13:31 ; Status DC Ondansetron HCl (Zofran Inj) 4 mg Q6H PRN IVP NAUSEA OR VOMITING Last administered on 11/29/17at 17:34; Start 11/29/17 at 14:00; Stop 12/08/17 at 13:31 ; Status DC Naloxone HCl (Narcan Inj) 0.4 mg UNSCH PRN IV PUSH SEE LABEL COMMENTS; Start at 14:00; Stop 12/08/17 at 13:31; Status DC Sennosides (Senokot) 17.2 mg Q12H PRN PO Moderate constipation; Start 11/29/17 at 14:00; Stop 12/08/17 at 13:31; Status DC Ketorolac Tromethamine (Toradol Inj) 15 mg Q6H PRN IV PUSH PAIN SCALE 1 TO 10 Last administered on 12/02/17at 12:06; Start 11/29/17 at 14:15; Stop 12/02/17 at 13:59; Status DC Levothyroxine Sodium (Synthroid) 25 mcg DAILY PO Last administered on 12/08/17at 08:23; Start 11/30/17 at 09:00; Stop 12/08/17 at 13:31; Status DC Paroxetine HCl (Paxil Cr) 50 mg DAILY PO Last administered on 12/08/17at 08:29; Start 11/30/17 at 09:00; Stop 12/08/17 at 13:31; Status DC Losartan Potassium (Cozaar) 25 mg DAILY PO Last administered on 12/08/17at 08:23 ; Start 11/29/17 at 15:15; Stop 12/08/17 at 13:31; Status DC Clonidine (Catapres) 0.1 mg Q6H PRN PO SBP>160, DBP>90 Last administered on at 05:30; Start 11/29/17 at 15:15; Stop 12/08/17 at 13:31; Status DC Flumazenil (Romazicon Inj) 0.2 mg Q1M PRN IV PUSH SEE LABEL COMMENTS; Start at 15:15; Stop 12/08/17 at 13:31; Status DC Lorazepam (Ativan) 1 mg Q4H PRN PO CIWA 8 - 10 Last administered on 12/03/17at 05:58; Start 11/29/17 at 15:15; Stop 12/03/17 at 12:55; Status DC Lorazepam (Ativan Inj) 1 mg Q4H PRN IV PUSH CIWA 8 - 10 Last administered on at 16:22; Start 11/29/17 at 15:15; Stop 12/03/17 at 12:55; Status DC Lorazepam (Ativan) 2 mg Q2H PRN PO CIWA 11-14; Start 11/29/17 at 15:15; Stop at 12:55; Status DC Lorazepam (Ativan Inj) 2 mg Q2H PRN IV PUSH CIWA 11-14 Last administered on at 10:08; Start 11/29/17 at 15:15; Stop 12/03/17 at 12:55; Status DC Lorazepam (Ativan Inj) 2 mg Q1H PRN IV PUSH CIWA 15-20 Last administered on at 16:25; Start 11/29/17 at 15:15; Stop 12/03/17 at 12:55; Status DC Lorazepam (Ativan Inj) 2 mg Q15M PRN IV PUSH CIWA > 20; Start 11/29/17 at 15:15 ; Stop 12/03/17 at 12:55; Status DC Hydralazine HCl (Apresoline Inj) 20 mg ONCE ONCE IV PUSH Last administered on 11/29/17at 16:04; Start 11/29/17 at 15:15; Stop 11/29/17 at 15:39; Status DC Lorazepam (Ativan) 0.5 mg Q8H PRN PO anxiety Last administered on 12/03/17at 08: 50; Start 11/30/17 at 11:00; Stop 12/03/17 at 12:55; Status DC Alprazolam (Xanax) 1 mg HIGH DENSITY PRESS OPERATOR ONCE PO Last administered on 11/30/17at 14:15; Start 11/30/17 at 14:15; Stop 11/30/17 at 14:16; Status DC Haloperidol Lactate (Haldol Inj) 2 mg Q8HR PRN IV PUSH ANXIETY /AGITATION Last administered on 12/04/17at 14:57; Start 11/30/17 at 15:00; Stop 12/08/17 at 13:31; Status DC Potassium Chloride (KCl) 40 meq ONCE ONCE PO Last administered on 12/01/17at 10 :45; Start 12/01/17 at 10:30; Stop 12/01/17 at 10:31; Status DC Alprazolam (Xanax) 1 mg Q8H PRN PO ANXIETY if refusing ativan; Start 12/01/17 at 10:30; Stop 12/01/17 at 13:48; Status DC Alprazolam (Xanax) 1 mg Q6H PRN PO ANXIETY if refusing ativan Last administered on 12/02/17at 09:39; Start 12/01/17 at 14:00; Stop 12/02/17 at 10:51 ; Status DC Diphenhydramine HCl (Benadryl Inj) 25 mg HIGH DENSITY PRESS OPERATOR ONCE IM Last administered on 12/01/17at 15:52; Start 12/01/17 at 14:00; Stop 12/01/17 at 14:01; Status DC Gadodiamide (Omniscan Pf Inj) 15 ml STK-MED ONCE IVCONTRAST Last administered on 12/01/17at 17:37; Start 12/01/17 at 17:37; Stop 12/01/17 at 17:38; Status DC Potassium Chloride (KCl) 30 meq ONCE ONCE PO Last administered on 12/02/17at 09 :39; Start 12/02/17 at 08:15; Stop 12/02/17 at 08:16; Status DC Gabapentin (Neurontin) 300 mg TID PO Last administered on 12/08/17at 08:23; Start 12/02/17 at 13:00; Stop 12/08/17 at 13:31; Status DC Potassium Chloride (KCl) 40 meq ONCE ONCE PO Last administered on 12/02/17at 16 :20; Start 12/02/17 at 15:00; Stop 12/02/17 at 15:01; Status DC Tramadol HCl (Ultram) 50 mg Q6H PRN PO pain 2-10 Last administered on at 12:03; Start 12/02/17 at 21:45; Stop 12/05/17 at 15:33; Status DC Ketorolac Tromethamine (Toradol Inj) 15 mg Q6H PRN IM breakthrough pain Last administered on 12/04/17at 20:41; Start 12/02/17 at 21:45; Stop 12/04/17 at 21:44 ; Status DC Alprazolam (Xanax) 0.5 mg Q8H PRN PO anxiety Last administered on 12/04/17at 09 :01; Start 12/03/17 at 13:00; Stop 12/04/17 at 10:01; Status DC Gabapentin (Neurontin) 300 mg TID PO ; Start 12/04/17 at 10:00; Status Cancel Lactulose (Lactulose Liq) 30 ml ONCE ONCE PO Last administered on 12/04/17at 10 :50; Start 12/04/17 at 10:00; Stop 12/04/17 at 10:02; Status DC Alprazolam (Xanax) 0.5 mg Q8H PRN PO preoperative anxiety Last administered on 12/07/17at 21:03; Start 12/05/17 at 09:30; Stop 12/08/17 at 06:00; Status DC Lactated Ringer's 1,000 ml @ 30 mls/hr Q24H PRN IV SEE LABEL COMMENTS; Start at 12:00; Stop 12/08/17 at 11:59; Status DC Sodium Chloride 500 ml @ 30 mls/hr [id number] PRN IV SEE LABEL COMMENTS; Start at 12:00; Stop 12/08/17 at 11:59; Status DC Metoprolol Tartrate (Lopressor) 25 mg HIGH DENSITY PRESS OPERATOR PRN PO SEE LABEL COMMENTS; Start 12/05/17 at 12:00; Stop 12/08/17 at 11:59; Status DC Povidone Iodine (Betadine 5% Antisepsis Kit) 1 applic HIGH DENSITY PRESS OPERATOR PRN EACH NARE SEE LABEL COMMENTS; Start 12/05/17 at 12:00; Stop 12/08/17 at 11:59; Status DC Chlorhexidine Gluconate (Chlorhexidine 2% Cloth) 3 pack HIGH DENSITY PRESS OPERATOR PRN TOPICAL SEE LABEL COMMENTS; Start 12/05/17 at 12:00; Stop 12/08/17 at 11:59; Status DC Acetaminophen/ Hydrocodone Bitart ([place] 10-325 Mg) 1 tab Q4H PRN PO PAIN SCALE 1 TO 5 Last administered on 12/05/17at 16:24; Start 12/05/17 at 15:45; Stop 12/05/17 at 18:08; Status DC Acetaminophen/ Hydrocodone Bitart ([place] 10-325 Mg) 2 tab Q4H PRN PO PAIN SCALE 6 TO 10; Start 12/05/17 at 15:45; Stop 12/05/17 at 18:08; Status DC Morphine Sulfate (Morphine Inj) 2 mg Q2HR PRN IV PUSH breakthrough pain; Start 12/05/17 at 15:45; Stop 12/05/17 at 18:08; Status DC Cefazolin Sodium/ Dextrose 50 ml @ 150 mls/hr ONCE ONCE IV Last administered on 12/06/17at 15:40; Start 12/06/17 at 06:00; Stop 12/06/17 at 06:19; Status DC Chlorhexidine Gluconate (Hibiclens 4% Top Soln) 1 applic HS TOP Last administered on 12/07/17at 20:30; Start 12/05/17 at 21:00; Stop 12/07/17 at 21:01 ; Status DC Tramadol HCl (Ultram) 50 mg Q6H PRN PO pain Last administered on 12/08/17at 08:32 ; Start 12/05/17 at 18:15; Stop 12/08/17 at 13:31; Status DC Bupivacaine HCl/ Epinephrine Bitart (Sensorcaine-Epinephrine Pf 0.5% Inj) 30 ml STK-MED ONCE .ROUTE Last administered on 12/06/17at 16:33; Start 12/06/17 at 15: 27; Stop 12/06/17 at 15:28; Status DC Sodium Chloride 1,000 ml @ 100 mls/hr Q10H IV Last administered on 12/06/17at 18:00; Start 12/06/17 at 15:28; Stop 12/08/17 at 13:31; Status DC Cefazolin Sodium/ Dextrose 50 ml @ 100 mls/hr Q8H IV Last administered on 12/07at 17:22; Start 12/07/17 at 00:00; Stop 12/07/17 at 16:29; Status DC Pantoprazole Sodium (Protonix) 40 mg DAILY PO Last administered on 12/08/17at 08: 22; Start 12/07/17 at 09:00; Stop 12/08/17 at 13:31; Status DC Albuterol Sulfate (Albuterol Neb) 2.5 mg Q4HR NEB PRN INH WHEEZING; Start 12/06 at 15:30; Stop 12/08/17 at 13:31; Status DC Midazolam HCl (Versed Inj) 2 mg STK-MED ONCE .ROUTE ; Start 12/06/17 at 16:31; Stop 12/06/17 at 16:32; Status DC Acetaminophen 100 ml @ As Directed STK-MED ONCE IV ; Start 12/06/17 at 16:34; Stop 12/06/17 at 16:35; Status DC Ondansetron HCl (*ZOFRAN INJ PERIprocedural ONLY) 4 mg STK-MED ONCE .ROUTE Last administered on 12/06/17at 17:21; Start 12/06/17 at 17:21; Stop 12/06/17 at 17:22; Status DC Fentanyl Citrate (fentaNYL INJ) 100 mcg STK-MED ONCE .ROUTE ; Start 12/06/17 at 17:36; Stop 12/06/17 at 17:37; Status DC Midazolam HCl (Versed Inj) 4 mg STK-MED ONCE .ROUTE ; Start 12/06/17 at 17:36; Stop 12/06/17 at 17:37; Status DC Sugammadex Sodium (Bridion Inj) 200 mg STK-MED ONCE IV PUSH ; Start 12/06/17 at 17:36; Stop 12/06/17 at 17:37; Status DC Labetalol HCl (Trandate Inj) 100 mg STK-MED ONCE .ROUTE Last administered on at 17:54; Start 12/06/17 at 17:54; Stop 12/06/17 at 17:55; Status DC Miscellaneous Information ALL NURSING DEPARTME... UNSCH PRN .XX SEE LABEL COMMENTS; Start 12/06/17 at 17:11; Stop 12/07/17 at 17:10; Status DC Lidocaine HCl (Xylocaine-Mpf 1% Inj) 5 ml STK-MED ONCE OTHER ; Start 12/06/17 at 12:00; Stop 12/08/17 at 10:43; Status DC Rocuronium Lima (Zemuron Inj) 50 mg STK-MED ONCE IV PUSH ; Start 12/06/17 at 12:00; Stop 12/08/17 at 10:43; Status DC Phenylephrine HCl (Neosynephrine/ NS 1000 Mcg/10ml Syr) 1,000 mcg STK-MED ONCE IV ; Start 12/06/17 at 12:00; Stop 12/08/17 at 10:44; Status DC Ephedrine Sulfate (ePHEDrine/NS 25 MG/5 ML SYR) 25 mg STK-MED ONCE IV ; Start at 12:00; Stop 12/08/17 at 10:44; Status DC Metoprolol Tartrate (Lopressor Inj) 5 mg STK-MED ONCE IV PUSH ; Start 12/06/17 at 12:00; Stop 12/08/17 at 10:44; Status DC Ketorolac Tromethamine (Toradol Inj) 30 mg STK-MED ONCE IV PUSH ; Start at 12:00; Stop 12/08/17 at 10:44; Status DC Dexamethasone Sodium Phosphate (Decadron Inj) 8 mg STK-MED ONCE IV ; Start 12/06 at 12:00; Stop 12/08/17 at 10:44; Status DC Ondansetron HCl (Zofran Inj) 4 mg STK-MED ONCE IV PUSH ; Start 12/06/17 at 12:00 ; Stop 12/08/17 at 10:44; Status DC (Wesley Mosher MD) Medical Decision Making MDM Remarks 72 y/o female s/p fall with intractable back pain, subacute L1 compression fracture Last Impressions Lumbar Spine MRI 12/01/17 0000 Signed Impressions: Service Date/Time: November 16:44 - CONCLUSION: Moderate severity subacute compression fracture injury at L1. This lesion does appear amenable to reduction and stabilization with kyphoplasty. Chano Cade MD Thoracic Spine CT 11/29/17 1014 Signed Impressions: Service Date/Time: Wednesday, November 29, 2017 10:55 - CONCLUSION: 1. No evidence of acute compression deformity or spondylolisthesis in the thoracic spine. 2. Superior endplate compression fracture at L1 with posterior protruding superior cortex indenting the thecal sac. Augustin Simmons MD Lumbar Spine CT 11/29/17 1014 Signed Impressions: Service Date/Time: Wednesday, November 29, 2017 10:55 - CONCLUSION: 1. L1 superior endplate compression fracture with sclerosis and thin fracture lines and retro-pulsed posterior superior cortex indenting on the thecal sac. The neural foramen remain patent. Possible nondisplaced hairline fracture through the left pedicle. 2. Prominent bilateral facet joint hypertrophy at L4-5, greater in severity in the left side with associated neural foraminal stenosis superimposed upon broad-based bulging of the disc. Augustin Simmons MD (Jazmine Avalos) Plan Plan Remarks for L1 kyphoplasty tomorrow consents in chart NPO basilio Mosher ok'ed for xanax 0.5 q8 hrs prn preoperative anxiety, will dc following surgery (Jazmine Avalos) Plan Remarks Caprini Risk Assessment Model Point Value = 1 Point Value = 2 Point Value = 3 Point Value = 5 Age 41-60 Minor surgery BMI > 25 kg/m2 Swollen legs Varicose veins or History of unexplained or recurrent spontaneous Oral contraceptives or hormone replacement Sepsis (< 1 month) Serious lung disease, including pneumonia (< 1 month) Abnormal pulmonary function Acute myocardial infarction Congestive heart failure (< 1 month) History of inflammatory bowel disease Medical patient at bed rest Age 61-74 Arthroscopic surgery Major open surgery (> 45 min) Laparoscopic surgery (> 45 min) Malignancy Confined to bed (> 72 hours) Immobilizing plaster cast Central venous access Age >= 75 History of VTE Family history of VTE Factor V Leiden Prothrombin [id number] Lupus anticoagulant Anticardiolipin antibodies Elevated serum homocysteine Heparin-induced thrombocytopenia Other congenital or acquired thrombophilia Stroke (< 1 month) Elective arthroplasty Hip, pelvis, or leg fracture Acute spinal cord injury (< 1 month) Prophylaxis Regimen Total Risk Factor Score Risk Level Prophylaxis Regimen 0-1 Low Early ambulation 2 Moderate Order ONE of the following: *Sequential Compression Device (SCD) *Heparin 5000 units SQ BID 3-4 Higher Order ONE of the following medications: *Heparin 5000 units SQ TID *Enoxaparin/Lovenox 40 mg SQ daily (WT < 150 kg, CrCl > 30 mL/min) *Enoxaparin/Lovenox 30 mg SQ daily (WT < 150 kg, CrCl > 10-29 mL/min) *Enoxaparin/Lovenox 30 mg SQ BID (WT < 150 kg, CrCl > 30 mL/min) AND/OR *Sequential Compression Device (SCD) 5 or more Highest Order ONE of the following medications: *Heparin 5000 units SQ TID (Preferred with Epidurals) *Enoxaparin/Lovenox 40 mg SQ daily (WT < 150 kg, CrCl > 30 mL/min) *Enoxaparin/Lovenox 30 mg SQ daily (WT < 150 kg, CrCl > 10-29 mL/min) *Enoxaparin/Lovenox 30 mg SQ BID (WT < 150 kg, CrCl > 30 mL/min) AND *Sequential Compression Device (SCD) (Wesley Mosher MD) Attending Statement 72 y/o female s/p fall with intractable back pain, subacute L1 compression fracture I again reviewed her radiological studies Lumbar Spine MRI 12/01/17 0000 Signed Impressions: Service Date/Time: November 16:44 - CONCLUSION: Moderate severity subacute compression fracture injury at L1. This lesion does appear amenable to reduction and stabilization with kyphoplasty. Chano Cade MD Thoracic Spine CT 11/29/17 1014 Signed Impressions: Service Date/Time: Wednesday, November 29, 2017 10:55 - CONCLUSION: 1. No evidence of acute compression deformity or spondylolisthesis in the thoracic spine. 2. Superior endplate compression fracture at L1 with posterior protruding superior cortex indenting the thecal sac. Augustin Simmons MD Lumbar Spine CT 11/29/17 1014 Signed Impressions: Service Date/Time: Wednesday, November 29, 2017 10:55 - CONCLUSION: 1. L1 superior endplate compression fracture with sclerosis and thin fracture lines and retro-pulsed posterior superior cortex indenting on the thecal sac. The neural foramen remain patent. Possible nondisplaced hairline fracture through the left pedicle. 2. Prominent bilateral facet joint hypertrophy at L4-5, greater in severity in the left side with associated neural foraminal stenosis superimposed upon broad-based bulging of the disc. Augustin Simmons MD Continue neuro checks. I discussed alternatives of gtreatment including possible kyphoplasty. We have discussed the details including the [id number] details of the surgical procedure, its indications, alternatives, risks, and potential complications. Risks and potential complications include, but are not limited to, infection, blood loss, CSF leak, partial or complete loss of sight in one or both eyes, paresis, paralysis, permanent pain or difficulty swallowing, loss of bowel or bladder function, complications from anesthesia, blood clot, stroke, myocardial infarction, or even . Pulmonary.. Continue aggressive pulmonary toilette, nasotracheal suction, and breathing treatments with nebulizers. Nutrition. NPO Renal. monitor closely urine output, BUN and creatinine Endocrine. Monitor serial Acu checks and SSI as needed in detail ID monitor for signs of infection Protonix for stress ulcer prophylaxis Jeancarlos hose and SCD's for DVT prophylaxis The exam, history, and the medical decision-making described in the above note were completed with the assistance of the mid-level provider. I reviewed and agree with the findings presented. I attest that I had a [id number] encounter with the patient on the same day, and personally performed and documented my assessment and findings in the medical record. (Wesley Mosher MD) Jazmine Avalos Dec 05, 2017 10:39 Wesley Mosher MD Dec 11, 2017 20:50
[2017-12-05] MEDS: ALPRAZolam 0.5 MG TAB PO PRN ×2 (10:41→18:34)
[2017-12-05] MEDS ORDERED: SODIUM CHLORID 0.9% 500 ML IV PRN (12:00)
[2017-12-05] MEDS ORDERED: METOPROLOL TARTRATE 25 MG TAB PO PRN (12:00)
[2017-12-05] MEDS ORDERED: LACTATED RINGER'S 1000 ML IV PRN (12:00)
[2017-12-05] MEDS ORDERED: POVIDONE IODINE 5% (ANTISEPSIS KIT) 4 APPLICATIONS EACH NARE PRN (12:00)
[2017-12-05] MEDS ORDERED: CHLORHEXIDINE GLUCONATE 2 % 1 PACK (2 CLOTHS) TOPICAL PRN (12:00)
[2017-12-05 12:29] VITALS: BP 140/73; PULSE 86; RESP 17; TEMP 98; O2SAT 95
[2017-12-05] MEDS ORDERED: ACETAMINOPHEN/HYDROcodone 325 MG/10 MG TAB PO PRN ×2 (15:45)
[2017-12-05] MEDS ORDERED: MORPHINE SULFATE 4 MG/ML INJ IV PUSH PRN (15:45)
[2017-12-05 16:55] VITALS: BP 136/72; PULSE 85; RESP 17; TEMP 97.5; O2SAT 96
[2017-12-05] MEDS: CHLORHEXIDINE GLUCONATE 4% SOLN 120 ML BTL TOP SCH (21:00)
[2017-12-05 21:09] VITALS: BP 157/79; PULSE 91; RESP 18; TEMP 97.4; O2SAT 95
[2017-12-06] VITALS (7 sets, daily range): BP systolic 136–191; BP diastolic 75–88; PULSE 0–95; RESP 18–20; TEMP 96.7–98.3; O2SAT 95–98
[2017-12-06] MEDS: ALPRAZolam 0.5 MG TAB PO PRN ×3 (02:45→18:32)
[2017-12-06] MEDS: cloNIDine HCL 0.1 MG TAB PO PRN (05:30)
[2017-12-06] MEDS: traMADol HCL 50 MG TAB PO PRN ×3 (05:30→23:28)
[2017-12-06] MEDS ORDERED: ceFAZolin 2 GM PREMIX 50 ML IV ONE (06:00)
[2017-12-06] MEDS: LEVOTHYROXINE SODIUM 25 MCG TAB PO SCH (08:34)
[2017-12-06] MEDS: PARoxetine 25 MG CONTROLLED RELEASE TAB PO SCH (08:34)
[2017-12-06] MEDS: LOSARTAN 25 MG TAB PO SCH (08:34)
[2017-12-06] MEDS: GABAPENTIN 300 MG CAP PO SCH ×3 (08:34→19:47)
[2017-12-06] MEDS: SODIUM CHLORIDE 0.9% FLUSH 10 ML FLUSH IV FLUSH SCH ×2 (08:34→20:11)
--- NOTE | 2017-12-06 10:20 | HHI.PR ---
Subjective Remarks f/u for back pain patient scheduled for kyphoplasty today. she stated she is feeling anxious about the procedure. No other complaints. Objective Vitals Vital Signs Date Time Temp Pulse Resp B/P (MAP) Pulse Ox O2 Delivery O2 Flow Rate FiO2 12/06/17 08:17 98.3 95 18 146/77 (100) 95 12/06/17 05:28 98.0 92 18 172/81 (111) 98 12/06/17 00:36 97.5 86 18 136/75 (95) 96 12/05/17 21:09 97.4 91 18 157/79 (105) 95 12/05/17 17:25 18 12/05/17 16:55 97.5 85 17 136/72 (93) 96 12/05/17 13:05 18 12/05/17 12:29 98.0 86 17 140/73 (95) 95 I/O 12/05/17 12/05/17 12/05/17 12/06/17 12/06/17 12/06/17 07:00 15:00 23:00 07:00 15:00 23:00 Intake Total 960 ml Balance 960 ml Intake Oral 960 ml # Voids 6 2 1 Result Diagram: 12/03/1735 12/03/1735 Objective Remarks GENERAL: in NAD CARDIOVASCULAR: Regular rate and rhythm without murmurs, gallops, or rubs. RESPIRATORY: Breath sounds equal bilaterally. No accessory muscle use. GASTROINTESTINAL: Abdomen soft, non-tender, nondistended. NEURO: No tremors noted. She is AAO 3. Procedures none Medications and IVs Current Medications Sodium Chloride 1,000 ml @ 200 mls/hr Q5H ONCE IV Last administered on at 10:42; Start 11/29/17 at 10:15; Stop 11/29/17 at 15:14; Status DC Alprazolam (Xanax) 1 mg ONCE ONCE PO Last administered on 11/29/17at 12:52; Start 11/29/17 at 12:45; Stop 11/29/17 at 12:57; Status DC Lorazepam (Ativan Inj) 1 mg ONCE ONCE IV PUSH Last administered on 11/29/17at 13:16; Start 11/29/17 at 13:00; Stop 11/29/17 at 13:01; Status DC Sodium Chloride 1,000 ml @ 100 mls/hr Q10H IV Last administered on 12/01/17 06:00; Start 11/29/17 at 14:00; Stop 12/01/17 at 10:17; Status DC Sodium Chloride (NS Flush) 2 ml UNSCH PRN IV FLUSH FLUSH AFTER USING IV ACCESS ; Start 11/29/17 at 14:00 Sodium Chloride (NS Flush) 2 ml BID IV FLUSH Last administered on 12/06/17 08: 34; Start 11/29/17 at 21:00 Acetaminophen (Tylenol) 650 mg Q4H PRN PO TEMP > 100.4/pain 1 - 10 Last administered on 12/05/17at 02:56; Start 11/29/17 at 14:00 Ondansetron HCl (Zofran Inj) 4 mg Q6H PRN IVP NAUSEA OR VOMITING Last administered on 11/29/17 17:34; Start 11/29/17 at 14:00 Naloxone HCl (Narcan Inj) 0.4 mg UNSCH PRN IV PUSH SEE LABEL COMMENTS; Start at 14:00 Sennosides (Senokot) 17.2 mg Q12H PRN PO Moderate constipation; Start 11/29/17 at 14:00 Ketorolac Tromethamine (Toradol Inj) 15 mg Q6H PRN IV PUSH PAIN SCALE 1 TO 10 Last administered on 12/02/17 12:06; Start 11/29/17 at 14:15; Stop 12/02/17 at 13:59; Status DC Levothyroxine Sodium (Synthroid) 25 mcg DAILY PO Last administered on 08:34; Start 11/30/17 at 09:00 Paroxetine HCl (Paxil Cr) 50 mg DAILY PO Last administered on 12/06/17 08:34; Start 11/30/17 at 09:00 Losartan Potassium (Cozaar) 25 mg DAILY PO Last administered on 12/06/17 08:34 ; Start 11/29/17 at 15:15 Clonidine (Catapres) 0.1 mg Q6H PRN PO SBP>160, DBP>90 Last administered on at 05:30; Start 11/29/17 at 15:15 Flumazenil (Romazicon Inj) 0.2 mg Q1M PRN IV PUSH SEE LABEL COMMENTS; Start at 15:15 Lorazepam (Ativan) 1 mg Q4H PRN PO CIWA 8 - 10 Last administered on 12/03/17at 05:58; Start 11/29/17 at 15:15; Stop 12/03/17 at 12:55; Status DC Lorazepam (Ativan Inj) 1 mg Q4H PRN IV PUSH CIWA 8 - 10 Last administered on at 16:22; Start 11/29/17 at 15:15; Stop 12/03/17 at 12:55; Status DC Lorazepam (Ativan) 2 mg Q2H PRN PO CIWA 11-14; Start 11/29/17 at 15:15; Stop at 12:55; Status DC Lorazepam (Ativan Inj) 2 mg Q2H PRN IV PUSH CIWA 11-14 Last administered on at 10:08; Start 11/29/17 at 15:15; Stop 12/03/17 at 12:55; Status DC Lorazepam (Ativan Inj) 2 mg Q1H PRN IV PUSH CIWA 15-20 Last administered on at 16:25; Start 11/29/17 at 15:15; Stop 12/03/17 at 12:55; Status DC Lorazepam (Ativan Inj) 2 mg Q15M PRN IV PUSH CIWA > 20; Start 11/29/17 at 15:15 ; Stop 12/03/17 at 12:55; Status DC Hydralazine HCl (Apresoline Inj) 20 mg ONCE ONCE IV PUSH Last administered on 11/29/17at 16:04; Start 11/29/17 at 15:15; Stop 11/29/17 at 15:39; Status DC Lorazepam (Ativan) 0.5 mg Q8H PRN PO anxiety Last administered on 12/03/17at 08: 50; Start 11/30/17 at 11:00; Stop 12/03/17 at 12:55; Status DC Alprazolam (Xanax) 1 mg LAP GRINDER ONCE PO Last administered on 11/30/17at 14:15; Start 11/30/17 at 14:15; Stop 11/30/17 at 14:16; Status DC Haloperidol Lactate (Haldol Inj) 2 mg Q8HR PRN IV PUSH ANXIETY /AGITATION Last administered on 12/04/17at 14:57; Start 11/30/17 at 15:00 Potassium Chloride (KCl) 40 meq ONCE ONCE PO Last administered on 12/01/17at 10 :45; Start 12/01/17 at 10:30; Stop 12/01/17 at 10:31; Status DC Alprazolam (Xanax) 1 mg Q8H PRN PO ANXIETY if refusing ativan; Start 12/01/17 at 10:30; Stop 12/01/17 at 13:48; Status DC Alprazolam (Xanax) 1 mg Q6H PRN PO ANXIETY if refusing ativan Last administered on 12/02/17at 09:39; Start 12/01/17 at 14:00; Stop 12/02/17 at 10:51 ; Status DC Diphenhydramine HCl (Benadryl Inj) 25 mg LAP GRINDER ONCE IM Last administered on 12/01/17at 15:52; Start 12/01/17 at 14:00; Stop 12/01/17 at 14:01; Status DC Gadodiamide (Omniscan Pf Inj) 15 ml STK-MED ONCE IVCONTRAST Last administered on 12/01/17at 17:37; Start 12/01/17 at 17:37; Stop 12/01/17 at 17:38; Status DC Potassium Chloride (KCl) 30 meq ONCE ONCE PO Last administered on 12/02/17at 09 :39; Start 12/02/17 at 08:15; Stop 12/02/17 at 08:16; Status DC Gabapentin (Neurontin) 300 mg TID PO Last administered on 12/06/17at 08:34; Start 12/02/17 at 13:00 Potassium Chloride (KCl) 40 meq ONCE ONCE PO Last administered on 12/02/17at 16 :20; Start 12/02/17 at 15:00; Stop 12/02/17 at 15:01; Status DC Tramadol HCl (Ultram) 50 mg Q6H PRN PO pain 2-10 Last administered on at 12:03; Start 12/02/17 at 21:45; Stop 12/05/17 at 15:33; Status DC Ketorolac Tromethamine (Toradol Inj) 15 mg Q6H PRN IM breakthrough pain Last administered on 12/04/17at 20:41; Start 12/02/17 at 21:45; Stop 12/04/17 at 21:44 ; Status DC Alprazolam (Xanax) 0.5 mg Q8H PRN PO anxiety Last administered on 12/04/17at 09 :01; Start 12/03/17 at 13:00; Stop 12/04/17 at 10:01; Status DC Gabapentin (Neurontin) 300 mg TID PO ; Start 12/04/17 at 10:00; Status Cancel Lactulose (Lactulose Liq) 30 ml ONCE ONCE PO Last administered on 12/04/17at 10 :50; Start 12/04/17 at 10:00; Stop 12/04/17 at 10:02; Status DC Alprazolam (Xanax) 0.5 mg Q8H PRN PO preoperative anxiety Last administered on 12/06/17at 02:45; Start 12/05/17 at 09:30 Lactated Ringer's 1,000 ml @ 30 mls/hr Q24H PRN IV SEE LABEL COMMENTS; Start at 12:00; Stop 12/08/17 at 11:59 Sodium Chloride 500 ml @ 30 mls/hr [id number] PRN IV SEE LABEL COMMENTS; Start at 12:00; Stop 12/08/17 at 11:59 Metoprolol Tartrate (Lopressor) 25 mg LAP GRINDER PRN PO SEE LABEL COMMENTS; Start 12/05/17 at 12:00; Stop 12/08/17 at 11:59 Povidone Iodine (Betadine 5% Antisepsis Kit) 1 applic LAP GRINDER PRN EACH NARE SEE LABEL COMMENTS; Start 12/05/17 at 12:00; Stop 12/08/17 at 11:59 Chlorhexidine Gluconate (Chlorhexidine 2% Cloth) 3 pack LAP GRINDER PRN TOPICAL SEE LABEL COMMENTS; Start 12/05/17 at 12:00; Stop 12/08/17 at 11:59 Acetaminophen/ Hydrocodone Bitart ([place] 10-325 Mg) 1 tab Q4H PRN PO PAIN SCALE 1 TO 5 Last administered on 12/05/17at 16:24; Start 12/05/17 at 15:45; Stop 12/05/17 at 18:08; Status DC Acetaminophen/ Hydrocodone Bitart ([place] 10-325 Mg) 2 tab Q4H PRN PO PAIN SCALE 6 TO 10; Start 12/05/17 at 15:45; Stop 12/05/17 at 18:08; Status DC Morphine Sulfate (Morphine Inj) 2 mg Q2HR PRN IV PUSH breakthrough pain; Start 12/05/17 at 15:45; Stop 12/05/17 at 18:08; Status DC Cefazolin Sodium/ Dextrose 50 ml @ 150 mls/hr ONCE ONCE IV ; Start 12/06/17 at 06:00; Stop 12/06/17 at 06:19; Status DC Chlorhexidine Gluconate (Hibiclens 4% Top Soln) 1 applic HS TOP Last administered on 12/05/17at 21:00; Start 12/05/17 at 21:00; Stop 12/07/17 at 21:01 Tramadol HCl (Ultram) 50 mg Q6H PRN PO pain Last administered on 12/06/17at 05: 30; Start 12/05/17 at 18:15 A/P Problem List: (1) Fracture of L1 vertebra ICD Code: S32.019A - Unspecified fracture of first lumbar vertebra, initial encounter for closed fracture Status: Acute (2) Thyroid disease ICD Code: E07.9 - Disorder of thyroid, unspecified (3) HTN (hypertension) ICD Code: I10 - Essential (primary) hypertension (4) Anxiety ICD Code: F41.9 - Anxiety disorder, unspecified (5) Dehydration ICD Code: E86.0 - Dehydration Assessment and Plan Fracture of L1 vertebra Continue with IV nonnarcotic pain regimen Neurosurgery consulted, appreciate recommendations continue conservative management at this time. had MRI. patient with L1 vertebral fracture patient with anxiety, pretreated before MRI scheduled for kyphoplasty today with Dr Mosher Thyroid disease Continue Synthroid HTN (hypertension) Continue with losartan, control pain Continue with IV blood pressure medicine Anxiety Patient does take Paxil. Psychiatrist was consulted. Recommendation was to avoid benzos. Continue gabapentin. We will treat as directed by psychiatrist. Dehydration Continue with aggressive IV hydration, follow electrolytes Code Status full code Discharge Planning Patient scheduled for kyphoplasty today. Priya Truong MD Dec 06, 2017 10:20
[2017-12-06] MEDS ORDERED: ONDANSETRON HCL 4 MG/2 ML VIAL IV PUSH ONE (12:00)
[2017-12-06] MEDS ORDERED: KETOROLAC TROMETHAMINE 30 MG/ML (IVP) VIAL IV PUSH ONE (12:00)
[2017-12-06] MEDS ORDERED: ROCURONIUM INJ 50 MG/5 ML SYRINGE IV PUSH ONE (12:00)
[2017-12-06] MEDS ORDERED: LIDOCAINE HCL 1% PF 5 ML SYRINGE OTHER ONE (12:00)
[2017-12-06] MEDS ORDERED: DEXAMETHASONE SOD PHOS 4 MG/ML VIAL IV ONE (12:00)
[2017-12-06] MEDS ORDERED: PHENYLEPH/NS 1000 MCG/10 ML SYR IV ONE (12:00)
[2017-12-06] MEDS ORDERED: METOPROLOL TARTRATE 5 MG/5 ML VIAL IV PUSH ONE (12:00)
[2017-12-06] MEDS ORDERED: ePHEDrine/NS 25 MG/5 ML SYRINGE IV ONE (12:00)
[2017-12-06] MEDS ORDERED: BUPIVACAINE/EPINEPHRINE 0.5% PF 30 ML VIAL ONE (15:27)
[2017-12-06] MEDS ORDERED: RESP: ALBUTEROL 2.5 MG/3 ML NEB (PRN) INH (15:30)
[2017-12-06] MEDS ORDERED: MIDAZOLAM HCL 2 MG/2 ML VIAL ONE ×2 (16:31→17:36)
[2017-12-06] MEDS ORDERED: ACETAMINOPHEN 1000 MG/100 ML 100 ML IV ONE (16:34)
[2017-12-06] MEDS ORDERED: DO NOT ADM ANY ANTICOAGULANT DRUGS PRN (17:11)
[2017-12-06] MEDS ORDERED: *ONDANSETRON 4 MG VIAL PERIprocedural Use ONLY ONE (17:21)
[2017-12-06] MEDS ORDERED: SUGAMMADEX SODIUM 200 MG/2 ML VIAL IV PUSH ONE (17:36)
--- NOTE | 2017-12-06 17:37 | RADRPT ---
EXAM DATE/TIME: 12/06/2017 16:23 [facility] COMPARISON: SPINE [facility]UMBAR [facility]TD (AP & LAT), November 15, 2017, 17:33. INDICATIONS : L1 kyphoplasty. MEDICAL HISTORY : Hypertension. Renal insufficiency. SURGICAL HISTORY : Cholecystectomy. Tonsillectomy. Right kidney and right rotator cuff. ENCOUNTER: Subsequent ACUITY: 4 - 6 days PAIN SCORE: Non-responsive. LOCATION: Lumbar spine. FINDINGS: 2 spot fluoroscopic images obtained in the operating room during a procedure documents a cement mater ial within the L1 vertebral body. There is mild height loss of this vertebral body. No extruded cemen t is seen. Cholecystectomy clips are present. CONCLUSION: No extruded cement material is identified following L1 kyphoplasty. Chano Arce MD on December 06, 2017 at 17:35 Board Certified Radiologist. This report was verified electronically.
[2017-12-06] MEDS ORDERED: LABETALOL HCL 100 MG/20 ML VIAL ONE (17:54)
[2017-12-06] MEDS: SODIUM CHLOR 0.9% 1000 ML INJ 1,000 ML IV SCH (18:00)
[2017-12-06] MEDS: CHLORHEXIDINE GLUCONATE 4% SOLN 120 ML BTL TOP SCH (22:01)
[2017-12-06] MEDS: ceFAZolin 2 GM PREMIX 50 ML IV SCH (22:39)
[2017-12-07] VITALS: BP 139/75; PULSE 89; RESP 16; TEMP 96.5; O2SAT 97
[2017-12-07] MEDS: SODIUM CHLOR 0.9% 1000 ML INJ 1,000 ML IV SCH ×3 (01:28→21:28)
[2017-12-07] MEDS: ALPRAZolam 0.5 MG TAB PO PRN ×3 (02:38→21:03)
[2017-12-07 04:00] VITALS: BP 155/88; PULSE 87; RESP 16; TEMP 96.9; O2SAT 96
[2017-12-07] MEDS: traMADol HCL 50 MG TAB PO PRN ×2 (06:02→17:21)
[2017-12-07 08:00] VITALS: BP 154/77; PULSE 90; RESP 18; TEMP 98.2; O2SAT 98
[2017-12-07] MEDS: LOSARTAN 25 MG TAB PO SCH (08:40)
[2017-12-07] MEDS: GABAPENTIN 300 MG CAP PO SCH ×3 (08:41→17:56)
[2017-12-07] MEDS: LEVOTHYROXINE SODIUM 25 MCG TAB PO SCH (08:41)
[2017-12-07] MEDS: PANTOPRAZOLE SOD 40 MG DELAYED RELEASE TAB PO SCH (08:41)
[2017-12-07] MEDS: ceFAZolin 2 GM PREMIX 50 ML IV SCH ×2 (08:42→17:22)
[2017-12-07] MEDS: SODIUM CHLORIDE 0.9% FLUSH 10 ML FLUSH IV FLUSH SCH ×2 (08:43→20:30)
--- NOTE | 2017-12-07 09:28 | HHI.NSPN ---
(Jazmine Avalos) Note Status Status: Progress Note (Jazmine Avalos) Interval History Interval History 11/30: remains painful in the low back, pain worsens with movement. reports to be severely claustrophobic does not feel she can go through an MRI without being put to sleep. 12/02: MRI Lumbar spine completed late yesterday afternoon shows subacute L1 compression fracture amenable to Kyphoplasty. she reports to be doing better however, lumbar pain better and controlled on pain medications. denies focal weakness, radiculopathy, bowel or bladder incontinence, fevers, chills, chest pain, difficulty breathing, SOB. 12/05: having a lot of anxiety regarding surgery, requesting xanax. reports significant pain in her lumbar spine - would like to proceed with surgery. 12/07: s/p L1 Kyphoplasty yesterday. currently doing well, reports prior lumbar pain improved. denies radiculopathy in lower extremities, very happy with her surgical outcome. no new other neuro complaints. pt requesting to be discharged home with home health care (Jazmine Avalos) Labs, Micro, & Vital Signs Results Date Time Temp Pulse Resp B/P (MAP) Pulse Ox O2 Delivery O2 Flow Rate FiO2 12/07/17 08:00 98.2 90 18 154/77 (102) 98 12/07/17 07:02 20 12/07/17 04:00 96.9 87 16 155/88 (110) 96 12/07/17 04:00 96.9 87 16 155/88 (110) 96 12/07/17 00:00 96.5 89 16 139/75 (96) 97 12/06/17 23:11 93 18 160/84 (109) 97 12/06/17 20:00 96.7 80 18 191/88 (122) 97 12/06/17 18:25 98.0 81 19 160/93 (115) 98 Nasal Cannula 3 12/06/17 18:15 79 18 179/81 (113) 96 Nasal Cannula 3 12/06/17 18:00 80 19 175/89 (117) 99 Nasal Cannula 3 12/06/17 17:45 91 16 181/78 (112) 99 Nasal Cannula 3 12/06/17 17:30 91 16 192/91 (124) 99 Nasal Cannula 3 12/06/17 17:15 93 16 169/71 (103) 98 Nasal Cannula 3 12/06/17 17:13 97.9 92 14 182/83 (116) 98 Nasal Cannula 3 12/06/17 12:32 98.0 95 20 145/75 (98) 96 Constitutional Vital Signs Date Time Temp Pulse Resp B/P (MAP) Pulse Ox O2 Delivery O2 Flow Rate FiO2 12/07/17 08:00 98.2 90 18 154/77 (102) 98 12/07/17 07:02 20 12/07/17 04:00 96.9 87 16 155/88 (110) 96 12/07/17 04:00 96.9 87 16 155/88 (110) 96 12/07/17 00:00 96.5 89 16 139/75 (96) 97 12/06/17 23:11 93 18 160/84 (109) 97 12/06/17 20:00 96.7 80 18 191/88 (122) 97 12/06/17 18:25 98.0 81 19 160/93 (115) 98 Nasal Cannula 3 12/06/17 18:15 79 18 179/81 (113) 96 Nasal Cannula 3 12/06/17 18:00 80 19 175/89 (117) 99 Nasal Cannula 3 12/06/17 17:45 91 16 181/78 (112) 99 Nasal Cannula 3 12/06/17 17:30 91 16 192/91 (124) 99 Nasal Cannula 3 12/06/17 17:15 93 16 169/71 (103) 98 Nasal Cannula 3 12/06/17 17:13 97.9 92 14 182/83 (116) 98 Nasal Cannula 3 12/06/17 12:32 98.0 95 20 145/75 (98) 96 (Jazmine Avalos) Review of Systems Constitutional: DENIES: Fever Musculoskeletal: COMPLAINS OF: Back pain (improved) Neurologic: DENIES: Headache, Localized weakness, Paresthesias (Jazmine Avalos) Physical Exam General: Appears comfortable in bed. Eyes: Pupils equal. Sclera anicteric. Resp: clear, no wheezes Skin: No cyanosis or erythema. Muscle: Moves all 4 extremities with good strength. Neuro: Pt awake and alert. Follows commands well. Speech clear and appropriate. Sensation in LEs intact to light touch. (Jazmine Avalos) Medications Current Medications Current Medications Medications (Trade) Dose Ordered Sig/Faith Route PRN Reason Start Time Stop Time Status Last Admin Dose Admin Sodium Chloride (NS Flush) 2 ml UNSCH PRN IV FLUSH FLUSH AFTER USING IV ACCESS 11/29/17 14:00 Sodium Chloride (NS Flush) 2 ml BID IV FLUSH 11/29/17 21:00 12/07/17 08:43 Acetaminophen (Tylenol) 650 mg Q4H PRN PO TEMP > 100.4/pain 1 - 10 11/29/17 14:00 12/05/17 02:56 Ondansetron HCl (Zofran Inj) 4 mg Q6H PRN IVP NAUSEA OR VOMITING 11/29/17 14:00 11/29/17 17:34 Naloxone HCl (Narcan Inj) 0.4 mg UNSCH PRN IV PUSH SEE LABEL COMMENTS 11/29/17 14:00 Sennosides (Senokot) 17.2 mg Q12H PRN PO Moderate constipation 11/29/17 14:00 Levothyroxine Sodium (Synthroid) 25 mcg DAILY PO 11/30/17 09:00 12/07/17 08:41 Paroxetine HCl (Paxil Cr) 50 mg DAILY PO 11/30/17 09:00 12/06/17 08:34 Losartan Potassium (Cozaar) 25 mg DAILY PO 11/29/17 15:15 12/07/17 08:40 Clonidine (Catapres) 0.1 mg Q6H PRN PO SBP>160, DBP>90 11/29/17 15:15 12/06/17 05:30 Flumazenil (Romazicon Inj) 0.2 mg Q1M PRN IV PUSH SEE LABEL COMMENTS 11/29/17 15:15 Haloperidol Lactate (Haldol Inj) 2 mg Q8HR PRN IV PUSH ANXIETY /AGITATION 11/30/17 15:00 12/04/17 14:57 Gabapentin (Neurontin) 300 mg TID PO 12/02/17 13:00 12/07/17 08:41 Alprazolam (Xanax) 0.5 mg Q8H PRN PO preoperative anxiety 12/05/17 09:30 12/08/17 06:00 12/07/17 02:38 Lactated Ringer's 1,000 ml @ 30 mls/hr Q24H PRN IV SEE LABEL COMMENTS 12/05/17 12:00 12/08/17 11:59 Sodium Chloride 500 ml @ 30 mls/hr [id number] PRN IV SEE LABEL COMMENTS 12/05/17 12:00 12/08/17 11:59 Metoprolol Tartrate (Lopressor) 25 mg [employer] PRN PO SEE LABEL COMMENTS 12/05/17 12:00 12/08/17 11:59 Povidone Iodine (Betadine 5% Antisepsis Kit) 1 applic [employer] PRN EACH NARE SEE LABEL COMMENTS 12/05/17 12:00 12/08/17 11:59 Chlorhexidine Gluconate (Chlorhexidine 2% Cloth) 3 pack [employer] PRN TOPICAL SEE LABEL COMMENTS 12/05/17 12:00 12/08/17 11:59 Chlorhexidine Gluconate (Hibiclens 4% Top Soln) 1 applic HS TOP 12/05/17 21:00 12/07/17 21:01 12/06/17 22:01 Tramadol HCl (Ultram) 50 mg Q6H PRN PO pain 12/05/17 18:15 12/07/17 06:02 Sodium Chloride 1,000 ml @ 100 mls/hr Q10H IV 12/06/17 15:28 12/06/17 18:00 Cefazolin Sodium/ Dextrose 50 ml @ 100 mls/hr Q8H IV 12/07/17 00:00 12/07/17 16:29 12/07/17 08:42 Pantoprazole Sodium (Protonix) 40 mg DAILY PO 12/07/17 09:00 12/07/17 08:41 Albuterol Sulfate (Albuterol Neb) 2.5 mg Q4HR NEB PRN INH WHEEZING 12/06/17 15:30 Miscellaneous Information ALL NURSING DEPARTME... UNSCH PRN .XX SEE LABEL COMMENTS 12/06/17 17:11 12/07/17 17:10 (Jazmine Avalos) Medical Decision Making MDM Remarks 72 y/o female s/p fall with intractable back pain, subacute L1 compression fracture, s/p Kyphoplasty 12/06/17, improved preoperative lumbar pain (Jazmine Avalos) Plan Plan Remarks doing well, cont current care custom TLSO dw PT, mobilize today, ok remove brace when sitting in chair clear to dc home with home health care from [facility] standpoint f/u in office in 1 weeks for wound check (Jazmine Avalos) Attending Statement The exam, history, and the medical decision-making described in the above note were completed with the assistance of the mid-level provider. I reviewed and agree with the findings presented. I attest that I had a [id number] encounter with the patient on the same day, and personally performed and documented my assessment and findings in the medical record. (Wesley Mosher MD) Jazmine Avalos Dec 07, 2017 09:28 Wesley Mosher MD Dec 11, 2017 21:04
[2017-12-07] MEDS: PARoxetine 25 MG CONTROLLED RELEASE TAB PO SCH (10:51)
[2017-12-07 12:00] VITALS: BP 151/69; PULSE 90; RESP 18; TEMP 97.6; O2SAT 95
--- NOTE | 2017-12-07 15:43 | HHI.PR ---
Subjective Remarks Follow-up for kyphoplasty Patient stated that she did not get any sleep last night. She stated that she feels awful because she has not got any sleep. She denied any back pain. I spoke to her nurse Josie who stated that patient is getting up but is a little unsteady so wants to work with patient more. Otherwise she has no other complaints. Objective Vitals Vital Signs Date Time Temp Pulse Resp B/P (MAP) Pulse Ox O2 Delivery O2 Flow Rate FiO2 12/07/17 08:00 98.2 90 18 154/77 (102) 98 12/07/17 07:02 20 12/07/17 04:00 96.9 87 16 155/88 (110) 96 12/07/17 04:00 96.9 87 16 155/88 (110) 96 12/07/17 00:00 96.5 89 16 139/75 (96) 97 12/06/17 23:11 93 18 160/84 (109) 97 12/06/17 20:00 96.7 80 18 191/88 (122) 97 12/06/17 18:25 98.0 81 19 160/93 (115) 98 Nasal Cannula 3 12/06/17 18:15 79 18 179/81 (113) 96 Nasal Cannula 3 12/06/17 18:00 80 19 175/89 (117) 99 Nasal Cannula 3 12/06/17 17:45 91 16 181/78 (112) 99 Nasal Cannula 3 12/06/17 17:30 91 16 192/91 (124) 99 Nasal Cannula 3 12/06/17 17:15 93 16 169/71 (103) 98 Nasal Cannula 3 12/06/17 17:13 97.9 92 14 182/83 (116) 98 Nasal Cannula 3 I/O 12/06/17 12/06/17 12/06/17 12/07/17 12/07/17 12/07/17 07:00 15:00 23:00 07:00 15:00 23:00 Intake Total 1410 ml 480 ml Output Total 160 ml Balance 1250 ml 480 ml Intake Oral 410 ml 480 ml IV Total 100 ml Other 900 ml Output Urine Total 160 ml # Voids 1 3 5 # Bowel Movements 0 0 Result Diagram: 12/03/1735 12/03/17 0835 Objective Remarks GENERAL: in NAD sitting in bed eating her lunch. CARDIOVASCULAR: Regular rate and rhythm without murmurs, gallops, or rubs. RESPIRATORY: Breath sounds equal bilaterally. No accessory muscle use. GASTROINTESTINAL: Abdomen soft, non-tender, nondistended. NEURO: No tremors noted. She is AAO 3. Procedures none Medications and IVs Current Medications Sodium Chloride 1,000 ml @ 200 mls/hr Q5H ONCE IV Last administered on 10:42; Start 11/29/17 at 10:15; Stop 11/29/17 at 15:14; Status DC Alprazolam (Xanax) 1 mg ONCE ONCE PO Last administered on 11/29/17at 12:52; Start 11/29/17 at 12:45; Stop 11/29/17 at 12:57; Status DC Lorazepam (Ativan Inj) 1 mg ONCE ONCE IV PUSH Last administered on 11/29/17 13:16; Start 11/29/17 at 13:00; Stop 11/29/17 at 13:01; Status DC Sodium Chloride 1,000 ml @ 100 mls/hr Q10H IV Last administered on 12/01/17at 06:00; Start 11/29/17 at 14:00; Stop 12/01/17 at 10:17; Status DC Sodium Chloride (NS Flush) 2 ml UNSCH PRN IV FLUSH FLUSH AFTER USING IV ACCESS ; Start 11/29/17 at 14:00 Sodium Chloride (NS Flush) 2 ml BID IV FLUSH Last administered on 12/07/17at 08: 43; Start 11/29/17 at 21:00 Acetaminophen (Tylenol) 650 mg Q4H PRN PO TEMP > 100.4/pain 1 - 10 Last administered on 12/05/17at 02:56; Start 11/29/17 at 14:00 Ondansetron HCl (Zofran Inj) 4 mg Q6H PRN IVP NAUSEA OR VOMITING Last administered on 11/29/17at 17:34; Start 11/29/17 at 14:00 Naloxone HCl (Narcan Inj) 0.4 mg UNSCH PRN IV PUSH SEE LABEL COMMENTS; Start at 14:00 Sennosides (Senokot) 17.2 mg Q12H PRN PO Moderate constipation; Start 11/29/17 at 14:00 Ketorolac Tromethamine (Toradol Inj) 15 mg Q6H PRN IV PUSH PAIN SCALE 1 TO 10 Last administered on 12/02/17at 12:06; Start 11/29/17 at 14:15; Stop 12/02/17 at 13:59; Status DC Levothyroxine Sodium (Synthroid) 25 mcg DAILY PO Last administered on at 08:41; Start 11/30/17 at 09:00 Paroxetine HCl (Paxil Cr) 50 mg DAILY PO Last administered on 12/07/17at 10:51; Start 11/30/17 at 09:00 Losartan Potassium (Cozaar) 25 mg DAILY PO Last administered on 12/07/17at 08:40 ; Start 11/29/17 at 15:15 Clonidine (Catapres) 0.1 mg Q6H PRN PO SBP>160, DBP>90 Last administered on at 05:30; Start 11/29/17 at 15:15 Flumazenil (Romazicon Inj) 0.2 mg Q1M PRN IV PUSH SEE LABEL COMMENTS; Start at 15:15 Lorazepam (Ativan) 1 mg Q4H PRN PO CIWA 8 - 10 Last administered on 12/03/17at 05:58; Start 11/29/17 at 15:15; Stop 12/03/17 at 12:55; Status DC Lorazepam (Ativan Inj) 1 mg Q4H PRN IV PUSH CIWA 8 - 10 Last administered on at 16:22; Start 11/29/17 at 15:15; Stop 12/03/17 at 12:55; Status DC Lorazepam (Ativan) 2 mg Q2H PRN PO CIWA 11-14; Start 11/29/17 at 15:15; Stop at 12:55; Status DC Lorazepam (Ativan Inj) 2 mg Q2H PRN IV PUSH CIWA 11-14 Last administered on at 10:08; Start 11/29/17 at 15:15; Stop 12/03/17 at 12:55; Status DC Lorazepam (Ativan Inj) 2 mg Q1H PRN IV PUSH CIWA 15-20 Last administered on at 16:25; Start 11/29/17 at 15:15; Stop 12/03/17 at 12:55; Status DC Lorazepam (Ativan Inj) 2 mg Q15M PRN IV PUSH CIWA > 20; Start 11/29/17 at 15:15 ; Stop 12/03/17 at 12:55; Status DC Hydralazine HCl (Apresoline Inj) 20 mg ONCE ONCE IV PUSH Last administered on 11/29/17at 16:04; Start 11/29/17 at 15:15; Stop 11/29/17 at 15:39; Status DC Lorazepam (Ativan) 0.5 mg Q8H PRN PO anxiety Last administered on 12/03/17at 08: 50; Start 11/30/17 at 11:00; Stop 12/03/17 at 12:55; Status DC Alprazolam (Xanax) 1 mg DRYWALL PROFESSIONAL ONCE PO Last administered on 11/30/17at 14:15; Start 11/30/17 at 14:15; Stop 11/30/17 at 14:16; Status DC Haloperidol Lactate (Haldol Inj) 2 mg Q8HR PRN IV PUSH ANXIETY /AGITATION Last administered on 12/04/17at 14:57; Start 11/30/17 at 15:00 Potassium Chloride (KCl) 40 meq ONCE ONCE PO Last administered on 12/01/17at 10 :45; Start 12/01/17 at 10:30; Stop 12/01/17 at 10:31; Status DC Alprazolam (Xanax) 1 mg Q8H PRN PO ANXIETY if refusing ativan; Start 12/01/17 at 10:30; Stop 12/01/17 at 13:48; Status DC Alprazolam (Xanax) 1 mg Q6H PRN PO ANXIETY if refusing ativan Last administered on 12/02/17at 09:39; Start 12/01/17 at 14:00; Stop 12/02/17 at 10:51 ; Status DC Diphenhydramine HCl (Benadryl Inj) 25 mg DRYWALL PROFESSIONAL ONCE IM Last administered on 12/01/17at 15:52; Start 12/01/17 at 14:00; Stop 12/01/17 at 14:01; Status DC Gadodiamide (Omniscan Pf Inj) 15 ml STK-MED ONCE IVCONTRAST Last administered on 12/01/17at 17:37; Start 12/01/17 at 17:37; Stop 12/01/17 at 17:38; Status DC Potassium Chloride (KCl) 30 meq ONCE ONCE PO Last administered on 12/02/17at 09 :39; Start 12/02/17 at 08:15; Stop 12/02/17 at 08:16; Status DC Gabapentin (Neurontin) 300 mg TID PO Last administered on 12/07/17at 14:00; Start 12/02/17 at 13:00 Potassium Chloride (KCl) 40 meq ONCE ONCE PO Last administered on 12/02/17at 16 :20; Start 12/02/17 at 15:00; Stop 12/02/17 at 15:01; Status DC Tramadol HCl (Ultram) 50 mg Q6H PRN PO pain 2-10 Last administered on at 12:03; Start 12/02/17 at 21:45; Stop 12/05/17 at 15:33; Status DC Ketorolac Tromethamine (Toradol Inj) 15 mg Q6H PRN IM breakthrough pain Last administered on 12/04/17at 20:41; Start 12/02/17 at 21:45; Stop 12/04/17 at 21:44 ; Status DC Alprazolam (Xanax) 0.5 mg Q8H PRN PO anxiety Last administered on 12/04/17at 09 :01; Start 12/03/17 at 13:00; Stop 12/04/17 at 10:01; Status DC Gabapentin (Neurontin) 300 mg TID PO ; Start 12/04/17 at 10:00; Status Cancel Lactulose (Lactulose Liq) 30 ml ONCE ONCE PO Last administered on 12/04/17at 10 :50; Start 12/04/17 at 10:00; Stop 12/04/17 at 10:02; Status DC Alprazolam (Xanax) 0.5 mg Q8H PRN PO preoperative anxiety Last administered on 12/07/17at 10:36; Start 12/05/17 at 09:30; Stop 12/08/17 at 06:00 Lactated Ringer's 1,000 ml @ 30 mls/hr Q24H PRN IV SEE LABEL COMMENTS; Start at 12:00; Stop 12/08/17 at 11:59 Sodium Chloride 500 ml @ 30 mls/hr [id number] PRN IV SEE LABEL COMMENTS; Start at 12:00; Stop 12/08/17 at 11:59 Metoprolol Tartrate (Lopressor) 25 mg DRYWALL PROFESSIONAL PRN PO SEE LABEL COMMENTS; Start 12/05/17 at 12:00; Stop 12/08/17 at 11:59 Povidone Iodine (Betadine 5% Antisepsis Kit) 1 applic DRYWALL PROFESSIONAL PRN EACH NARE SEE LABEL COMMENTS; Start 12/05/17 at 12:00; Stop 12/08/17 at 11:59 Chlorhexidine Gluconate (Chlorhexidine 2% Cloth) 3 pack DRYWALL PROFESSIONAL PRN TOPICAL SEE LABEL COMMENTS; Start 12/05/17 at 12:00; Stop 12/08/17 at 11:59 Acetaminophen/ Hydrocodone Bitart ([place] 10-325 Mg) 1 tab Q4H PRN PO PAIN SCALE 1 TO 5 Last administered on 12/05/17at 16:24; Start 12/05/17 at 15:45; Stop 12/05/17 at 18:08; Status DC Acetaminophen/ Hydrocodone Bitart ([place] 10-325 Mg) 2 tab Q4H PRN PO PAIN SCALE 6 TO 10; Start 12/05/17 at 15:45; Stop 12/05/17 at 18:08; Status DC Morphine Sulfate (Morphine Inj) 2 mg Q2HR PRN IV PUSH breakthrough pain; Start 12/05/17 at 15:45; Stop 12/05/17 at 18:08; Status DC Cefazolin Sodium/ Dextrose 50 ml @ 150 mls/hr ONCE ONCE IV Last administered on 12/06/17at 15:40; Start 12/06/17 at 06:00; Stop 12/06/17 at 06:19; Status DC Chlorhexidine Gluconate (Hibiclens 4% Top Soln) 1 applic HS TOP Last administered on 12/06/17at 22:01; Start 12/05/17 at 21:00; Stop 12/07/17 at 21:01 Tramadol HCl (Ultram) 50 mg Q6H PRN PO pain Last administered on 12/07/17at 06: 02; Start 12/05/17 at 18:15 Bupivacaine HCl/ Epinephrine Bitart (Sensorcaine-Epinephrine Pf 0.5% Inj) 30 ml STK-MED ONCE .ROUTE Last administered on 12/06/17at 16:33; Start 12/06/17 at 15: 27; Stop 12/06/17 at 15:28; Status DC Sodium Chloride 1,000 ml @ 100 mls/hr Q10H IV Last administered on 12/06/17at 18:00; Start 12/06/17 at 15:28 Cefazolin Sodium/ Dextrose 50 ml @ 100 mls/hr Q8H IV Last administered on 12/07at 08:42; Start 12/07/17 at 00:00; Stop 12/07/17 at 16:29 Pantoprazole Sodium (Protonix) 40 mg DAILY PO Last administered on 12/07/17at 08 :41; Start 12/07/17 at 09:00 Albuterol Sulfate (Albuterol Neb) 2.5 mg Q4HR NEB PRN INH WHEEZING; Start 12/06 at 15:30 Midazolam HCl (Versed Inj) 2 mg STK-MED ONCE .ROUTE ; Start 12/06/17 at 16:31; Stop 12/06/17 at 16:32; Status DC Acetaminophen 100 ml @ As Directed STK-MED ONCE IV ; Start 12/06/17 at 16:34; Stop 12/06/17 at 16:35; Status DC Ondansetron HCl (*ZOFRAN INJ PERIprocedural ONLY) 4 mg STK-MED ONCE .ROUTE Last administered on 12/06/17at 17:21; Start 12/06/17 at 17:21; Stop 12/06/17 at 17:22; Status DC Fentanyl Citrate (fentaNYL INJ) 100 mcg STK-MED ONCE .ROUTE ; Start 12/06/17 at 17:36; Stop 12/06/17 at 17:37; Status DC Midazolam HCl (Versed Inj) 4 mg STK-MED ONCE .ROUTE ; Start 12/06/17 at 17:36; Stop 12/06/17 at 17:37; Status DC Sugammadex Sodium (Bridion Inj) 200 mg STK-MED ONCE IV PUSH ; Start 12/06/17 at 17:36; Stop 12/06/17 at 17:37; Status DC Labetalol HCl (Trandate Inj) 100 mg STK-MED ONCE .ROUTE Last administered on at 17:54; Start 12/06/17 at 17:54; Stop 12/06/17 at 17:55; Status DC Miscellaneous Information ALL NURSING DEPARTME... UNSCH PRN .XX SEE LABEL COMMENTS; Start 12/06/17 at 17:11; Stop 12/07/17 at 17:10 A/P Problem List: (1) Fracture of L1 vertebra ICD Code: S32.019A - Unspecified fracture of first lumbar vertebra, initial encounter for closed fracture Status: Acute (2) Thyroid disease ICD Code: E07.9 - Disorder of thyroid, unspecified (3) HTN (hypertension) ICD Code: I10 - Essential (primary) hypertension (4) Anxiety ICD Code: F41.9 - Anxiety disorder, unspecified (5) Dehydration ICD Code: E86.0 - Dehydration Assessment and Plan Fracture of L1 vertebra Status post L1 kyphoplasty on 12/06 Neurosurgery consulted had MRI with L1 vertebral fracture Patient cleared by neurosurgeon to be discharged home with home health. Since patient is a little unsteady on her feet will keep in the hospital for 1 more days but she should be ready to discharge tomorrow. Thyroid disease Continue Synthroid HTN (hypertension) Continue with losartan, control pain Continue with IV blood pressure medicine Anxiety Patient does take Paxil. Psychiatrist was consulted. Recommendation was to avoid benzos. Continue gabapentin. We will treat as directed by psychiatrist but Xanax was restarted by neurosurgeon. Dehydration Continue with aggressive IV hydration, follow electrolytes Code Status full code Discharge Planning Most likely patient can be discharged home tomorrow with home health. Priya Trunog MD Dec 07, 2017 15:43
[2017-12-07 16:00] VITALS: BP 147/78; PULSE 95; RESP 18; TEMP 96.1; O2SAT 97
--- NOTE | 2017-12-07 16:23 | PD.OP ---
Operative Report Date of Surgery: Dec 06, 2017 Preoperative Diagnosis: L1 compression fracture Postoperative Diagnosis: L1 compression fracture Procedure: L1 kyphoplasty Anesthesia: general Surgeon: Wesley Mosher Home Administrator(s): Mary lam Operation and Findings: INDICATIONS FOR THE PROCEDURE ms Greco is a 72 year-old female who presented with intractable pain related to a compression fracture of L1. She failed weeks of nonsurgical management and a kyphoplasty was indicated as the most appropriate form of treatment. The [id number] details of the procedure, indications, alternatives, risks and potential complications were fully discussed with the patient. The patient fully understood. All The questions were answered. No guarantees were given. The patient voiced requesting the procedure and provided informed consents. The patient was offered the alternative of delaying the procedure and continuing with nonsurgical management. DETAILS OF THE SURGICAL PROCEDURE The patient was brought to the operating room and after the induction of general anesthesia, endotracheal intubation was performed. A Terrell catheter and bilateral FRANCISCO hose and sequential compression devices were placed and kept throughout the procedure. The patient was positioned prone on the Scott table over gel rods. All pressure points were carefully padded with egg crate mattress. The eyes were tapped shut after ointment was applied by the anesthesiologist to prevent corneal abrasion. A Vinny hugger was placed over the exposed lower body to maintain control of the core body temperature. The thoracic and lumbar region was prepped and draped in the usual sterile fashion. The C-arms were brought to the field and simultaneous AP and lateral x-rays were obtained. The levels were carefully counted and the pedicles were marked over the skin. An entry point was selected 1 centimeter superior and 1 centimeter lateral to the pedicle. Two small incisions were outlined on the skin and infiltrated with 1% lidocaine with epinephrine in 1:100 ,000 dilution. Initially, two small skin incisions were made with a #11 blade. Then, Jamshidi needles were carefully advanced to the entrance of the pedicle of L1, and then into the vertebral body under continuous fluoroscopic guidance. K-wires were placed inside the vertebral body of and the needles were carefully removed. A drill was used to create a trough into the vertebral body to insert a cannula. Once the cannula was located through the pedicle, the drill was removed and bilateral balloons were inserted into the L1 vertebral body for vertebral augmentation. A careful expansion of the balloon under continuous fluoroscopic guidance and manometric evaluation allowed expansion of the vertebral body. Then, the balloons were deflated and carefully removed and the voids created in the vertebral body were filled with bone cement under fluoroscopic visualization. A very good expansion of the vertebral bodies was achieved without evidence of extravasation or cement or other complications. The cannulas were then removed. The incisions were closed using a single stitch at each incision. Dermabond was applied to the skin. At the end of the procedure, the sponge, needle, instrument counts correct. The estimated blood loss as minimal. No intraoperative complications occurred. The patient received prophylactic antibiotics. The patient was then extubated and transferred to the recovery room in stable condition. Wesley Mosher MD Dec 07, 2017 16:23
[2017-12-07 20:00] VITALS: BP 145/74; PULSE 86; RESP 18; TEMP 95.2; O2SAT 96
[2017-12-07] MEDS: CHLORHEXIDINE GLUCONATE 4% SOLN 120 ML BTL TOP SCH (20:30)
[2017-12-08 01:47] VITALS: BP 142/60; PULSE 96; RESP 18; TEMP 97.6; O2SAT 95
[2017-12-08 06:45] VITALS: BP 140/62; PULSE 82; RESP 16; TEMP 97.6; O2SAT 96
[2017-12-08] MEDS: SODIUM CHLOR 0.9% 1000 ML INJ 1,000 ML IV SCH (07:28)
[2017-12-08 08:00] VITALS: BP 118/73; PULSE 84; RESP 18; TEMP 97.3; O2SAT 93
[2017-12-08] MEDS: PANTOPRAZOLE SOD 40 MG DELAYED RELEASE TAB PO SCH (08:22)
[2017-12-08] MEDS: GABAPENTIN 300 MG CAP PO SCH ×2 (08:23→13:00)
[2017-12-08] MEDS: LOSARTAN 25 MG TAB PO SCH (08:23)
[2017-12-08] MEDS: SODIUM CHLORIDE 0.9% FLUSH 10 ML FLUSH IV FLUSH SCH (08:23)
[2017-12-08] MEDS: LEVOTHYROXINE SODIUM 25 MCG TAB PO SCH (08:23)
[2017-12-08] MEDS: PARoxetine 25 MG CONTROLLED RELEASE TAB PO SCH (08:29)
[2017-12-08] MEDS: traMADol HCL 50 MG TAB PO PRN (08:32)
[2017-12-08 10:27] VITALS: O2SAT 99
--- NOTE | 2017-12-08 10:36 | HHI.FF ---
Face to Face Verification Diagnosis: (1) Fracture of L1 vertebra Physical Therapy Order: Evaluate and Treat Occupational Therapy Order: Evaluate and Treat I have seen patient Emilee Greco on 12/08/17. My clinical findings support the need for the requested home health care services because: Ltd mobility - disease progression I certify that my clinical findings support that this patient is homebound because: Unsteady gait/balance Val Espinoza MD Dec 08, 2017 10:36
[2017-12-08] MEDS ORDERED: BEDSIDE COMMODE1 MI1 (10:37)
--- NOTE | 2017-12-08 10:39 | HHI.PR ---
Subjective Remarks in no acute distress. pain is tolerable. no new complaints. d/w the RN and no acute issues over night. Objective Vitals Vital Signs Date Time Temp Pulse Resp B/P (MAP) Pulse Ox O2 Delivery O2 Flow Rate FiO2 12/08/17 10:27 99 21 12/08/17 08:00 97.3 84 18 118/73 (88) 93 12/08/17 06:45 97.6 82 16 140/62 (88) 96 12/08/17 01:47 97.6 96 18 142/60 (87) 95 12/07/17 20:00 95.2 86 18 145/74 (97) 96 12/07/17 16:00 96.1 95 18 147/78 (101) 97 12/07/17 12:00 97.6 90 18 151/69 (96) 95 I/O 12/07/17 12/07/17 12/07/17 12/08/17 12/08/17 12/08/17 06:59 14:59 22:59 06:59 14:59 22:59 Intake Total 480 ml 720 ml 480 ml Output Total 1000 ml Balance 480 ml 720 ml -520 ml Intake Oral 480 ml 720 ml 480 ml Output Urine Total 1000 ml # Voids 5 5 # Bowel Movements 0 0 Imaging Last Impressions Lumbar Spine X-Ray 12/06/17 0000 Signed Impressions: Service Date/Time: Wednesday, December 06, 2017 16:23 - CONCLUSION: No extruded cement material is identified following L1 kyphoplasty. Chano Arce MD Lumbar Spine MRI 12/01/17 0000 Signed Impressions: Service Date/Time: November 16:44 - CONCLUSION: Moderate severity subacute compression fracture injury at L1. This lesion does appear amenable to reduction and stabilization with kyphoplasty. Chano Cade MD Thoracic Spine CT 11/29/17 1014 Signed Impressions: Service Date/Time: Wednesday, November 29, 2017 10:55 - CONCLUSION: 1. No evidence of acute compression deformity or spondylolisthesis in the thoracic spine. 2. Superior endplate compression fracture at L1 with posterior protruding superior cortex indenting the thecal sac. Augustin Simmons MD Lumbar Spine CT 11/29/17 1014 Signed Impressions: Service Date/Time: Wednesday, November 29, 2017 10:55 - CONCLUSION: 1. L1 superior endplate compression fracture with sclerosis and thin fracture lines and retro-pulsed posterior superior cortex indenting on the thecal sac. The neural foramen remain patent. Possible nondisplaced hairline fracture through the left pedicle. 2. Prominent bilateral facet joint hypertrophy at L4-5, greater in severity in the left side with associated neural foraminal stenosis superimposed upon broad-based bulging of the disc. Augustin Simmons MD Objective Remarks GENERAL: This is a well-nourished, well-developed patient, in no apparent distress. CARDIOVASCULAR: Regular rate and regular rhythm without murmurs, gallops, or rubs. RESPIRATORY: Clear to auscultation. Breath sounds equal bilaterally. No wheezes , rales, or rhonchi. GASTROINTESTINAL: Abdomen soft, non-tender, nondistended. Normal, active bowel sounds MUSCULOSKELETAL: Extremities without clubbing, cyanosis, or edema. NEURO: Alert & Oriented x4 to person, place, time, situation. Moves all ext x4 Procedures none Medications and IVs Inpatient Medications Acetaminophen (Tylenol) 650 mg Q4H PRN PO TEMP > 100.4/pain 1 - 10 Last administered on 12/05/17at 02:56; Start 11/29/17 at 14:00 Acetaminophen/ Hydrocodone Bitart ([place] 10-325 Mg) 2 tab Q4H PRN PO PAIN SCALE 6 TO 10; Start 12/05/17 at 15:45; Stop 12/05/17 at 18:08; Status DC Albuterol Sulfate (Albuterol Neb) 2.5 mg Q4HR NEB PRN INH WHEEZING; Start 12/06 at 15:30 Alprazolam (Xanax) 0.5 mg Q8H PRN PO preoperative anxiety Last administered on 12/07/17at 21:03; Start 12/05/17 at 09:30; Stop 12/08/17 at 06:00; Status DC Cefazolin Sodium/ Dextrose 50 ml @ 100 mls/hr Q8H IV Last administered on 12/07at 17:22; Start 12/07/17 at 00:00; Stop 12/07/17 at 16:29; Status DC Chlorhexidine Gluconate (Chlorhexidine 2% Cloth) 3 pack ORE STORAGE DRIER PRN TOPICAL SEE LABEL COMMENTS; Start 12/05/17 at 12:00; Stop 12/08/17 at 11:59 Chlorhexidine Gluconate (Hibiclens 4% Top Soln) 1 applic HS TOP Last administered on 12/07/17at 20:30; Start 12/05/17 at 21:00; Stop 12/07/17 at 21:01 ; Status DC Clonidine (Catapres) 0.1 mg Q6H PRN PO SBP>160, DBP>90 Last administered on at 05:30; Start 11/29/17 at 15:15 Diphenhydramine HCl (Benadryl Inj) 25 mg ORE STORAGE DRIER ONCE IM Last administered on 12/01/17at 15:52; Start 12/01/17 at 14:00; Stop 12/01/17 at 14:01; Status DC Flumazenil (Romazicon Inj) 0.2 mg Q1M PRN IV PUSH SEE LABEL COMMENTS; Start at 15:15 Gabapentin (Neurontin) 300 mg TID PO Last administered on 12/08/17at 08:23; Start 12/02/17 at 13:00 Haloperidol Lactate (Haldol Inj) 2 mg Q8HR PRN IV PUSH ANXIETY /AGITATION Last administered on 12/04/17at 14:57; Start 11/30/17 at 15:00 Hydralazine HCl (Apresoline Inj) 20 mg ONCE ONCE IV PUSH Last administered on 11/29/17at 16:04; Start 11/29/17 at 15:15; Stop 11/29/17 at 15:39; Status DC Ketorolac Tromethamine (Toradol Inj) 15 mg Q6H PRN IM breakthrough pain Last administered on 12/04/17at 20:41; Start 12/02/17 at 21:45; Stop 12/04/17 at 21:44 ; Status DC Lactated Ringer's 1,000 ml @ 30 mls/hr Q24H PRN IV SEE LABEL COMMENTS; Start at 12:00; Stop 12/08/17 at 11:59 Lactulose (Lactulose Liq) 30 ml ONCE ONCE PO Last administered on 12/04/17at 10 :50; Start 12/04/17 at 10:00; Stop 12/04/17 at 10:02; Status DC Levothyroxine Sodium (Synthroid) 25 mcg DAILY PO Last administered on 12/08/17at 08:23; Start 11/30/17 at 09:00 Lorazepam (Ativan Inj) 2 mg Q15M PRN IV PUSH CIWA > 20; Start 11/29/17 at 15:15 ; Stop 12/03/17 at 12:55; Status DC Lorazepam (Ativan) 0.5 mg Q8H PRN PO anxiety Last administered on 12/03/17at 08: 50; Start 11/30/17 at 11:00; Stop 12/03/17 at 12:55; Status DC Losartan Potassium (Cozaar) 25 mg DAILY PO Last administered on 12/08/17at 08:23 ; Start 11/29/17 at 15:15 Metoprolol Tartrate (Lopressor) 25 mg ORE STORAGE DRIER PRN PO SEE LABEL COMMENTS; Start 12/05/17 at 12:00; Stop 12/08/17 at 11:59 Miscellaneous Information ALL NURSING DEPARTME... UNSCH PRN .XX SEE LABEL COMMENTS; Start 12/06/17 at 17:11; Stop 12/07/17 at 17:10; Status DC Morphine Sulfate (Morphine Inj) 2 mg Q2HR PRN IV PUSH breakthrough pain; Start 12/05/17 at 15:45; Stop 12/05/17 at 18:08; Status DC Naloxone HCl (Narcan Inj) 0.4 mg UNSCH PRN IV PUSH SEE LABEL COMMENTS; Start at 14:00 Ondansetron HCl (Zofran Inj) 4 mg Q6H PRN IVP NAUSEA OR VOMITING Last administered on 11/29/17at 17:34; Start 11/29/17 at 14:00 Pantoprazole Sodium (Protonix) 40 mg DAILY PO Last administered on 12/08/17at 08: 22; Start 12/07/17 at 09:00 Paroxetine HCl (Paxil Cr) 50 mg DAILY PO Last administered on 12/08/17at 08:29; Start 11/30/17 at 09:00 Potassium Chloride (KCl) 40 meq ONCE ONCE PO Last administered on 12/02/17at 16 :20; Start 12/02/17 at 15:00; Stop 12/02/17 at 15:01; Status DC Povidone Iodine (Betadine 5% Antisepsis Kit) 1 applic ORE STORAGE DRIER PRN EACH NARE SEE LABEL COMMENTS; Start 12/05/17 at 12:00; Stop 12/08/17 at 11:59 Sennosides (Senokot) 17.2 mg Q12H PRN PO Moderate constipation; Start 11/29/17 at 14:00 Sodium Chloride 1,000 ml @ 100 mls/hr Q10H IV Last administered on 12/06/17at 18:00; Start 12/06/17 at 15:28 Sodium Chloride (NS Flush) 2 ml BID IV FLUSH Last administered on 12/08/17at 08: 23; Start 11/29/17 at 21:00 Tramadol HCl (Ultram) 50 mg Q6H PRN PO pain Last administered on 12/08/17at 08:32 ; Start 12/05/17 at 18:15 A/P Problem List: (1) Fracture of L1 vertebra ICD Code: S32.019A - Unspecified fracture of first lumbar vertebra, initial encounter for closed fracture Status: Acute (2) Thyroid disease ICD Code: E07.9 - Disorder of thyroid, unspecified (3) HTN (hypertension) ICD Code: I10 - Essential (primary) hypertension (4) Anxiety ICD Code: F41.9 - Anxiety disorder, unspecified (5) Dehydration ICD Code: E86.0 - Dehydration Assessment and Plan Fracture of L1 vertebra Status post L1 kyphoplasty on 12/06 Neurosurgery consulted had MRI with L1 vertebral fracture Patient cleared by neurosurgeon to be discharged home with home health. Thyroid disease TSH 9.1 increase Synthroid- TSH in four weeks and f/u with pcp. HTN (hypertension) Continue with losartan, control pain Anxiety Patient does take Paxil. Psychiatrist was consulted. Recommendation was to avoid benzos. Continue gabapentin. We will treat as directed by psychiatrist but Xanax was restarted by neurosurgeon. Code Status full code Discharge Planning dc home with C today. see med list. f/u; pcp and neurosurgery. d/w the patient and MAHAD. Val Espinoza MD Dec 08, 2017 10:39
[2017-12-08] MEDS ORDERED: LEVO50TA4 PO (10:41)
[2017-12-08] MEDS ORDERED: ASPI81CH6 CHEW (10:44)
[2017-12-08 12:00] VITALS: BP 133/79; PULSE 94; RESP 18; TEMP 97.4; O2SAT 95
[2017-12-08] MEDS ORDERED: TRAM50 PO (12:06)
== END 2017-12-08 13:30 | disposition home health service (06) | DRG 517 ==
LOC: PHED 09:55 → PHEDA 12:56 → N05A 19:45 → N06B 12-06 15:37
PROVIDERS: ADMIT Hospitalist; ATTEND Internal Medicine
PROC: 0QU03JZ Supplement Lumbar Vertebra with Synthetic Substitute, Percutaneous Approach (ICD-10-PCS; 2017-12-06)
PROC: 0QS03ZZ Reposition Lumbar Vertebra, Percutaneous Approach (ICD-10-PCS; principal; 2017-12-06 15:46)
DX: S32.010A Wedge compression fracture of first lumbar vertebra, initial encounter for closed fracture (principal); E86.0 Dehydration; I10 Essential (primary) hypertension; E03.9 Hypothyroidism, unspecified; F41.9 Anxiety disorder, unspecified; F40.240 Claustrophobia; W19.XXXA Unspecified fall, initial encounter; Y92.89 Other specified places as the place of occurrence of the external cause
CPT/HCPCS: 51702; 72100; 72128; 72131; 72158; 80048; 80053; 81001; 83735; 84443; 85025; 85610; 85730; 88307; 88311; 93005; 94150; 96360; 96361; A9579; J0131; J0360; J0690; J1100; J1200; J1630; J1885; J2060; J2250; J2370; J2405; J3010; J7030; L0200; L0484